=== PATIENT | female | born 1965 | race Caucasian/White ===

== ENCOUNTER 2016-05-04 12:54 | Emergency (ER) | payer MEDICAID ==
--- NOTE | 2016-05-04 14:04 | ER Document Report ---
ED Medical Screen (RME) - General Chief Complaint: Blood in Catheter Stated Complaint: URINARY PROBLEM Mode of Arrival: Wheelchair Information source: Patient Notes: Patient states she is having blood in her urine in indweling marin bag with clots that started today. She denies any pain. She thinks she has had a bladder infection since last week. She states this has never happened before. She has chronic back pain and does not think it is related to this problem. Denies fever , chills, nausea, vomiting, diarrhea, vaginal discharge. She spoke with on-call nurse who instructed her to come to ED. TRAVEL OUTSIDE OF THE [place] IN LAST 30 DAYS: No - Related Data Allergies/Adverse Reactions: ziprasidone HCl [From Geodon] Allergy (Mild, Verified 05/04/16 13:03) itching acetaminophen [Acetaminophen] Adverse Reaction (Unknown, Verified 05/04/16 13:03 ) Past Medical History - Past Medical History Cardiac Medical History: Reports: Hx Atrial Fibrillation, Hx Congestive Heart Failure, Hx Coronary Artery Disease, Hx Hypercholesterolemia, Hx Hypertension, Hx Heart Murmur Pulmonary Medical History: Reports: Hx Asthma, Hx Bronchitis, Hx COPD, Hx Pneumonia, Hx Intubation, Hx Respiratory Failure, Hx Sleep Apnea Endocrine Medical History: Reports: Hx Diabetes Mellitus Type 2 Renal/ Medical History: Reports: Hx Renal Insufficiency GI Medical History: Reports: Hx Gastroesophageal Reflux Disease, Hx Hiatal Hernia Musculoskeltal Medical History: Reports Hx Arthritis, Reports Hx Fibromyalgia Psychiatric Medical History: Reports: Hx Attention Deficit Hyperactivity Disorder, Hx Bipolar Disorder, Hx Depression Traumatic Medical History: Reports: Hx Fractures Infectious Medical History: Reports: Hx C-Diff, Hx MRSA Past Surgical History: Reports: Hx Appendectomy, Hx Tonsillectomy - Immunizations Hx Diphtheria, Pertussis, Tetanus Vaccination: Yes Review of Systems - Review of Systems Constitutional: See HPI Gastrointestinal: See HPI Genitourinary: See HPI Physical Exam - Vital signs Vitals: Temp Pulse Resp BP Pulse Ox 97.5 F 69 20 131/55 H 97 05/04/16 13:00 05/04/16 13:00 05/04/16 13:00 05/04/16 13:00 05/04/16 13:00 - Notes Notes: General: well-appearing, no respiratory distress : dark red urine noted in marin bag and tubing. Course - Re-evaluation Re-evalutation: 05/04/16 14:03 Patient seen and examined. VSS, hematuria noted in marin bag. Ordered urinalysis. - Vital Signs Vital signs: Temp Pulse Resp BP Pulse Ox 97.5 F 69 20 131/55 H 97 05/04/16 13:00 05/04/16 13:00 05/04/16 13:00 05/04/16 13:00 05/04/16 13:00
[2016-05-04 14:46] LABS: APPEARANCE,URINE TURBID; BILIRUBIN,URINE NEGATIVE (NEGATIVE); GLUCOSE, URINE NEGATIVE (NEGATIVE); KETONES,URINE NEGATIVE (NEGATIVE); LEUKOCYTE ESTERASE,URINE MODERATE (NEGATIVE); NITRITE,URINE POSITIVE (NEGATIVE); PROTEIN,URINE 100 mg/dL (NEGATIVE); URINE SPECIFIC GRAVITY 1.013; UROBILINOGEN,URINE NEGATIVE mg/dL (<2.0)
--- NOTE | 2016-05-04 18:09 | ER Document Report ---
ED General - General Chief Complaint: Blood in Catheter Stated Complaint: URINARY PROBLEM Mode of Arrival: Wheelchair Notes: This is a 50-year-old female with a history of COPD hypertension diabetes mellitus type II lymphedema CHF that presents today with a one-day history of hematuria. She states that she noticed blood in her catheter bag at 12 noon today. Denies nausea vomiting fever chills chest pain shortness of breath. Primary care physician is Dr. Danica Jerry. TRAVEL OUTSIDE OF THE [place] IN LAST 30 DAYS: No - Related Data Allergies/Adverse Reactions: ziprasidone HCl [From Geodon] Allergy (Mild, Verified 05/04/16 13:03) itching acetaminophen [Acetaminophen] Adverse Reaction (Unknown, Verified 05/04/16 13:03 ) Past Medical History - General Information source: Patient - Social History Smoking Status: Unknown if Ever Smoked Family History: Reviewed & Not Pertinent, CAD, DM, Hypertension Patient has suicidal ideation: No Patient has homicidal ideation: No - Past Medical History Cardiac Medical History: Reports: Hx Atrial Fibrillation, Hx Congestive Heart Failure, Hx Coronary Artery Disease, Hx Hypercholesterolemia, Hx Hypertension, Hx Heart Murmur Pulmonary Medical History: Reports: Hx Asthma, Hx Bronchitis, Hx COPD, Hx Pneumonia, Hx Intubation, Hx Respiratory Failure, Hx Sleep Apnea Endocrine Medical History: Reports: Hx Diabetes Mellitus Type 2 Renal/ Medical History: Reports: Hx Renal Insufficiency GI Medical History: Reports: Hx Gastroesophageal Reflux Disease, Hx Hiatal Hernia Musculoskeltal Medical History: Reports Hx Arthritis, Reports Hx Fibromyalgia Psychiatric Medical History: Reports: Hx Attention Deficit Hyperactivity Disorder, Hx Bipolar Disorder, Hx Depression Traumatic Medical History: Reports: Hx Fractures Infectious Medical History: Reports: Hx C-Diff, Hx MRSA Past Surgical History: Reports: Hx Appendectomy, Hx Tonsillectomy - Immunizations Hx Diphtheria, Pertussis, Tetanus Vaccination: Yes Hx Pneumococcal Vaccination: 05/06/09 Review of Systems - Review of Systems Constitutional: denies: Chills, Diaphoresis, Fever, Weakness Cardiovascular: denies: Chest pain, Palpitations Respiratory: denies: Cough, Hurts to breathe Genitourinary: See HPI Female Genitourinary: See HPI Musculoskeletal: denies: Muscle pain Physical Exam - Vital signs Vitals: Temp Pulse Resp BP Pulse Ox 97.5 F 69 20 131/55 H 97 05/04/16 13:00 05/04/16 13:00 05/04/16 13:00 05/04/16 13:00 05/04/16 13:00 - General General appearance: Alert In distress: None - HEENT Head: Normocephalic, Atraumatic Eyes: Normal - Respiratory Respiratory status: No respiratory distress Breath sounds: Normal. No: Rales, Rhonchi, Stridor, Wheezing - Cardiovascular Rhythm: Regular Heart sounds: Normal auscultation - Abdominal Inspection: Normal Tenderness: No: Tender - Extremities General upper extremity: Normal inspection General lower extremity: Normal inspection - Psychological Associated symptoms: Normal affect - Skin Skin Temperature: Warm Skin Moisture: Dry Skin Color: Normal Course - Re-evaluation Re-evalutation: 05/04/16 18:12 Catheter was flushed and bladder bag no longer has blood. There are no more clots in in the catheter line nor in the bag. Patient admits to some dysuria. WIll treat mild UTI. She denies flank pain, fever, chills. Vitals are normal. - Vital Signs Vital signs: Temp Pulse Resp BP Pulse Ox 97.6 F 65 20 143/60 H 95 05/04/16 18:11 05/04/16 18:11 05/04/16 18:11 05/04/16 18:11 05/04/16 18:11 - Laboratory Laboratory results interpreted by me: 05/04/16 14:15 Urine Protein 100 H Urine Blood MODERATE H Urine Nitrite POSITIVE H Ur Leukocyte Esterase MODERATE H Discharge - Discharge Clinical Impression: Hematuria Urinary tract infection Qualifiers: Urinary tract infection type: site unspecified Hematuria presence: with hematuria Qualified Code(s): N39.0 - Urinary tract infection, site not specified Condition: Stable Disposition: HOME, SELF-CARE Additional Instructions: Return to the emergency department if symptoms worsen. Follow-up with primary care physician. Prescriptions: Sulfamethoxazole/Trimethoprim [Bactrim Ds Tablet] 1 each PO BID #6 tablet Referrals: PACO NEGRETE MD [Primary Care Provider] - Follow up as needed
[2016-05-04 18:13] VITALS: BP 143/60
== END 2016-05-04 18:16 | disposition home or self-care (01) ==
LOC: ER 12:54
DX: N39.0 Urinary tract infection, site not specified (principal); R31.9 Hematuria, unspecified; T83.9XXA Unspecified complication of genitourinary prosthetic device, implant and graft, initial encounter; J44.9 Chronic obstructive pulmonary disease, unspecified; I10 Essential (primary) hypertension; E11.9 Type 2 diabetes mellitus without complications; I50.9 Heart failure, unspecified
CPT/HCPCS: 81001; 87086; 87088; 87186; 99283

== ENCOUNTER → 2016-05-14 | Outpatient (CLI) | payer MEDICAID ==
--- NOTE | 2016-05-14 17:54 | WOMENS IMAGING REPORT ---
EXAM DESCRIPTION: U/S BREAST UNILAT LIMITED COMPLETED DATE/TIME: 05/14/2016 1:36 pm REASON FOR STUDY: R92.2 INCONCLUSIVE MAMMO N63 UNSPECIFIED LUMP IN BREAST COMPARISON: Mammograms 04/17/2016 TECHNIQUE: Real-time and static grayscale imaging performed of the right and left breast targeted to the area of mammographic concern. Selected color Doppler images recorded. LIMITATIONS: None. FINDINGS: On the right side, a benign intramammary lymph node is present in the foreign matter old r ight 9 o'clock position, measuring about 13 x 8 mm in size. This correlates with the mammographic fi ndings. In the far left upper outer quadrant near the axillary tail, a 6 x 8 mm intramammary lymph node is pr esent, correlating with the mammographic findings. BIRAD: 2 Benign findings. RECOMMENDATION: RECOMMENDED FOLLOW-UP: Please continue yearly screening in April 2017 COMMENT: The [employer] (A[employer]) has developed recommendations for screening MRI of the breasts in certain patient populations, to be used in conjunction with mammography. Breast MRI s urveillance may be appropriate for women with more than 20% lifetime risk of developing breast cancer as determined by genetic testing, significant family history of the disease, or history of mantle r adiation for Hodgkins Disease. ACR Practice Guidelines 2008. TECHNICAL DOCUMENTATION: JOB ID: [id number] [employer]- All Rights Reserved
== END ==
LOC: WI 12:36
PROVIDERS: ATTEND Physician Assistant
DX: R92.2 Inconclusive mammogram (principal)
CPT/HCPCS: 76642

== ENCOUNTER 2016-07-25 11:43 | Emergency (ER) | payer MEDICAID ==
[2016-07-25] MEDS ORDERED: ONDANSETRON HCL INJ/PF 4 MG/2 ML SDV IV ONE (12:22)
[2016-07-25] MEDS ORDERED: IPRATROPIUM/ALBUTEROL 0.5-2.5 MG/3 ML AMPUL NEB ONE (12:22)
[2016-07-25] MEDS ORDERED: PREDNISONE 20 MG TABLET PO ONE (12:22)
[2016-07-25 13:05] LABS: ABSOLUTE EOSINOPHILS # (AUTO) 0.1 10^3/uL (0.0-0.6); ABSOLUTE LYMPHOCYTES (AUTO) 0.8 10^3/uL (0.5-4.7); ABSOLUTE MONOCYTES (AUTO) 0.6 10^3/uL (0.1-1.4); ABSOLUTE NEUT (AUTO) 7.4 10^3/uL (1.7-8.2); BASOPHILS % (AUTO) 0.2 % (0-2); EOSINOPHILS % (AUTO) 0.9 % (0-6); HEMATOCRIT 34.5 % (36.0-47.0); HEMOGLOBIN 11.4 g/dL (12.0-15.5); HGB HCT DIFFERENCE -0.3; LYMPHOCYTES % (AUTO) 9.2 % (13-45); MEAN CORPUSCULAR HEMOGLOBIN 26.4 pg (27.0-33.4); MEAN CORPUSCULAR HGB CONC 33.2 g/dL (32.0-36.0); MEAN CORPUSCULAR VOLUME 80 fl (80-97); MONOCYTES % (AUTO) 6.8 % (3-13); RED BLOOD COUNT 4.34 10^6/uL (3.72-5.28); RED CELL DISTRIBUTION WIDTH 15.8 % (11.5-14.0); SEGMENTED NEUTROPHILS % (AUTO) 82.9 % (42-78)
[2016-07-25 13:20] LABS: ALANINE AMINOTRANSFERASE 27 U/L (9-52); ALBUMIN 3.7 g/dL (3.5-5.0); ALKALINE PHOSPHATASE 84 U/L (38-126); ANION GAP 12 (5-19); ASPARTATE AMINO TRANSFERASE 16 U/L (14-36); BILIRUBIN,DIRECT 0.2 mg/dL (0.0-0.4); BILIRUBIN,TOTAL 0.4 mg/dL (0.2-1.3); BLOOD UREA NITROGEN 13 mg/dL (7-20); CALCIUM 9.2 mg/dL (8.4-10.2); CARBON DIOXIDE 33 mmol/L (22-30); CHLORIDE 90 mmol/L (98-107); CREATINE KINASE 28 U/L (30-135); CREATININE RESULT 0.76 mg/dL (0.52-1.25); GLUCOSE 101 mg/dL (75-110); LIPASE 113.7 U/L (23-300); MAGNESIUM 1.5 mg/dL (1.6-2.3); POTASSIUM 3.8 mmol/L (3.6-5.0); SODIUM 135.3 mmol/L (137-145); TOTAL PROTEIN 6.6 g/dL (6.3-8.2)
[2016-07-25 13:33] LABS: CREATINE KINASE MB 0.24 ng/mL (<4.55)
[2016-07-25 13:36] LABS: TROPONIN I < 0.012 ng/mL
[2016-07-25] MEDS ORDERED: MAGNESIUM OXIDE 400 MG TABLET PO ONE (14:47)
[2016-07-25] MEDS ORDERED: LIDOCAINE 2% VISCOUS SOLN 20 ML UDCUP PO ONE (14:51)
[2016-07-25] MEDS ORDERED: MAG HYDROX/AL HYDROX/SIMETH SUSP 30 ML UDCUP PO ONE (14:51)
--- NOTE | 2016-07-25 15:25 | ER Document Report ---
ED GI/ - General Chief Complaint: Nausea Stated Complaint: NAUSEA,UNABLE TO EAT Mode of Arrival: Wheelchair Information source: Patient Notes: Patient reports nausea for the past week. Patient does complain of some mild epigastric pain. Patient denies any chest pain, cough, or fever. Patient states she has not had any vomiting but does not really she can keep her food down. Patient does have epigastric pain, but states that it feels similar to when she's had problems with reflux in the past. TRAVEL OUTSIDE OF THE [place] IN LAST 30 DAYS: No - HPI Patient complains to provider of: Abdominal pain Onset: Last week Timing/Duration: Persistent Quality of pain: Burning Pain Level: 2 Location: Epigastric Vaginal bleeding (Compared to normal period): None Associated symptoms: Nausea. denies: Dizzy, Dysuria, Fever, Urinary hesitancy, Urinary frequency, Urinary retention, Vaginal discharge, Vomiting Exacerbated by: Denies Relieved by: Denies Similar symptoms previously: Yes - GERD Recently seen / treated by doctor: No - Related Data Allergies/Adverse Reactions: ziprasidone HCl [From Geodon] Allergy (Mild, Verified 05/04/16 13:03) itching acetaminophen [Acetaminophen] Adverse Reaction (Unknown, Verified 05/04/16 13:03 ) Past Medical History - General Information source: Patient - Social History Smoking Status: Current Every Day Smoker - Half pack per day Frequency of alcohol use: None Drug Abuse: None Lives with: Friend Family History: Reviewed & Not Pertinent, CAD, DM, Hypertension - Past Medical History Cardiac Medical History: Reports: Hx Atrial Fibrillation, Hx Congestive Heart Failure, Hx Coronary Artery Disease, Hx Hypercholesterolemia, Hx Hypertension, Hx Heart Murmur Pulmonary Medical History: Reports: Hx Asthma, Hx Bronchitis, Hx COPD, Hx Pneumonia, Hx Intubation, Hx Respiratory Failure, Hx Sleep Apnea Endocrine Medical History: Reports: Hx Diabetes Mellitus Type 2 Renal/ Medical History: Reports: Hx Renal Insufficiency GI Medical History: Reports: Hx Gastroesophageal Reflux Disease, Hx Hiatal Hernia Musculoskeltal Medical History: Reports Hx Arthritis, Reports Hx Fibromyalgia Psychiatric Medical History: Reports: Hx Attention Deficit Hyperactivity Disorder, Hx Bipolar Disorder, Hx Depression Traumatic Medical History: Reports: Hx Fractures Infectious Medical History: Reports: Hx C-Diff, Hx MRSA Past Surgical History: Reports: Hx Appendectomy, Hx Tonsillectomy - Immunizations Hx Diphtheria, Pertussis, Tetanus Vaccination: Yes Hx Pneumococcal Vaccination: 05/06/09 Review of Systems - Review of Systems Constitutional: No symptoms reported. denies: Fever, Recent illness EENT: No symptoms reported Cardiovascular: No symptoms reported. denies: Chest pain, Dizziness Respiratory: No symptoms reported, Cough. denies: Short of breath Gastrointestinal: Abdominal pain, Diarrhea - Chronic, Nausea. denies: Vomiting Genitourinary: Other - Chronic indwelling Ceja Female Genitourinary: No symptoms reported Musculoskeletal: No symptoms reported. denies: Back pain Skin: No symptoms reported Hematologic/Lymphatic: No symptoms reported Neurological/Psychological: No symptoms reported Physical Exam - Vital signs Vitals: Temp Pulse Resp BP Pulse Ox 98.9 F 78 28 H 156/59 H 96 07/25/16 11:48 07/25/16 11:48 07/25/16 11:48 07/25/16 11:48 07/25/16 11:48 - General General appearance: Appears well, Alert In distress: None - HEENT Head: Normocephalic, Atraumatic Eyes: Normal Conjunctiva: Normal Nasal: Normal Mouth/Lips: Normal Mucous membranes: Normal Neck: Normal, Supple. No: Lymphadenopathy - Respiratory Respiratory status: No respiratory distress Chest status: Nontender Breath sounds: Nonproductive cough, Wheezing Chest palpation: Normal - Cardiovascular Rhythm: Regular Heart sounds: S1 appreciated, S2 appreciated Murmur: No - Abdominal Inspection: Morbidly Obese - With very large pannus, ventral hernia nontender to palpation Distension: No distension Bowel sounds: Normal Tenderness: Tender - Mild epigastric tenderness - Back Back: Normal, Nontender. No: CVA tenderness - Extremities General upper extremity: Normal inspection, Normal ROM General lower extremity: Normal inspection, Normal ROM - Neurological Neuro grossly intact: Yes Cognition: Normal Gissel Coma Scale Eye Opening: Spontaneous [place] Coma Scale Verbal: Oriented Gissel Coma Scale Motor: Obeys Commands Gissel Coma Scale Total: 15 - Psychological Associated symptoms: Normal affect, Normal mood - Skin Skin Temperature: Warm Skin Moisture: Dry Skin Color: Erythema - to folds under her pannus and inguinal area Course - Re-evaluation Re-evalutation: 07/25/16 15:19 Abdominal pain resolved. Patient states she feels better after GI cocktail as well as the nausea medication. Patient is requesting to be discharged home. Patient states that she has a home health provider that comes to change her catheter next week and currently denies any change in the look of the urinary drainage to her back. Patient denies any concern about UTI this time. Patient without any lower pelvic pain. Patient's wheezing improved after nebulizer treatment. No concern for cardiac pathology at this time. - Vital Signs Vital signs: Temp Pulse Resp BP Pulse Ox 98.9 F 87 24 H 153/68 H 92 07/25/16 11:48 07/25/16 15:39 07/25/16 15:39 07/25/16 15:39 07/25/16 15:39 - Laboratory Result Diagrams: 07/25/16 12:54 07/25/16 12:54 Laboratory results interpreted by me: 07/25/16 07/25/16 12:54 12:54 Hgb 11.4 L Hct 34.5 L MCH 26.4 L RDW 15.8 H Seg Neutrophils % 82.9 H Lymphocytes % 9.2 L Sodium 135.3 L Chloride 90 L Carbon Dioxide 33 H Magnesium 1.5 L Creatine Kinase 28 L 07/25/16 15:22 Labs- Entire Visit 07/25/16 07/25/16 07/25/16 12:54 12:54 12:54 WBC 9.0 RBC 4.34 Hgb 11.4 L Hct 34.5 L MCV 80 MCH 26.4 L MCHC 33.2 RDW 15.8 H Plt Count 150 Seg Neutrophils % 82.9 H Lymphocytes % 9.2 L Monocytes % 6.8 Eosinophils % 0.9 Basophils % 0.2 Absolute Neutrophils 7.4 Absolute Lymphocytes 0.8 Absolute Monocytes 0.6 Absolute Eosinophils 0.1 Absolute Basophils 0.0 Sodium 135.3 L Potassium 3.8 Chloride 90 L Carbon Dioxide 33 H Anion Gap 12 BUN 13 Creatinine 0.76 Est GFR ( Amer) > 60 Est GFR (Non-Af Amer) > 60 Glucose 101 Calcium 9.2 Magnesium 1.5 L Total Bilirubin 0.4 Direct Bilirubin 0.2 Indirect Bilirubin Not Reportable Neonat Total Bilirubin Not Reportable AST 16 ALT 27 Alkaline Phosphatase 84 Creatine Kinase 28 L CK-MB (CK-2) 0.24 Troponin I < 0.012 Total Protein 6.6 Albumin 3.7 Lipase 113.7 07/25/16 18:23 - Diagnostic Test Radiology reviewed: Reports reviewed Discharge - Discharge Clinical Impression: Nausea, Epigastric pain, Hx of gastroesophageal reflux (GERD), Wheezing, Asthma exacerbation, Hypomagnesemia, Xiao infection of flexural skin Disposition: HOME, SELF-CARE Instructions: Abdominal Pain ([facility]), Antinausea Medication ([facility]), Nausea or Vomiting, Nonspecific ([facility]), Reflux Disease (GERD) ([facility]), Asthma ([facility]), Steroid Medication Additional Instructions: Return immediately for any new or worsening symptoms Followup with your primary care provider, call Wednesday to make a follow-up appointment Continue to take your Prilosec as previously prescribed. You may take over-the- counter Maalox to help with reflux symptoms. Prescriptions: Magnesium Oxide [Magox] 400 mg PO BID #14 tablet Nystatin [Mycostatin Cream 15 gm] 1 applic TP BID #60 gm Ondansetron HCl [Zofran 4 mg Tablet] 1 - 2 tab PO Q6 PRN #15 tablet PRN Reason: Prednisone [Deltasone 20 mg Tablet] 3 tab PO DAILY 4 Days Referrals: MARILYNN BAY PA-C [Primary Care Provider] - 07/27/16
[2016-07-25 15:41] VITALS: BP 153/68
--- NOTE | 2016-07-25 17:13 | EKG REPORT ---
SEVERITY:- BORDERLINE ECG - SINUS RHYTHM BORDERLINE R WAVE PROGRESSION, ANTERIOR LEADS NONSPECIFIC LATERAL ST-T CHANGES : Confirmed by: Juan Avalos MD 25-Jul-2016 17:12:44
== END 2016-07-25 15:41 | disposition home or self-care (01) ==
LOC: ER 11:43
DX: R11.0 Nausea (principal); R10.13 Epigastric pain; K21.9 Gastro-esophageal reflux disease without esophagitis; J45.901 Unspecified asthma with (acute) exacerbation; E83.42 Hypomagnesemia; B37.2 Candidiasis of skin and nail; R19.7 Diarrhea, unspecified; E66.01 Morbid (severe) obesity due to excess calories; F17.210 Nicotine dependence, cigarettes, uncomplicated; I48.91 Unspecified atrial fibrillation; I50.9 Heart failure, unspecified; I25.10 Atherosclerotic heart disease of native coronary artery without angina pectoris; E78.00 Pure hypercholesterolemia, unspecified; I11.0 Hypertensive heart disease with heart failure; E11.9 Type 2 diabetes mellitus without complications; J44.9 Chronic obstructive pulmonary disease, unspecified; Z88.6 Allergy status to analgesic agent; Z86.14 Personal history of Methicillin resistant Staphylococcus aureus infection
CPT/HCPCS: 93005; 94640; 99284; 96374; 36415; 82553; 82550; 83690; 83735; 85025; 80053; 84484; 71010; 93010; J3490 ×3; J7512; J2405; J7620

== ENCOUNTER 2016-07-25 20:47 | Emergency (ER) | payer MEDICAID ==
[2016-07-25] MEDS ORDERED: HYDROCODONE/ACETAMINOPHEN 5-325 MG TABLET PO ONE (21:19)
[2016-07-25] MEDS ORDERED: ONDANSETRON 4 MG TAB.RAPDIS PO ONE (21:20)
[2016-07-25] MEDS ORDERED: FAMOTIDINE 20 MG TABLET PO ONE (21:20)
[2016-07-25] MEDS ORDERED: SUCRALFATE 1 GM TABLET PO ONE (21:20)
--- NOTE | 2016-07-25 21:23 | ER Document Report ---
ED GI/ - General Chief Complaint: Epigastric Pain Stated Complaint: ABDOMINAL PAIN Time seen by provider: 21:15 Notes: Patient is a 50-year-old female that comes emergency department by EMS for chief complaint of upper abdominal pain. She states that when she was seen earlier she was given a "GI cocktail", and after this she felt much improved, she states after she went home seemed to wear off and she began to feel pain and nausea again. She states she has had nausea for about one week and today started feeling discomfort in her mid upper abdomen. 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 She states she thinks she had a hiatal hernia repair in the past but thinks it "slipped out". She has had an appendectomy. Patient states she had a normal bowel movement yesterday. She denies fever. Patient denies any other complaints. TRAVEL OUTSIDE OF THE [place] IN LAST 30 DAYS: No - Related Data Allergies/Adverse Reactions: ziprasidone HCl [From Geodon] Allergy (Mild, Verified 05/04/16 13:03) itching acetaminophen [Acetaminophen] Adverse Reaction (Unknown, Verified 05/04/16 13:03 ) Past Medical History - General Information source: Patient - Social History Smoking Status: Never Smoker Lives with: Family Family History: Reviewed & Not Pertinent, CAD, DM, Hypertension - Past Medical History Cardiac Medical History: Reports: Hx Atrial Fibrillation, Hx Congestive Heart Failure, Hx Coronary Artery Disease, Hx Hypercholesterolemia, Hx Hypertension, Hx Heart Murmur Pulmonary Medical History: Reports: Hx Asthma, Hx Bronchitis, Hx COPD, Hx Pneumonia, Hx Intubation, Hx Respiratory Failure, Hx Sleep Apnea Endocrine Medical History: Reports: Hx Diabetes Mellitus Type 2 Renal/ Medical History: Reports: Hx Renal Insufficiency GI Medical History: Reports: Hx Gastroesophageal Reflux Disease, Hx Hiatal Hernia Musculoskeltal Medical History: Reports Hx Arthritis, Reports Hx Fibromyalgia Psychiatric Medical History: Reports: Hx Attention Deficit Hyperactivity Disorder, Hx Bipolar Disorder, Hx Depression Traumatic Medical History: Reports: Hx Fractures Infectious Medical History: Reports: Hx C-Diff, Hx MRSA Past Surgical History: Reports: Hx Appendectomy, Hx Tonsillectomy - Immunizations Hx Diphtheria, Pertussis, Tetanus Vaccination: Yes Hx Pneumococcal Vaccination: 05/06/09 Review of Systems - Review of Systems Constitutional: No symptoms reported EENT: No symptoms reported Cardiovascular: No symptoms reported Respiratory: No symptoms reported Gastrointestinal: See HPI Genitourinary: No symptoms reported Female Genitourinary: No symptoms reported Musculoskeletal: No symptoms reported Skin: No symptoms reported Hematologic/Lymphatic: No symptoms reported Neurological/Psychological: No symptoms reported Physical Exam - Vital signs Vitals: Resp BP Pulse Ox 25 H 154/102 H 96 07/25/16 20:56 07/25/16 20:56 07/25/16 20:56 Interpretation: Normal - General General appearance: Appears well In distress: None - Patient is extremely obese, lying on her side, however she is alert and well-appearing - HEENT Head: Normocephalic, Atraumatic Eyes: Normal Conjunctiva: Normal Extraocular movements intact: Yes Eyelashes: Normal Pupils: PERRL Nasal: Normal Mouth/Lips: Normal Mucous membranes: Normal Pharynx: Normal Neck: Normal - Respiratory Respiratory status: No respiratory distress Chest status: Nontender Breath sounds: Decreased air movement, Other - A few scattered rhonchi Chest palpation: Normal - Cardiovascular Rhythm: Regular Heart sounds: Normal auscultation Murmur: No - Abdominal Inspection: Normal Distension: No distension Bowel sounds: Normal Tenderness: Nontender - Exam limited by obesity, however I do not appreciate any tenderness. No: Tender, Guarding - Back Back: Normal, Nontender - Extremities General upper extremity: Normal inspection, Nontender, Normal color, Normal ROM , Normal temperature General lower extremity: Normal inspection, Nontender, Normal color, Normal ROM , Normal temperature, Normal weight bearing. No: Greyson's sign - Neurological Neuro grossly intact: Yes Cognition: Normal Orientation: AAOx4 Gissel Coma Scale Eye Opening: Spontaneous [place] Coma Scale Verbal: Oriented [place] Coma Scale Motor: Obeys Commands Gissel Coma Scale Total: 15 Speech: Normal Motor strength normal: LUE, RUE, LLE, RLE Sensory: Normal - Psychological Associated symptoms: Normal affect, Normal mood - Skin Skin Temperature: Warm Skin Moisture: Dry Skin Color: Normal Course - Re-evaluation Re-evalutation: Patient does not have obvious palpable abdominal tenderness, however because patient is extremely morbidly obese this is difficult to evaluate. Patient is resting comfortably, no tachycardia, no hypotension, is very well-appearing. Patient reporting the GI cocktail made her feel significantly better but only for a short time and then this resolved. Patient given Carafate, Zofran, Pepcid , she also asked for Vicodin, given [place], afterwards she complained that the acetaminophen in it gave her restless legs. Laboratory workup with no significant change. Patient is impossible to perform imaging on because of her massive size. Patient still well-appearing and stating she feels much better after medications. I discussed with patient, she states she is supposed to get a colonoscopy coming up, this will happen in the or, recommended she contact the bioprocess engineer Dr. Long for the very soon upcoming colonoscopy and discussed the possibility of doing an EGD at the same time. Patient and relatives state understanding and agreement with this plan, states they will do so, discussed return precautions, they state agreement again. Patient also states she does not want to take prednisone because her breathing is at her normal, I did state that prednisone could potentially worsen her gastrointestinal symptoms and if her breathing is truly at her norm then this is an option for her. - Vital Signs Vital signs: Temp Pulse Resp BP Pulse Ox 78 20 138/69 H 94 07/26/16 00:20 07/26/16 00:20 07/26/16 00:20 07/26/16 00:20 - Laboratory Result Diagrams: 07/25/16 22:00 07/25/16 22:00 Laboratory results interpreted by me: 07/25/16 07/25/16 22:00 22:00 MCV 79 L MCH 26.4 L RDW 15.3 H Plt Count 146 L Seg Neutrophils % 90.7 H Lymphocytes % 6.4 L Monocytes % 2.6 L Sodium 135.5 L Chloride 90 L Carbon Dioxide 32 H Glucose 135 H Discharge - Discharge Clinical Impression: Nausea, Epigastric pain Condition: Stable Disposition: HOME, SELF-CARE Additional Instructions: Symptoms seem to be coming from the upper part of the gastrointestinal system, the end of the esophagus and stomach most likely. Take the prescribed medications today, I recommended her breathing is normal that you avoid the prednisone because this can worsen her symptoms. Please follow-up with your bioprocess engineer, I recommend that you get an endoscopy in addition to a colonoscopy performed. Return to emergency department for any concerning or worsening symptoms including black stools, severe abdominal pain, fever, etc. Prescriptions: Omeprazole 40 mg PO DAILY #60 capsule. Sucralfate [Carafate 1 gm Tablet] 1 gm PO ACHS #20 tablet Referrals: MARILYNN BAY PA-C [Primary Care Provider] - Follow up as needed RUSSELL LONG MD [ACTIVE STAFF] - Follow up in 1 week
[2016-07-25 22:31] LABS: ABSOLUTE LYMPHOCYTES (AUTO) 0.5 10^3/uL (0.5-4.7); ABSOLUTE MONOCYTES (AUTO) 0.2 10^3/uL (0.1-1.4); ABSOLUTE NEUT (AUTO) 6.5 10^3/uL (1.7-8.2); BASOPHILS % (AUTO) 0.2 % (0-2); EOSINOPHILS % (AUTO) 0.1 % (0-6); HEMATOCRIT 36.3 % (36.0-47.0); HEMOGLOBIN 12.1 g/dL (12.0-15.5); LYMPHOCYTES % (AUTO) 6.4 % (13-45); MEAN CORPUSCULAR HEMOGLOBIN 26.4 pg (27.0-33.4); MEAN CORPUSCULAR HGB CONC 33.4 g/dL (32.0-36.0); MEAN CORPUSCULAR VOLUME 79 fl (80-97); MONOCYTES % (AUTO) 2.6 % (3-13); RED BLOOD COUNT 4.59 10^6/uL (3.72-5.28); RED CELL DISTRIBUTION WIDTH 15.3 % (11.5-14.0); SEGMENTED NEUTROPHILS % (AUTO) 90.7 % (42-78); WHITE BLOOD COUNT 7.2 10^3/uL (4.0-10.5)
[2016-07-25 22:43] LABS: ALANINE AMINOTRANSFERASE 31 U/L (9-52); ALKALINE PHOSPHATASE 91 U/L (38-126); ANION GAP 14 (5-19); ASPARTATE AMINO TRANSFERASE 17 U/L (14-36); BILIRUBIN,DIRECT 0.3 mg/dL (0.0-0.4); BILIRUBIN,TOTAL 0.5 mg/dL (0.2-1.3); BLOOD UREA NITROGEN 15 mg/dL (7-20); CALCIUM 9.4 mg/dL (8.4-10.2); CARBON DIOXIDE 32 mmol/L (22-30); CHLORIDE 90 mmol/L (98-107); CREATININE RESULT 0.88 mg/dL (0.52-1.25); GLUCOSE 135 mg/dL (75-110); LIPASE 79.6 U/L (23-300); SODIUM 135.5 mmol/L (137-145); TOTAL PROTEIN 7.3 g/dL (6.3-8.2)
[2016-07-25] MEDS ORDERED: OXYCODONE HCL IR 5 MG TABLET PO ONE (22:55)
[2016-07-26 00:38] VITALS: BP 138/69
== END 2016-07-26 00:20 | disposition home or self-care (01) ==
LOC: ER 20:47
DX: R10.13 Epigastric pain (principal); R11.0 Nausea; E66.01 Morbid (severe) obesity due to excess calories; J96.10 Chronic respiratory failure, unspecified whether with hypoxia or hypercapnia; I48.91 Unspecified atrial fibrillation; I50.9 Heart failure, unspecified; I11.0 Hypertensive heart disease with heart failure; E11.9 Type 2 diabetes mellitus without complications; K21.9 Gastro-esophageal reflux disease without esophagitis; Z88.6 Allergy status to analgesic agent; Z93.0 Tracheostomy status; Z86.14 Personal history of Methicillin resistant Staphylococcus aureus infection
CPT/HCPCS: 99284; 36415; 83690; 85025; 80053; J3490 ×3; S0119

== ENCOUNTER 2016-09-12 16:30 | Emergency (ER) | payer OTHER, MEDICAID ==
[2016-09-12] MEDS ORDERED: LORAZEPAM 0.5 MG TABLET PO ONE (16:43)
[2016-09-12] MEDS ORDERED: IPRATROPIUM/ALBUTEROL 0.5-2.5 MG/3 ML AMPUL NEB ONE (16:43)
[2016-09-12] MEDS ORDERED: ALBUTEROL SULFATE 0.083% NEB 2.5 MG/3 ML AMPUL NEB ONE (16:43)
--- NOTE | 2016-09-12 16:44 | ER Document Report ---
ED Respiratory Problem - General Chief Complaint: Respiratory Distress Stated Complaint: RESPIRATORY DISTRESS Time Seen by Provider: 09/12/16 16:42 Mode of Arrival: Medic Information source: Patient Notes: Pt is a 50 year old pt with a trach who presents to the ER today for anxiety and panic attack. She states that in the ambulance on the way she noticed some wheezing, she does have COPD and chronic respiratory failure, is on 6L at home normally. She denies chest pain, recent cough or other symptoms. TRAVEL OUTSIDE OF THE [place] IN LAST 30 DAYS: No - Related Data Allergies/Adverse Reactions: ziprasidone HCl [From Geodon] Allergy (Mild, Verified 05/04/16 13:03) itching acetaminophen [Acetaminophen] Adverse Reaction (Unknown, Verified 05/04/16 13:03 ) Past Medical History - General Information source: Patient - Social History Smoking Status: Unknown if Ever Smoked Family History: Reviewed & Not Pertinent, CAD, DM, Hypertension - Past Medical History Cardiac Medical History: Reports: Hx Atrial Fibrillation, Hx Congestive Heart Failure, Hx Coronary Artery Disease, Hx Hypercholesterolemia, Hx Hypertension, Hx Heart Murmur Pulmonary Medical History: Reports: Hx Asthma, Hx Bronchitis, Hx COPD, Hx Pneumonia, Hx Intubation, Hx Respiratory Failure, Hx Sleep Apnea Endocrine Medical History: Reports: Hx Diabetes Mellitus Type 2 Renal/ Medical History: Reports: Hx Renal Insufficiency GI Medical History: Reports: Hx Gastroesophageal Reflux Disease, Hx Hiatal Hernia Musculoskeltal Medical History: Reports Hx Arthritis, Reports Hx Fibromyalgia Psychiatric Medical History: Reports: Hx Attention Deficit Hyperactivity Disorder, Hx Bipolar Disorder, Hx Depression Traumatic Medical History: Reports: Hx Fractures Infectious Medical History: Reports: Hx C-Diff, Hx MRSA Past Surgical History: Reports: Hx Appendectomy, Hx Tonsillectomy - Immunizations Hx Diphtheria, Pertussis, Tetanus Vaccination: Yes Hx Pneumococcal Vaccination: 05/06/09 Review of Systems - Review of Systems Constitutional: No symptoms reported EENT: No symptoms reported Cardiovascular: No symptoms reported Respiratory: See HPI Gastrointestinal: No symptoms reported Genitourinary: No symptoms reported Female Genitourinary: No symptoms reported Musculoskeletal: No symptoms reported Skin: No symptoms reported Hematologic/Lymphatic: No symptoms reported Neurological/Psychological: See HPI Physical Exam - Vital signs Vitals: Resp Pulse Ox 41 H 90 L 09/12/16 16:47 09/12/16 16:47 - Notes Notes: PHYSICAL EXAMINATION: GENERAL: Chronically ill-appearing, morbidly obese, but in no acute distress. HEAD: Atraumatic, normocephalic. EYES: Pupils equal round and reactive to light, extraocular movements intact, sclera anicteric, conjunctiva are normal. ENT: ear canals without erythema or foreign body, TMs pearly syed with good bony landmarks, nares patent, oropharynx clear without exudates. Moist mucous membranes. Airway patent NECK: Normal range of motion, supple without lymphadenopathy LUNGS: Mild expiratory wheezes in lower lung gold, no rales or rhonchi. HEART: Regular rate and rhythm without murmurs EXTREMITIES: Normal range of motion, no pitting edema. No cyanosis. NEUROLOGICAL: Cranial nerves grossly intact. Normal sensory/motor exams. PSYCH: Normal mood, normal affect. SKIN: Warm, Dry, normal turgor, no rashes or lesions noted Course - Re-evaluation Re-evalutation: 09/12/16 18:30 Patient was given breathing treatments and 0.5 mg of Ativan and states that she feels better with like to go home. Vitals are all stable. she looks at her baseline. - Vital Signs Vital signs: Temp Pulse Resp BP Pulse Ox 13 153/61 H 99 09/12/16 17:01 09/12/16 17:01 09/12/16 17:01 Discharge - Discharge Clinical Impression: Anxiety, Wheezing Condition: Stable Disposition: HOME, SELF-CARE Instructions: Anxiety ([facility]) Additional Instructions: Return immediately for any new or worsening symptoms. Follow up with primary care provider, call tomorrow to make followup appointment.
[2016-09-12 19:06] VITALS: BP 167/90
== END 2016-09-12 19:26 | disposition home or self-care (01) ==
LOC: ER 16:30
DX: F41.9 Anxiety disorder, unspecified (principal); J44.9 Chronic obstructive pulmonary disease, unspecified; J96.10 Chronic respiratory failure, unspecified whether with hypoxia or hypercapnia; Z99.81 Dependence on supplemental oxygen; E66.01 Morbid (severe) obesity due to excess calories; I25.10 Atherosclerotic heart disease of native coronary artery without angina pectoris; I10 Essential (primary) hypertension; E11.9 Type 2 diabetes mellitus without complications; Z87.01 Personal history of pneumonia (recurrent); Z86.14 Personal history of Methicillin resistant Staphylococcus aureus infection; Z88.8 Allergy status to other drugs, medicaments and biological substances
CPT/HCPCS: 94640 ×2; 99283; 71010; J7620

== ENCOUNTER 2016-09-18 22:06 | Emergency (ER) | payer MEDICAID, OTHER ==
--- NOTE | 2016-09-18 23:20 | ER Document Report ---
ED Respiratory Problem - General Chief Complaint: Other Stated Complaint: TRACH ISSUES Time Seen by Provider: 09/18/16 22:26 Mode of Arrival: Stretcher Information source: Patient TRAVEL OUTSIDE OF THE [place] IN LAST 30 DAYS: No - HPI Patient complains to provider of: Short of breath, Other - Tracheostomy problem Onset: This afternoon Duration: Worse/persistent Quality of pain: No pain Context: Smoker Short of Breath: Mild Chest pain/discomfort: Tightness Cough: Productive Sputum amount: Small Sputum color: White Sputum consistency: Mucoid Associated symptoms: Cough, Short of breath Similar symptoms previously: Yes Recently seen / treated by doctor: Yes Notes: Patient is a 50-year-old female who is well known to this emergency room for respiratory complaints, she presents today requesting that her tracheostomy be replaced because she believes the one is currently clogged from smoking too much , she states it is clogged with nicotine, she also reports that she quit smoking earlier today, she has a cough productive of clear mucus, denies any fever or chest pain - Related Data Allergies/Adverse Reactions: ziprasidone HCl [From Geodon] Allergy (Mild, Verified 05/04/16 13:03) itching acetaminophen [Acetaminophen] Adverse Reaction (Unknown, Verified 05/04/16 13:03 ) Past Medical History - General Information source: Patient - Social History Smoking Status: Former Smoker Chew tobacco use (# tins/day): No Frequency of alcohol use: None Drug Abuse: None Family History: Reviewed & Not Pertinent, CAD, DM, Hypertension - Past Medical History Cardiac Medical History: Reports: Hx Atrial Fibrillation, Hx Congestive Heart Failure, Hx Coronary Artery Disease, Hx Hypercholesterolemia, Hx Hypertension, Hx Heart Murmur Pulmonary Medical History: Reports: Hx Asthma, Hx Bronchitis, Hx COPD, Hx Pneumonia, Hx Intubation, Hx Respiratory Failure, Hx Sleep Apnea Endocrine Medical History: Reports: Hx Diabetes Mellitus Type 2 Renal/ Medical History: Reports: Hx Renal Insufficiency GI Medical History: Reports: Hx Gastroesophageal Reflux Disease, Hx Hiatal Hernia Musculoskeltal Medical History: Reports Hx Arthritis, Reports Hx Fibromyalgia Psychiatric Medical History: Reports: Hx Attention Deficit Hyperactivity Disorder, Hx Bipolar Disorder, Hx Depression Traumatic Medical History: Reports: Hx Fractures Infectious Medical History: Reports: Hx C-Diff, Hx MRSA Past Surgical History: Reports: Hx Appendectomy, Hx Tonsillectomy - Immunizations Hx Diphtheria, Pertussis, Tetanus Vaccination: Yes Hx Pneumococcal Vaccination: 05/06/09 Review of Systems - Review of Systems Constitutional: No symptoms reported EENT: No symptoms reported Cardiovascular: No symptoms reported Respiratory: See HPI Gastrointestinal: No symptoms reported Genitourinary: No symptoms reported Female Genitourinary: No symptoms reported Musculoskeletal: No symptoms reported Skin: No symptoms reported Hematologic/Lymphatic: No symptoms reported Neurological/Psychological: No symptoms reported -: Yes All other systems reviewed and negative Physical Exam - Vital signs Vitals: Temp Pulse Resp BP Pulse Ox 98.5 F 96 32 H 143/61 H 96 09/18/16 22:15 09/18/16 22:15 09/18/16 22:15 09/18/16 22:15 09/18/16 22:15 Interpretation: Hypertensive, Tachypneic - General General appearance: Alert In distress: None - HEENT Head: Normocephalic, Atraumatic Eyes: Normal Conjunctiva: Normal Extraocular movements intact: Yes Eyelashes: Normal Pupils: PERRL Neck: Other - Tracheostomy in place - Respiratory Respiratory status: No respiratory distress Chest status: Nontender Breath sounds: Productive cough, Other - Coarse breath sounds Chest palpation: Normal - Cardiovascular Rhythm: Regular Heart sounds: Normal auscultation - Abdominal Inspection: Morbidly Obese Bowel sounds: Normal Tenderness: Nontender - Back Back: Normal - Extremities General upper extremity: Normal inspection General lower extremity: Normal inspection - Neurological Neuro grossly intact: Yes Cognition: Normal Orientation: AAOx4 [place] Coma Scale Eye Opening: Spontaneous [place] Coma Scale Verbal: Oriented [place] Coma Scale Motor: Obeys Commands [place] Coma Scale Total: 15 - Psychological Associated symptoms: Normal affect, Normal mood - Skin Skin Temperature: Warm Skin Moisture: Dry Skin Color: Normal Course - Re-evaluation Re-evalutation: 09/19/16 00:54 Patient's tracheostomy was replaced without difficulty, she was given a breathing treatment, Vital signs are stable, she reports feeling much better and ready to go home, she was discharged with instructions for follow-up, patient acknowledges understanding and agreement with this plan Tracheostomy tube that was removed was discolored black - Vital Signs Vital signs: Temp Pulse Resp BP Pulse Ox 98.5 F 96 32 H 143/61 H 96 09/18/16 22:15 09/18/16 22:15 09/18/16 22:15 09/18/16 22:15 09/18/16 22:15 Procedures - Additional Procedures Tracheostomy Tube Replacement Time performed: 23:50 Notes: 09/19/16 00:57 Patient supplied her own tracheostomy tube which was replaced without difficulty Discharge - Discharge Clinical Impression: Tracheostomy complication Qualifiers: Tracheostomy complication: unspecified Qualified Code(s): J95.00 - Unspecified tracheostomy complication Condition: Stable Disposition: HOME, SELF-CARE Additional Instructions: Follow up with your primary care provider and regional director in one to 2 days. Return to the emergency room immediately if symptoms worsen or any additional concerns. Forms: Smoking Cessation Education
[2016-09-18] MEDS ORDERED: ALBUTEROL SULFATE 0.083% NEB 2.5 MG/3 ML AMPUL NEB ONE (23:31)
[2016-09-19 03:22] VITALS: BP 155/79
== END 2016-09-19 03:15 | disposition home or self-care (01) ==
LOC: ER 22:06
DX: J95.00 Unspecified tracheostomy complication (principal); R06.02 Shortness of breath; R05 Cough; F17.200 Nicotine dependence, unspecified, uncomplicated
CPT/HCPCS: 94640; 99284

== ENCOUNTER 2016-09-21 13:02 | Emergency (ER) | payer MEDICAID ==
[2016-09-21] MEDS ORDERED: IPRATROPIUM/ALBUTEROL 0.5-2.5 MG/3 ML AMPUL NEB ONE (13:37)
[2016-09-21] MEDS ORDERED: METHYLPREDNISOLONE INJ 125 MG/2 ML SDV IV ONE (13:37)
--- NOTE | 2016-09-21 13:56 | ER Document Report ---
ED Respiratory Problem - General Mode of Arrival: Medic Information source: Patient TRAVEL OUTSIDE OF THE [place] IN LAST 30 DAYS: No - HPI Patient complains to provider of: Short of breath Onset: This morning Duration: Continuous Context: Hx asthma, Hx CHF, Hx COPD, Smoker Associated symptoms: Difficulty breathing, Wheezing <ROSALBA NEGRETE - Last Filed: 09/21/16 13:48> <KEVIN MCNEIL - Last Filed: 09/21/16 17:55> - General Chief Complaint: Shortness Of Breath Stated Complaint: DIFFICULTY BREATHING Time Seen by Provider: 09/21/16 13:25 Notes: Patient is a 50-year-old female with a tracheostomy presenting to the emergency department with concerns of difficulty breathing and talking. Patient states that she thinks something is wrong with her trach. Patient was here recently on 09/12/2016 with an anxiety attack, and then the patient returned 09/19/2016 to have her tracheostomy tube replaced. Patient states that she attempted to suction her tube at home, but she is still having difficulty breathing. (ROSALBA NEGRETE) The patient is complaining that her trach needs to be changed. Was changed 2 days ago. Respiratory therapist came to evaluate the trach and said it was fine. Does have diffuse wheezes and rhonchi that improve with breathing treatments. The normal airflow through the trach. She claims that she cannot hardly talk, but her speech is quite clear when she puts her finger over the trach. Respiratory therapist did state that she needed a new [place] valve. Patient states she is not allowed to get a new valve until the first october. (KEVIN MCNEIL) - Related Data Allergies/Adverse Reactions: ziprasidone HCl [From Geodon] Allergy (Mild, Verified 05/04/16 13:03) itching acetaminophen [Acetaminophen] Adverse Reaction (Unknown, Verified 05/04/16 13:03 ) Past Medical History - General Information source: Patient - Social History Smoking Status: Current Every Day Smoker - states quit 2 days ago Family History: Reviewed & Not Pertinent, CAD, DM, Hypertension - Past Medical History Cardiac Medical History: Reports: Hx Atrial Fibrillation, Hx Congestive Heart Failure, Hx Coronary Artery Disease, Hx Hypercholesterolemia, Hx Hypertension, Hx Heart Murmur Pulmonary Medical History: Reports: Hx Asthma, Hx Bronchitis, Hx COPD, Hx Pneumonia, Hx Intubation, Hx Respiratory Failure, Hx Sleep Apnea, Other - Tracheostomy Endocrine Medical History: Reports: Hx Diabetes Mellitus Type 2 Renal/ Medical History: Reports: Hx Renal Insufficiency GI Medical History: Reports: Hx Gastroesophageal Reflux Disease, Hx Hiatal Hernia Musculoskeltal Medical History: Reports Hx Arthritis, Reports Hx Fibromyalgia Psychiatric Medical History: Reports: Hx Attention Deficit Hyperactivity Disorder, Hx Bipolar Disorder, Hx Depression Traumatic Medical History: Reports: Hx Fractures Infectious Medical History: Reports: Hx C-Diff, Hx MRSA Past Surgical History: Reports: Hx Appendectomy, Hx Tonsillectomy - Immunizations Hx Diphtheria, Pertussis, Tetanus Vaccination: Yes Hx Pneumococcal Vaccination: 05/06/09 <ROSALBA NEGRETE - Last Filed: 09/21/16 13:48> Review of Systems - Review of Systems Constitutional: No symptoms reported EENT: No symptoms reported Cardiovascular: No symptoms reported Respiratory: See HPI, Short of breath, Wheezing Gastrointestinal: No symptoms reported Genitourinary: No symptoms reported Female Genitourinary: No symptoms reported Musculoskeletal: No symptoms reported Skin: No symptoms reported Hematologic/Lymphatic: No symptoms reported Neurological/Psychological: No symptoms reported -: Yes All other systems reviewed and negative <ROSALBA NEGRETE - Last Filed: 09/21/16 13:48> Physical Exam - General General appearance: Alert - HEENT Head: Normocephalic, Atraumatic Eyes: Normal Pupils: PERRL - Respiratory Respiratory status: Tachypnea, Other - Tracheostomy Breath sounds: Wheezing - Diffuse inspiratory and expiratory wheezes - Cardiovascular Rhythm: Regular Heart sounds: Normal auscultation Murmur: No - Abdominal Inspection: Morbidly Obese Tenderness: Nontender - Back Back: Normal, Nontender - Extremities General upper extremity: Normal inspection, Nontender. No: Edema General lower extremity: Normal inspection, Nontender. No: Edema - Neurological Neuro grossly intact: Yes Cognition: Normal Orientation: AAOx4 [place] Coma Scale Eye Opening: Spontaneous [place] Coma Scale Verbal: Oriented [place] Coma Scale Motor: Obeys Commands [place] Coma Scale Total: 15 Speech: Normal - Psychological Associated symptoms: Normal affect, Normal mood - Skin Skin Temperature: Warm Skin Moisture: Dry Skin Color: Normal <ROSALBA NEGRETE - Last Filed: 09/21/16 13:48> Course <ROSALBA NEGRETE - Last Filed: 09/21/16 13:48> - Laboratory Result Diagrams: 09/21/16 14:00 09/21/16 14:00 - Diagnostic Test Radiology reviewed: Image reviewed, Reports reviewed - Chronic interstitial changes, no acute process <KEVIN MCNEIL - Last Filed: 09/21/16 17:55> - Re-evaluation Re-evalutation: 09/21/16 15:41 Patient was found to be sleeping. She states that the breathing is a little bit better after the DuoNeb. She still does have diffuse wheezes and rhonchi perhaps a little bit improved. (KEVIN MCNEIL) - Laboratory Laboratory results interpreted by me: 09/21/16 09/21/16 14:00 14:00 Hgb 11.3 L Hct 35.3 L MCH 26.5 L RDW 15.9 H Sodium 136.5 L Carbon Dioxide 35 H Anion Gap 4 L Albumin 3.4 L Discharge <ROSALBA NEGRETE - Last Filed: 09/21/16 13:48> <KEVIN MCNEIL - Last Filed: 09/21/16 17:55> - Discharge Clinical Impression: COPD with exacerbation, Malfunctioning Passy-[place] valve Condition: Stable Disposition: HOME, SELF-CARE Additional Instructions: Continue your regular medication Keep your tracheostomy suctioned out. Add the prednisone as prescribed, starting tomorrow. Follow-up with your primary care provider or your pulmonary medicine doctor if not improving. RETURN TO THE EMERGENCY ROOM IF ANY NEW OR WORSENING SYMPTOMS. Prescriptions: Prednisone [Deltasone 10 mg Tablet] 10 mg PO ASDIR PRN #21 tablet PRN Reason: Referrals: MARILYNN BAY PA-C [Primary Care Provider] - Follow up as needed Scribe Attestation: 09/21/16 17:55 I personally performed the services described in the documentation, reviewed and edited the documentation which was dictated to the scribe in my presence, and it accurately records my words and actions. (KEVIN MCNEIL) Scribe Documentation - Scribe Written by Vidhya:: Vidhya Chavis, 09/21/2016 1349 acting as scribe for :: Niki <ROSALBA NEGRETE - Last Filed: 09/21/16 13:48>
[2016-09-21 14:17] LABS: ABSOLUTE BASOPHILS # (AUTO) 0.1 10^3/uL (0.0-0.2); ABSOLUTE EOSINOPHILS # (AUTO) 0.1 10^3/uL (0.0-0.6); ABSOLUTE LYMPHOCYTES (AUTO) 1.5 10^3/uL (0.5-4.7); ABSOLUTE MONOCYTES (AUTO) 0.6 10^3/uL (0.1-1.4); ABSOLUTE NEUT (AUTO) 7.2 10^3/uL (1.7-8.2); BASOPHILS % (AUTO) 0.7 % (0-2); EOSINOPHILS % (AUTO) 0.9 % (0-6); HEMATOCRIT 35.3 % (36.0-47.0); HEMOGLOBIN 11.3 g/dL (12.0-15.5); HGB HCT DIFFERENCE -1.4; MEAN CORPUSCULAR HEMOGLOBIN 26.5 pg (27.0-33.4); MEAN CORPUSCULAR VOLUME 83 fl (80-97); MONOCYTES % (AUTO) 6.4 % (3-13); RED BLOOD COUNT 4.27 10^6/uL (3.72-5.28); RED CELL DISTRIBUTION WIDTH 15.9 % (11.5-14.0); WHITE BLOOD COUNT 9.5 10^3/uL (4.0-10.5)
[2016-09-21 14:33] LABS: ALANINE AMINOTRANSFERASE 31 U/L (9-52); ALBUMIN 3.4 g/dL (3.5-5.0); ALKALINE PHOSPHATASE 87 U/L (38-126); ASPARTATE AMINO TRANSFERASE 24 U/L (14-36); BILIRUBIN,DIRECT 0.4 mg/dL (0.0-0.4); BILIRUBIN,TOTAL 0.6 mg/dL (0.2-1.3); BLOOD UREA NITROGEN 13 mg/dL (7-20); CALCIUM 9.2 mg/dL (8.4-10.2); CARBON DIOXIDE 35 mmol/L (22-30); CHLORIDE 98 mmol/L (98-107); CREATININE RESULT 0.66 mg/dL (0.52-1.25); GLUCOSE 97 mg/dL (75-110); POTASSIUM 4.8 mmol/L (3.6-5.0); SODIUM 136.5 mmol/L (137-145); TOTAL PROTEIN 6.8 g/dL (6.3-8.2)
[2016-09-21 14:34] LABS: ANION GAP 4 (5-19)
--- NOTE | 2016-09-21 14:39 | RADIOLOGY REPORT (SQ) ---
EXAM DESCRIPTION: CHEST SINGLE VIEW COMPLETED DATE/TIME: 09/21/2016 2:25 pm REASON FOR STUDY: SOB, wheezing COMPARISON: 09/12/2016. EXAM PARAMETERS: NUMBER OF VIEWS: One view. TECHNIQUE: Single frontal radiographic view of the chest acquired. RADIATION DOSE: NA LIMITATIONS: None. FINDINGS: LUNGS AND PLEURA: Chronic interstitial changes. No no infiltrates, masses or pneumothorax . No pleural effusion. MEDIASTINUM AND HILAR STRUCTURES: No masses. Contour normal. HEART AND VASCULAR STRUCTURES: Heart upper limits of normal in size. Normal vasculature. BONES: No acute findings. HARDWARE: Tracheostomy tube. OTHER: No other significant finding. IMPRESSION: BORDERLINE CARDIOMEGALY. STABLE CHRONIC INTERSTITIAL CHANGES. NO ACUTE RADIOGRAPHIC FI NDING IN THE CHEST. TECHNICAL DOCUMENTATION: JOB ID: [id number]
[2016-09-21] MEDS ORDERED: ALBUTEROL SULFATE 0.083% NEB 2.5 MG/3 ML AMPUL NEB ONE ×2 (15:41)
[2016-09-21] MEDS ORDERED: LORAZEPAM INJ 2 MG/1 ML VIAL IV ONE (16:40)
[2016-09-21] MEDS ORDERED: PREDNISONE 20 MG TABLET PO ONE (17:15)
[2016-09-21 19:44] VITALS: BP 153/68
== END 2016-09-21 20:28 | disposition home or self-care (01) ==
LOC: ER 13:02
DX: J44.1 Chronic obstructive pulmonary disease with (acute) exacerbation (principal); J95.03 Malfunction of tracheostomy stoma; Y83.8 Other surgical procedures as the cause of abnormal reaction of the patient, or of later complication, without mention of misadventure at the time of the procedure; R06.02 Shortness of breath; I25.10 Atherosclerotic heart disease of native coronary artery without angina pectoris; I10 Essential (primary) hypertension; E11.9 Type 2 diabetes mellitus without complications; Z88.8 Allergy status to other drugs, medicaments and biological substances; Z87.891 Personal history of nicotine dependence; Z86.14 Personal history of Methicillin resistant Staphylococcus aureus infection
CPT/HCPCS: 94640 ×2; 99285; 96374; 96375; 36415; 85025; 80053; 71010; J2930; J2060; J7512; J7620

== ENCOUNTER 2016-10-13 14:33 | Emergency (ER) | payer MEDICAID ==
[2016-10-13] MEDS ORDERED: BUMETANIDE INJ/PF 1 MG/4 ML SDV IV ONE (15:03)
[2016-10-13 15:06] LABS: ABSOLUTE BASOPHILS # (AUTO) 0.2 10^3/uL (0.0-0.2); ABSOLUTE EOSINOPHILS # (AUTO) 0.1 10^3/uL (0.0-0.6); ABSOLUTE LYMPHOCYTES (AUTO) 1.8 10^3/uL (0.5-4.7); ABSOLUTE MONOCYTES (AUTO) 0.7 10^3/uL (0.1-1.4); ABSOLUTE NEUT (AUTO) 9.4 10^3/uL (1.7-8.2); BASOPHILS % (AUTO) 1.4 % (0-2); HEMATOCRIT 34.3 % (36.0-47.0); HEMOGLOBIN 10.9 g/dL (12.0-15.5); HGB HCT DIFFERENCE -1.6; LYMPHOCYTES % (AUTO) 14.5 % (13-45); MEAN CORPUSCULAR HEMOGLOBIN 26.6 pg (27.0-33.4); MEAN CORPUSCULAR HGB CONC 31.9 g/dL (32.0-36.0); MEAN CORPUSCULAR VOLUME 83 fl (80-97); MONOCYTES % (AUTO) 5.7 % (3-13); RED BLOOD COUNT 4.11 10^6/uL (3.72-5.28); RED CELL DISTRIBUTION WIDTH 15.7 % (11.5-14.0); SEGMENTED NEUTROPHILS % (AUTO) 77.4 % (42-78); WHITE BLOOD COUNT 12.2 10^3/uL (4.0-10.5)
[2016-10-13] MEDS ORDERED: KETOROLAC TROMETHAMINE INJ/PF 30 MG/1 ML SDV IV ONE (15:11)
[2016-10-13 15:21] LABS: ALANINE AMINOTRANSFERASE 29 U/L (9-52); ALBUMIN 3.2 g/dL (3.5-5.0); ALKALINE PHOSPHATASE 92 U/L (38-126); ANION GAP 6 (5-19); ASPARTATE AMINO TRANSFERASE 15 U/L (14-36); BILIRUBIN,DIRECT 0.4 mg/dL (0.0-0.4); BILIRUBIN,TOTAL 0.4 mg/dL (0.2-1.3); BLOOD UREA NITROGEN 21 mg/dL (7-20); CARBON DIOXIDE 35 mmol/L (22-30); CHLORIDE 96 mmol/L (98-107); CREATININE RESULT 0.73 mg/dL (0.52-1.25); GLUCOSE 103 mg/dL (75-110); LIPASE 136.1 U/L (23-300); POTASSIUM 4.4 mmol/L (3.6-5.0)
[2016-10-13 15:22] LABS: CREATINE KINASE < 20 U/L (30-135)
[2016-10-13 15:33] LABS: TROPONIN I < 0.012 ng/mL
--- NOTE | 2016-10-13 15:33 | RADIOLOGY REPORT (SQ) ---
EXAM DESCRIPTION: CHEST SINGLE VIEW COMPLETED DATE/TIME: 10/13/2016 3:18 pm REASON FOR STUDY: SOB COMPARISON: 09/21/2016. EXAM PARAMETERS: NUMBER OF VIEWS: One view. TECHNIQUE: Single frontal radiographic view of the chest acquired. RADIATION DOSE: NA LIMITATIONS: None. FINDINGS: LUNGS AND PLEURA: Prominent interstitial markings. No lobar infiltrates, masses or pneumo thorax. No pleural effusion. MEDIASTINUM AND HILAR STRUCTURES: No masses. Contour normal. HEART AND VASCULAR STRUCTURES: Mild cardiomegaly. BONES: No acute findings. HARDWARE: Tracheostomy tube. OTHER: No other significant finding. IMPRESSION: MILD CARDIOMEGALY. PROMINENT INTERSTITIAL MARKINGS APPEAR TO BE CHRONIC. CANNOT EXCLUD E MILD INTERSTITIAL EDEMA. TECHNICAL DOCUMENTATION: JOB ID: [id number]
--- NOTE | 2016-10-13 15:50 | ER Document Report ---
ED General - General Chief Complaint: Leg Swelling Stated Complaint: ABDOMINAL PAIN Time Seen by Provider: 10/13/16 14:39 Notes: The patient is a 50-year-old female, past medical history chronic respiratory failure trach, chronic lymphedema, chronic indwelling Ceja, presents with worsening swelling of her left leg over the past few days. She is taking 1 mg Bumex twice a day. She is also having a mild dry cough. Denies headache, numbness, tingling, nausea, vomiting, diarrhea, constipation, fevers, chest pain or rash. TRAVEL OUTSIDE OF THE [place] IN LAST 30 DAYS: No - Related Data Allergies/Adverse Reactions: ziprasidone HCl [From Geodon] Allergy (Mild, Verified 05/04/16 13:03) itching acetaminophen [Acetaminophen] Adverse Reaction (Unknown, Verified 05/04/16 13:03 ) Past Medical History - General Information source: Patient - Social History Smoking Status: Current Every Day Smoker Chew tobacco use (# tins/day): No Frequency of alcohol use: None Drug Abuse: None Family History: Reviewed & Not Pertinent, CAD, DM, Hypertension - Past Medical History Cardiac Medical History: Reports: Hx Atrial Fibrillation, Hx Congestive Heart Failure, Hx Coronary Artery Disease, Hx Hypercholesterolemia, Hx Hypertension, Hx Heart Murmur Pulmonary Medical History: Reports: Hx Asthma, Hx Bronchitis, Hx COPD, Hx Pneumonia, Hx Intubation, Hx Respiratory Failure, Hx Sleep Apnea Endocrine Medical History: Reports: Hx Diabetes Mellitus Type 2 Renal/ Medical History: Reports: Hx Renal Insufficiency GI Medical History: Reports: Hx Gastroesophageal Reflux Disease, Hx Hiatal Hernia Musculoskeltal Medical History: Reports Hx Arthritis, Reports Hx Fibromyalgia Psychiatric Medical History: Reports: Hx Attention Deficit Hyperactivity Disorder, Hx Bipolar Disorder, Hx Depression Traumatic Medical History: Reports: Hx Fractures Infectious Medical History: Reports: Hx C-Diff, Hx MRSA Past Surgical History: Reports: Hx Appendectomy, Hx Tonsillectomy - Immunizations Hx Diphtheria, Pertussis, Tetanus Vaccination: Yes Hx Pneumococcal Vaccination: 05/06/09 Review of Systems - Review of Systems Notes: REVIEW OF SYSTEMS: CONSTITUTIONAL: -fevers, -chills EENT: -eye pain, -difficulty swallowing, -nasal congestion CARDIOVASCULAR:-chest pain, -syncope. RESPIRATORY: +cough, -SOB GASTROINTESTINAL: -abdominal pain, - nausea, -vomiting, -diarrhea GENITOURINARY: -dysuria, -hematuria MUSCULOSKELETAL: -back pain, -neck pain, +LLE pain and swelling SKIN: -rash or skin lesions. HEMATOLOGIC: -easy bruising or bleeding. LYMPHATIC: -swollen, enlarged glands. NEUROLOGICAL: -altered mental status or loss of consciousness, -headache, - neurologic symptoms PSYCHIATRIC: -anxiety, -depression. ALL OTHER SYSTEMS REVIEWED AND NEGATIVE. Physical Exam - Vital signs Vitals: Resp 35 H 10/13/16 14:40 - Notes Notes: PHYSICAL EXAMINATION: GENERAL: Chronically ill-appearing HEAD: Atraumatic, normocephalic. EYES: Pupils equal round and reactive to light, extraocular movements intact, sclera anicteric, conjunctiva are normal. ENT: nares patent, oropharynx clear without exudates. Moist mucous membranes. NECK: Trach in place. Normal range of motion, supple without lymphadenopathy LUNGS: Mild bibasilar rhonchi, trach in place HEART: Regular rate and rhythm without murmurs ABDOMEN: Soft, nontender, normoactive bowel sounds. No guarding, no rebound. No masses appreciated. EXTREMITIES: Swelling and tenderness of left calf, 1+ pitting edema, normal range of motion. No cyanosis. NEUROLOGICAL: Cranial nerves grossly intact. Normal speech. Normal sensory and motor exams. PSYCH: Normal mood, normal affect. SKIN: Warm, Dry, normal turgor, no rashes or lesions noted. Course - Re-evaluation Re-evalutation: Patient appears well compared to her prior visit. Her chest x-ray shows mild pulmonary edema, but no infiltrate. She does not have a DVT on ultrasound. Her labs are unremarkable, other than a slight leukocytosis. No fever. She feels much better after IV Bumax and oxycodone. She is requesting a few oxycodone for her leg pain. Instructed her to continue her Bumex at home and follow-up with her primary care physician. Given strict return precautions and she understands. - Vital Signs Vital signs: Temp Pulse Resp BP Pulse Ox 20 96 10/13/16 16:00 10/13/16 16:00 - Laboratory Result Diagrams: 10/13/16 15:00 10/13/16 15:00 Laboratory results interpreted by me: 10/13/16 10/13/16 10/13/16 15:00 15:00 15:00 WBC 12.2 H Hgb 10.9 L Hct 34.3 L MCH 26.6 L MCHC 31.9 L RDW 15.7 H Absolute Neutrophils 9.4 H Chloride 96 L Carbon Dioxide 35 H BUN 21 H Creatine Kinase < 20 L NT-Pro-B Natriuret Pep 307 H Total Protein 6.0 L Albumin 3.2 L - Diagnostic Test Radiology reviewed: Image reviewed, Reports reviewed Radiology results interpreted by me: CXR: Cardiomegaly. Cannot rule-out superimprosed mild pulmonary edema. Discharge - Discharge Clinical Impression: Leg edema, left Condition: Stable Disposition: HOME, SELF-CARE Additional Instructions: Continue your Bumex. Follow-up with your care physician. Return to the ER if you have any worsening pain or symptoms. Edema, Peripheral You have swelling in your legs. This is called peripheral edema. It can be caused by "leaky capillaries," inflammation, disease of the leg veins, or excess salt and water in your body. Edema may be a sign of heart, kidney, or liver disease. A medical evaluation can determine if there is a serious underlying cause for your edema. Avoid prolonged standing. If you must sit for a long time, occasionally get up and walk around or elevate your legs. Support stockings can be helpful in limiting swelling. Often diuretic or water pills are used to remove excess salt and water from your body. Call the doctor or return if you develop increased swelling, pain, or redness, shortness of breath, chest pain, or any other significant change. Prescriptions: Oxycodone HCl [Oxycodone HCl 10 MG Tablet] 5 - 10 mg PO Q6H PRN #10 tablet PRN Reason: PAIN Referrals: MARILYNN BAY PA-C [Primary Care Provider] - Follow up as needed
[2016-10-13] MEDS ORDERED: OXYCODONE HCL IR 5 MG TABLET PO ONE (15:52)
[2016-10-13] MEDS ORDERED: OXYCODONE HCL SR 10 MG TABLET PO ONE (15:52)
[2016-10-13 17:55] VITALS: BP 150/67
--- NOTE | 2016-10-13 19:45 | XCELERA REPORT ---
[address] [address] Lower Extremity Venous Evaluation Name: NEENA ISLAS Age: 50 yrs Gender: Female : 1965 Patient Status: Emergency Patient Location: ER Study Date: 10/13/2016 04:19 PM Procedure: Color flow and duplex imaging of the veins of the left lower extremity as well as the right Common Femoral vein. Reason For Study: LLE swelling Ordering Physician: SUHAS DUMONT Performed By: Akosua Clemens Right Sided Venous Evaluation The right common femoral vein is fully compressible. Spontaneous and phasic flow is present in the right common femoral vein. Left Sided Venous Evaluation Normal vessel filling wall to wall, compression and augmentation as well as Colour flow down to the infrageniculate veins. Critical Findings Called in to the ER at about 1700. Interpretation Summary No duplex evidence of DVT or obstruction in the left lower extremity nor in the right Common Femoral vein. : SUHAS DUMONT > Parmjit Munson
== END 2016-10-13 20:10 | disposition home or self-care (01) ==
LOC: ER 14:33
DX: R60.9 Edema, unspecified (principal); I89.0 Lymphedema, not elsewhere classified; J96.10 Chronic respiratory failure, unspecified whether with hypoxia or hypercapnia; F17.200 Nicotine dependence, unspecified, uncomplicated; I48.91 Unspecified atrial fibrillation; I50.9 Heart failure, unspecified; I25.10 Atherosclerotic heart disease of native coronary artery without angina pectoris; I11.0 Hypertensive heart disease with heart failure; E78.00 Pure hypercholesterolemia, unspecified; J44.9 Chronic obstructive pulmonary disease, unspecified; E11.9 Type 2 diabetes mellitus without complications; K21.9 Gastro-esophageal reflux disease without esophagitis; Z93.0 Tracheostomy status; Z88.6 Allergy status to analgesic agent; Z86.14 Personal history of Methicillin resistant Staphylococcus aureus infection
CPT/HCPCS: 99284; 96374; 96375; 36415; 82550; 83690; 85025; 80053; 84484; 83605; 83880; 93971 ×2; 71010; J3490 ×3; J1885

== ENCOUNTER 2016-10-15 18:31 | Emergency (ER) | payer MEDICAID ==
[2016-10-15] MEDS ORDERED: ASPIRIN 81 MG TABLET, CHEWABLE PO ONE (19:00)
--- NOTE | 2016-10-15 19:00 | ER Document Report ---
ED General - General Chief Complaint: Abdominal Swelling Stated Complaint: ABDOMINAL PAIN/SWELLING Time Seen by Provider: 10/15/16 18:54 Mode of Arrival: Medic Information source: Patient, Emergency Med Personnel Notes: This is a 50-year-old woman with a history of COPD, morbid obesity, obesity hypoventilation syndrome status post tracheostomy, chronic lymphedema, CHF and tobacco abuse. The patient presents to the emergency room with shortness of breath, increased swelling of the abdomen and lower extremities. TRAVEL OUTSIDE OF THE [place] IN LAST 30 DAYS: No - HPI Onset: Last week Onset/Duration: Gradual Quality of pain: Dull Severity: Moderate Pain Level: 2 Associated symptoms: Shortness of breath. denies: Chills, Fever Exacerbated by: Denies Relieved by: Denies Similar symptoms previously: Yes Recently seen / treated by doctor: Yes - Related Data Allergies/Adverse Reactions: ziprasidone HCl [From Geodon] Allergy (Mild, Verified 05/04/16 13:03) itching acetaminophen [Acetaminophen] Adverse Reaction (Unknown, Verified 05/04/16 13:03 ) Past Medical History - General Information source: Patient - Social History Smoking Status: Current Every Day Smoker Cigarette use (# per day): Yes - 1 pack per day Chew tobacco use (# tins/day): No Frequency of alcohol use: None Drug Abuse: None Lives with: Friend Family History: Reviewed & Not Pertinent, CAD, DM, Hypertension - Past Medical History Cardiac Medical History: Reports: Hx Atrial Fibrillation, Hx Congestive Heart Failure, Hx Coronary Artery Disease, Hx Hypercholesterolemia, Hx Hypertension, Hx Heart Murmur Pulmonary Medical History: Reports: Hx Asthma, Hx Bronchitis, Hx COPD, Hx Pneumonia, Hx Intubation, Hx Respiratory Failure, Hx Sleep Apnea Endocrine Medical History: Reports: Hx Diabetes Mellitus Type 2 Renal/ Medical History: Reports: Hx Renal Insufficiency GI Medical History: Reports: Hx Gastroesophageal Reflux Disease, Hx Hiatal Hernia Musculoskeltal Medical History: Reports Hx Arthritis, Reports Hx Fibromyalgia Psychiatric Medical History: Reports: Hx Attention Deficit Hyperactivity Disorder, Hx Bipolar Disorder, Hx Depression Traumatic Medical History: Reports: Hx Fractures Infectious Medical History: Reports: Hx C-Diff, Hx MRSA Past Surgical History: Reports: Hx Appendectomy, Hx Tonsillectomy - Immunizations Hx Diphtheria, Pertussis, Tetanus Vaccination: Yes Hx Pneumococcal Vaccination: 05/06/09 Review of Systems - Review of Systems Constitutional: denies: Chills, Fever EENT: No symptoms reported Cardiovascular: No symptoms reported Respiratory: See HPI Gastrointestinal: No symptoms reported Genitourinary: No symptoms reported Female Genitourinary: No symptoms reported Musculoskeletal: See HPI Skin: No symptoms reported Hematologic/Lymphatic: No symptoms reported Neurological/Psychological: No symptoms reported Physical Exam - Vital signs Vitals: Temp Pulse Resp BP Pulse Ox 98.2 F 94 16 168/53 H 97 10/15/16 18:55 10/15/16 18:55 10/15/16 18:55 10/15/16 18:55 10/15/16 18:55 Notes: Physical exam: GENERAL: 50-year-old female, alert and oriented 3, HEAD: Atraumatic, normocephalic. EYES: Pupils equal round and reactive to light, extraocular movements intact, sclera anicteric, conjunctiva are normal. ENT: TMs normal, nares patent, oropharynx clear without exudates. Moist mucous membranes. NECK: Normal range of motion, supple with tracheostomy in place LUNGS: Wheezes bilaterally HEART: Regular rate and rhythm without murmurs, rubs or gallops. ABDOMEN: Soft, obese, normoactive bowel sounds. No tenderness to palpation. No guarding, no rebound. No masses appreciated. EXTREMITIES: Back lower extremity edema NEUROLOGICAL: Cranial nerves II through XII grossly intact. Normal speech, normal gait. PSYCH: Normal mood, normal affect. SKIN: Warm, Dry, normal turgor, no rashes or lesions noted. Course - Re-evaluation Re-evalutation: 10/15/16 22:28 Is comfortable at this time. And IV Lasix while here. I have encouraged her to continue current medicines and follow-up with her doctor. She does have a certain amount of neuropathy from the chronic lower extremity edema and I will give her some short-term pain medicines - Vital Signs Vital signs: Temp Pulse Resp BP Pulse Ox 98.2 F 94 33 H 128/64 H 96 10/15/16 18:55 10/15/16 18:55 10/15/16 21:31 10/15/16 21:31 10/15/16 21:31 - Laboratory Result Diagrams: 10/15/16 19:12 10/15/16 19:12 Laboratory results interpreted by me: 10/15/16 10/15/16 10/15/16 19:12 19:12 19:12 Hgb 10.9 L Hct 34.8 L MCH 26.5 L MCHC 31.2 L RDW 16.2 H Carbon Dioxide 36 H Anion Gap 4 L Creatine Kinase < 20 L NT-Pro-B Natriuret Pep 466 H Total Protein 5.6 L Albumin 3.0 L Urine Protein Urine Blood Urine Nitrite Ur Leukocyte Esterase 10/15/16 19:40 Hgb Hct MCH MCHC RDW Carbon Dioxide Anion Gap Creatine Kinase NT-Pro-B Natriuret Pep Total Protein Albumin Urine Protein 30 H Urine Blood MODERATE H Urine Nitrite POSITIVE H Ur Leukocyte Esterase LARGE H - Diagnostic Test Radiology reviewed: Image reviewed, Reports reviewed - Patient is no infiltrates - EKG Interpretation by Me Rate: Normal Rhythm: NSR - She has normal sinus rhythm with a ventricular rate of 94, no acute ST-T wave change Discharge - Discharge Clinical Impression: Chronic Lymphedema, Neuropathy Condition: Stable Disposition: HOME, SELF-CARE Instructions: Lymphedema ([facility]), Neuropathy ([facility]) Additional Instructions: Recommendations: Continue current medicines. Follow-up with your primary care doctor: Call the office tomorrow. Return to the emergency room for worsening shortness of breath, worsening swelling or any concerns or getting worse Prescriptions: Oxycodone HCl 5 mg PO Q6HP PRN #25 tablet PRN Reason: Referrals: KIM LATHAM MD [Primary Care Provider] - Follow up in 3-5 days
[2016-10-15] MEDS ORDERED: FUROSEMIDE INJ/PF 40 MG/4 ML SDV IV ONE (19:01)
[2016-10-15] MEDS ORDERED: IPRATROPIUM/ALBUTEROL 0.5-2.5 MG/3 ML AMPUL NEB ONE (19:02)
[2016-10-15 19:29] LABS: ABSOLUTE EOSINOPHILS # (AUTO) 0.1 10^3/uL (0.0-0.6); ABSOLUTE LYMPHOCYTES (AUTO) 1.6 10^3/uL (0.5-4.7); ABSOLUTE MONOCYTES (AUTO) 0.7 10^3/uL (0.1-1.4); ABSOLUTE NEUT (AUTO) 6.5 10^3/uL (1.7-8.2); BASOPHILS % (AUTO) 0.4 % (0-2); EOSINOPHILS % (AUTO) 1.1 % (0-6); HEMATOCRIT 34.8 % (36.0-47.0); HEMOGLOBIN 10.9 g/dL (12.0-15.5); HGB HCT DIFFERENCE -2.1; LYMPHOCYTES % (AUTO) 17.5 % (13-45); MEAN CORPUSCULAR HEMOGLOBIN 26.5 pg (27.0-33.4); MEAN CORPUSCULAR HGB CONC 31.2 g/dL (32.0-36.0); MEAN CORPUSCULAR VOLUME 85 fl (80-97); MONOCYTES % (AUTO) 7.7 % (3-13); RED CELL DISTRIBUTION WIDTH 16.2 % (11.5-14.0); SEGMENTED NEUTROPHILS % (AUTO) 73.3 % (42-78); WHITE BLOOD COUNT 8.9 10^3/uL (4.0-10.5)
--- NOTE | 2016-10-15 19:36 | RADIOLOGY REPORT (SQ) ---
EXAM DESCRIPTION: CHEST SINGLE VIEW COMPLETED DATE/TIME: 10/15/2016 7:27 pm REASON FOR STUDY: sob COMPARISON: 10/13/2016 EXAM PARAMETERS: NUMBER OF VIEWS: One view. TECHNIQUE: Single frontal radiographic view of the chest acquired. RADIATION DOSE: NA LIMITATIONS: None. FINDINGS: LUNGS AND PLEURA: No acute opacities, masses or pneumothorax. Similar interstitial markin gs. No pleural effusion. MEDIASTINUM AND HILAR STRUCTURES: Stable. HEART AND VASCULAR STRUCTURES: Stable. BONES: No acute findings. HARDWARE: Tracheostomy tube, stable. OTHER: No other significant finding. IMPRESSION: NO ACUTE RADIOGRAPHIC FINDING IN THE CHEST. TECHNICAL DOCUMENTATION: JOB ID: [id number]
[2016-10-15 19:45] LABS: ALANINE AMINOTRANSFERASE 26 U/L (9-52); ALKALINE PHOSPHATASE 102 U/L (38-126); ASPARTATE AMINO TRANSFERASE 15 U/L (14-36); BILIRUBIN,DIRECT 0.3 mg/dL (0.0-0.4); BILIRUBIN,TOTAL 0.3 mg/dL (0.2-1.3); BLOOD UREA NITROGEN 16 mg/dL (7-20); CALCIUM 8.7 mg/dL (8.4-10.2); CARBON DIOXIDE 36 mmol/L (22-30); CREATININE RESULT 0.67 mg/dL (0.52-1.25); GLUCOSE 101 mg/dL (75-110); POTASSIUM 4.3 mmol/L (3.6-5.0); TOTAL PROTEIN 5.6 g/dL (6.3-8.2)
[2016-10-15 19:47] LABS: CREATINE KINASE < 20 U/L (30-135)
[2016-10-15 19:54] LABS: CREATINE KINASE MB 0.35 ng/mL (<4.55)
[2016-10-15 19:58] LABS: CHLORIDE 98 mmol/L (98-107); SODIUM 138.1 mmol/L (137-145)
[2016-10-15 20:01] LABS: ANION GAP 4 (5-19)
[2016-10-15 20:08] LABS: APPEARANCE,URINE CLOUDY; BILIRUBIN,URINE NEGATIVE (NEGATIVE); GLUCOSE, URINE NEGATIVE (NEGATIVE); KETONES,URINE NEGATIVE (NEGATIVE); LEUKOCYTE ESTERASE,URINE LARGE (NEGATIVE); NITRITE,URINE POSITIVE (NEGATIVE); PROTEIN,URINE 30 mg/dL (NEGATIVE); URINE SPECIFIC GRAVITY 1.015; UROBILINOGEN,URINE NEGATIVE mg/dL (<2.0)
[2016-10-15] MEDS ORDERED: LORAZEPAM 1 MG TABLET PO ONE (22:03)
--- NOTE | 2016-10-15 22:15 | EKG REPORT ---
SEVERITY:- BORDERLINE ECG - SINUS RHYTHM BORDERLINE R WAVE PROGRESSION, ANTERIOR LEADS : Confirmed by: Christine Brown 15-Oct-2016 22:15:16
[2016-10-15] MEDS ORDERED: OXYCODONE HCL IR 5 MG TABLET PO ONE (22:25)
[2016-10-15 23:00] VITALS: BP 127/70
== END 2016-10-15 23:25 | disposition home or self-care (01) ==
LOC: ER 18:31
DX: I89.0 Lymphedema, not elsewhere classified (principal); E11.40 Type 2 diabetes mellitus with diabetic neuropathy, unspecified; J44.9 Chronic obstructive pulmonary disease, unspecified; E66.2 Morbid (severe) obesity with alveolar hypoventilation; Z93.0 Tracheostomy status; R06.02 Shortness of breath; F17.210 Nicotine dependence, cigarettes, uncomplicated; I25.10 Atherosclerotic heart disease of native coronary artery without angina pectoris; I10 Essential (primary) hypertension; Z86.14 Personal history of Methicillin resistant Staphylococcus aureus infection; Z88.8 Allergy status to other drugs, medicaments and biological substances
CPT/HCPCS: 93005; 94640; 99285; 96374; 36415; 82553; 82550; 85025; 80053; 81001; 83880; 71010; 93010; J1940; J3490; J7620

== ENCOUNTER 2016-10-18 21:12 | Inpatient (IN) | payer MEDICAID ==
[2016-10-18] MEDS ORDERED: IPRATROPIUM/ALBUTEROL 0.5-2.5 MG/3 ML AMPUL NEB ONE ×2 (21:33)
--- NOTE | 2016-10-18 21:37 | ER Document Report ---
ED General - General Stated Complaint: SHORTNESS OF BREATH Time Seen by Provider: 10/18/16 21:27 Notes: Patient is a 50-year-old female with a past medical history of morbid obesity, tracheostomy, and chronic lymphedema that comes emergency department for chief complaint of both shortness of breath and also increased abdominal swelling with redness to the lower abdominal wall and increased pain. She has a history of cellulitis of the abdominal wall. She states that she has been evaluated for this twice over the past week, states it continues to worsen. Patient also continues to smoke. Difficulty breathing with wheezing started today. Patient' s tracheostomy is not due to be changed for 6 months. Patient denies fever, vomiting, chest pain. TRAVEL OUTSIDE OF THE [place] IN LAST 30 DAYS: No - Related Data Allergies/Adverse Reactions: ziprasidone HCl [From Geodon] Allergy (Mild, Verified 05/04/16 13:03) itching acetaminophen [Acetaminophen] Adverse Reaction (Unknown, Verified 05/04/16 13:03 ) Past Medical History - General Information source: Patient - Social History Smoking Status: Current Every Day Smoker Smoking Education Provided: Yes - <3 min Frequency of alcohol use: None Drug Abuse: None Lives with: Family Family History: Reviewed & Not Pertinent, CAD, DM, Hypertension - Past Medical History Cardiac Medical History: Reports: Hx Atrial Fibrillation, Hx Congestive Heart Failure, Hx Coronary Artery Disease, Hx Hypercholesterolemia, Hx Hypertension, Hx Heart Murmur Pulmonary Medical History: Reports: Hx Asthma, Hx Bronchitis, Hx COPD, Hx Pneumonia, Hx Intubation, Hx Respiratory Failure, Hx Sleep Apnea Endocrine Medical History: Reports: Hx Diabetes Mellitus Type 2 Renal/ Medical History: Reports: Hx Renal Insufficiency GI Medical History: Reports: Hx Gastroesophageal Reflux Disease, Hx Hiatal Hernia Musculoskeltal Medical History: Reports Hx Arthritis, Reports Hx Fibromyalgia Psychiatric Medical History: Reports: Hx Attention Deficit Hyperactivity Disorder, Hx Bipolar Disorder, Hx Depression Traumatic Medical History: Reports: Hx Fractures Infectious Medical History: Reports: Hx C-Diff, Hx MRSA Past Surgical History: Reports: Hx Appendectomy, Hx Tonsillectomy - Immunizations Hx Diphtheria, Pertussis, Tetanus Vaccination: Yes Hx Pneumococcal Vaccination: 05/06/09 Review of Systems - Review of Systems Constitutional: No symptoms reported EENT: No symptoms reported Cardiovascular: See HPI Respiratory: See HPI Gastrointestinal: See HPI Genitourinary: No symptoms reported Female Genitourinary: No symptoms reported Musculoskeletal: No symptoms reported Skin: See HPI Hematologic/Lymphatic: No symptoms reported Neurological/Psychological: No symptoms reported Physical Exam - Vital signs Vitals: Pulse Ox 100 10/18/16 21:23 Interpretation: Normal - General General appearance: Alert, Anxious In distress: None - HEENT Head: Normocephalic, Atraumatic Eyes: Normal Conjunctiva: Normal Extraocular movements intact: Yes Eyelashes: Normal Pupils: PERRL Mucous membranes: Normal - Respiratory Respiratory status: No respiratory distress Breath sounds: Decreased air movement, Wheezing Chest palpation: Normal - Cardiovascular Rhythm: Regular, Tachycardia Heart sounds: Normal auscultation, S1 appreciated, S2 appreciated - Abdominal Inspection: Other - Lower abdomen with inflamed appearing tissue, erythema, a couple of areas of skin breakdown, no drainage, no induration or fluctuance noted Tenderness: Tender - generalized mild mid to lower abdominal tenderness; non- specific due to patient size - Back Back: Normal, Nontender - Extremities General upper extremity: Normal inspection, Nontender, Normal color, Normal ROM , Normal temperature General lower extremity: Normal inspection, Nontender, Normal color, Normal ROM , Normal temperature, Normal weight bearing. No: Greyson's sign - Neurological Neuro grossly intact: Yes Cognition: Normal Orientation: AAOx4 [place] Coma Scale Eye Opening: Spontaneous [place] Coma Scale Verbal: Oriented [place] Coma Scale Motor: Obeys Commands [place] Coma Scale Total: 15 Speech: Normal Motor strength normal: LUE, RUE, LLE, RLE Sensory: Normal - Psychological Associated symptoms: Normal affect, Normal mood - Skin Skin Temperature: Warm Skin Moisture: Dry Skin Color: Normal Course - Re-evaluation Re-evalutation: Patient given Solu-Medrol, duo nebs, initial wheezing and a mild tachypnea on examination resolved. Patient now complaining of no shortness of breath. She is improved in appearance. Patient does have what appears to be abdominal wall cellulitis of the lower abdomen in addition to chronic lymphedema which apparently is continuously worsening. Patient has had this problem before. Patient does have some leukocytosis, no fever. No bandemia. Chemistry generally unremarkable. Chest x-ray nonspecific, says pulmonary vascular congestion although patient now has no shortness of breath, difficult to appreciate any rales on examination. Concerned because of chronically worsening lymphedema with secondary cellulitis. Discussed with Dr. Brown. Discussed with Dr. Frances, patient will be admitted to the hospital. - Vital Signs Vital signs: Temp Pulse Resp BP Pulse Ox 97.4 F 110 H 32 H 158/71 H 93 10/19/16 03:50 10/19/16 03:53 10/19/16 03:50 10/19/16 03:50 10/19/16 03:50 - Laboratory Result Diagrams: 10/18/16 22:06 10/18/16 22:06 Laboratory results interpreted by me: 10/18/16 10/18/16 10/18/16 22:06 22:06 22:06 WBC 10.9 H Hgb 11.2 L Hct 35.7 L MCH 26.6 L MCHC 31.4 L RDW 15.8 H Seg Neutrophils % 78.8 H Absolute Neutrophils 8.6 H Chloride 97 L Carbon Dioxide 36 H Anion Gap 4 L BUN 22 H Glucose 119 H Albumin 3.4 L Urine Protein 100 H Urine Blood MODERATE H Urine Nitrite POSITIVE H Ur Leukocyte Esterase LARGE H Discharge - Discharge Clinical Impression: Abdominal wall cellulitis, Lymphedema, COPD exacerbation, Wheezing, Tobacco abuse Urinary tract infection Qualifiers: Urinary tract infection type: acute cystitis Hematuria presence: without hematuria Qualified Code(s): N30.00 - Acute cystitis without hematuria Morbid obesity Qualifiers: Obesity type: unspecified obesity type Qualified Code(s): E66.01 - Morbid ( severe) obesity due to excess calories Condition: Stable Disposition: ADMITTED INPATIENT Admitting Provider: Hospitalist Unit Admitted: [facility]
[2016-10-18] MEDS ORDERED: LORAZEPAM 0.5 MG TABLET PO ONE (22:29)
[2016-10-18 22:31] LABS: ABSOLUTE BASOPHILS # (AUTO) 0.1 10^3/uL (0.0-0.2); ABSOLUTE EOSINOPHILS # (AUTO) 0.1 10^3/uL (0.0-0.6); ABSOLUTE LYMPHOCYTES (AUTO) 1.5 10^3/uL (0.5-4.7); ABSOLUTE MONOCYTES (AUTO) 0.6 10^3/uL (0.1-1.4); ABSOLUTE NEUT (AUTO) 8.6 10^3/uL (1.7-8.2); BASOPHILS % (AUTO) 0.9 % (0-2); EOSINOPHILS % (AUTO) 1.3 % (0-6); HEMATOCRIT 35.7 % (36.0-47.0); HEMOGLOBIN 11.2 g/dL (12.0-15.5); HGB HCT DIFFERENCE -2.1; LYMPHOCYTES % (AUTO) 13.9 % (13-45); MEAN CORPUSCULAR HEMOGLOBIN 26.6 pg (27.0-33.4); MEAN CORPUSCULAR HGB CONC 31.4 g/dL (32.0-36.0); MEAN CORPUSCULAR VOLUME 85 fl (80-97); MONOCYTES % (AUTO) 5.1 % (3-13); RED BLOOD COUNT 4.22 10^6/uL (3.72-5.28); RED CELL DISTRIBUTION WIDTH 15.8 % (11.5-14.0); SEGMENTED NEUTROPHILS % (AUTO) 78.8 % (42-78); WHITE BLOOD COUNT 10.9 10^3/uL (4.0-10.5)
--- NOTE | 2016-10-18 22:45 | RADIOLOGY REPORT (SQ) ---
EXAM DESCRIPTION: CHEST SINGLE VIEW COMPLETED DATE/TIME: 10/18/2016 10:05 pm REASON FOR STUDY: shortness of breath COMPARISON: Chest films 02/16/2016, 09/12/2016, 10/13/2016, 10/15/2016 EXAM PARAMETERS: NUMBER OF VIEWS: One view. TECHNIQUE: Single frontal radiographic view of the chest acquired. RADIATION DOSE: NA LIMITATIONS: None. FINDINGS: LUNGS AND PLEURA: Pulmonary vascular prominence is present with mild alveolar and intersti tial edema. No gross pleural effusions or pneumothorax. MEDIASTINUM AND HILAR STRUCTURES: No masses. Contour normal. HEART AND VASCULAR STRUCTURES: Moderate to marked cardiomegaly. BONES: No acute findings. HARDWARE: Tracheostomy tube tip midtrachea OTHER: No other significant finding. IMPRESSION: Pulmonary vascular congestion with mild alveolar and interstitial edema. Cardiomegaly. Tracheostomy tube in good positioning. TECHNICAL DOCUMENTATION: JOB ID: [id number]
[2016-10-18 22:48] LABS: ALANINE AMINOTRANSFERASE 22 U/L (9-52); ALBUMIN 3.4 g/dL (3.5-5.0); ALKALINE PHOSPHATASE 104 U/L (38-126); ASPARTATE AMINO TRANSFERASE 36 U/L (14-36); BILIRUBIN,DIRECT 0.3 mg/dL (0.0-0.4); BILIRUBIN,TOTAL 0.5 mg/dL (0.2-1.3); BLOOD UREA NITROGEN 22 mg/dL (7-20); CARBON DIOXIDE 36 mmol/L (22-30); CHLORIDE 97 mmol/L (98-107); CREATININE RESULT 0.74 mg/dL (0.52-1.25); GLUCOSE 119 mg/dL (75-110); POTASSIUM 4.4 mmol/L (3.6-5.0); TOTAL PROTEIN 6.7 g/dL (6.3-8.2)
[2016-10-18 22:55] LABS: SODIUM 137.1 mmol/L (137-145)
[2016-10-18 22:57] LABS: ANION GAP 4 (5-19)
[2016-10-18] MEDS ORDERED: FUROSEMIDE INJ/PF 40 MG/4 ML SDV IV ONE (22:57)
[2016-10-18 23:50] LABS: APPEARANCE,URINE TURBID; BILIRUBIN,URINE NEGATIVE (NEGATIVE); GLUCOSE, URINE NEGATIVE (NEGATIVE); KETONES,URINE NEGATIVE (NEGATIVE); LEUKOCYTE ESTERASE,URINE LARGE (NEGATIVE); NITRITE,URINE POSITIVE (NEGATIVE); PROTEIN,URINE 100 mg/dL (NEGATIVE); URINE SPECIFIC GRAVITY 1.019; UROBILINOGEN,URINE NEGATIVE mg/dL (<2.0)
[2016-10-19] MEDS ORDERED: CEFTRIAXONE 1 GM/D5W RTU 50 ML IV ONE (00:22)
[2016-10-19] MEDS ORDERED: VANCOMYCIN HCL INJ 1000 MG VIAL IV ONE (00:23)
[2016-10-19] MEDS ORDERED: MAGNESIUM HYDROXIDE SUSP 30 ML UDCUP PO PRN (08:14)
[2016-10-19] MEDS ORDERED: DEXTROSE 50%-WATER 25 GM/50 ML DISP.SYRIN IV PRN ×2 (08:18)
[2016-10-19] MEDS ORDERED: INSULIN LISPRO 100 UNIT/ML 3 ML VIAL SUBCUT PRN (08:18)
[2016-10-19] MEDS ORDERED: GLUCAGON,HUMAN RECOMB 1 MG INJ IM PRN (08:18)
[2016-10-19] MEDS ORDERED: DEXTROSE 40% GEL 15 GM TUBE PO PRN ×2 (08:18)
[2016-10-19] MEDS ORDERED: PROMETHAZINE HCL 25 MG TABLET PO PRN (08:25)
[2016-10-19] MEDS ORDERED: VANCOMYCIN HCL 0 MG in DEXTROSE 5%-WATER 250 ML IV NR (08:30)
[2016-10-19] MEDS: ALBUTEROL SULFATE 0.083% NEB 2.5 MG/3 ML AMPUL NEB PRN ×2 (09:10→16:03)
[2016-10-19] MEDS ORDERED: NICOTINE 7 MG/24 HR PATCH.TD24 TD PRN (09:42)
[2016-10-19 09:43] LABS: HEMATOCRIT 38.4 % (36.0-47.0); HEMOGLOBIN 12.3 g/dL (12.0-15.5); HGB HCT DIFFERENCE -1.5; MEAN CORPUSCULAR HEMOGLOBIN 26.3 pg (27.0-33.4); MEAN CORPUSCULAR VOLUME 82 fl (80-97); RED BLOOD COUNT 4.68 10^6/uL (3.72-5.28); RED CELL DISTRIBUTION WIDTH 15.8 % (11.5-14.0); WHITE BLOOD COUNT 10.6 10^3/uL (4.0-10.5)
[2016-10-19] MEDS: DOCUSATE SODIUM 100 MG CAPSULE PO SCH ×2 (09:45→19:56)
--- NOTE | 2016-10-19 09:46 | PDOC H&P ---
History of Present Illness Admission Date/PCP: 10/19/16 01:16 MARILYNN BAY PA-C Patient complains of: pain, redness abd wall History of Present Illness: NEENA ISLAS is a 50 year old morbidly obese female, well-known to the hospitalist service for multiple admissions due to combination of issues, including panniculitis, chronic urinary tract infection due to chronic indwelling Ceja catheter, along with COPD exacerbation. She presents to the emergency room for shortness of breath but primarily increased redness to the lower aspect of her abdominal wall panniculus, with associated increased pain. This reportedly is her third ER visit over the past week for same. Despite treatment, pain and redness continue to worsen. Slight increase in her chronic shortness of breath with wheezing over the last 24 hours. Has a chronic indwelling tracheostomy, which is changed every 6 months. 6 L oxygen per nasal cannula 23/11. Chronic indwelling Ceja is changed on a monthly basis. Denies fever or chills, vomiting or chest pain. Also complains of intermittent panic attacks. Patient has been discussed with emergency room nurse practitioner who evaluated the patient, and who also stated that patient was having some mild to moderate wheezing and shortness of breath upon arrival, but the wheezing basically resolved with a single DuoNeb treatment. Hospitalized on our service December 15- of last year with discharge diagnoses including acute on chronic diastolic congestive heart failure, abdominal wall cellulitis/panniculitis, and complicated urinary tract infection, with ESBL E. coli and Proteus mirabilis. History and physical and discharge summary have been reviewed. Laboratory results are listed in [facility] and are reviewed. X-ray summary results are listed below, with full report(s) reviewed. . EKG reviewed. Social history/personal habits: . Lives with family. Quarter pack of cigarettes per day. No alcohol or illicit drug use. Allergies/adverse reactions are listed in [facility] and are reviewed. Home medications initially autopopulated into [facility] may not accurately reflect patient's true medications, dosages, and/or frequencies. senior mechanical technician to reconcile medications. Unfortunately, patient not certain of all medications/dosages/frequencies. REVIEW OF SYSTEMS: Constitutional: No fever or chills. Eyes: Wears glasses. ENT: No swallowing problems or complaints. Denies hearing loss. Pulmonary: See history and present illness. Cardiovascular: No current complaints, including chest pain. Gastrointestinal: No current complaints, including nausea or vomiting. Skin: See history and present illness. Hematologic: Easy bruising. Neurologic: Slight numbness and tingling of feet.. Musculoskeletal: Joint pain from arthritis, along with fibromyalgia. Psychiatric: Anxiety and depression. Denies suicidal or homicidal ideation. Occasional panic attacks. Endocrine: No current complaints, including polyuria. Genitourinary: No current complaints, including dysuria. PHYSICAL EXAMINATION: 5 feet 7 inches tall. 156.4 kg. BMI of 54 kg/m.Temperature 97.4. Pulse 108 and regular. Blood pressure 147/66. Respirations are 28 and unlabored. 93% saturation with trach collar at 7 L/min. Morbidly obese chronically ill-appearing female who appears a number of years older than her stated age. Pleasant awake alert and cooperative. Rather anxious at times, although no malorie agitation. Female floor nurse Alana is present. Skin is warm and dry. No grossly obvious evidence of rash in areas of skin examined. No subcutaneous nodules palpated. ENT: Hearing grossly normal to normal conversation. Tongue midline on protrusion pink and slightly tacky. Eyes: No scleral icterus. Pupils equal and reactive to light at 4 mm. [place] conjunctivae. Neck is supple and nontender to gentle active range of motion and palpation. Midline trachea. No palpable thyroid nodule mass enlargement or tenderness. Lymphatic: No palpable cervical or clavicular nodes. Neck and lymphatic exams limited by patient body habitus. Exam also limited by trach collar with attaching straps. Able to talk with trach. Psychiatric: Reasonable insight into acute and chronic medical issues. Oriented to time location and why here. Lungs: Auscultation reveals equal breath sounds bilaterally. No use of accessory respiratory muscles. Occasional very brief faint expiratory wheezing bilaterally. Cardiovascular: Heart regular rate and rhythm, without gallop murmur or rub. No carotid or abdominal aortic bruits. No ankle or pedal edema. Palpable dorsalis pedis pulses. Abdomen:soft quite obese with positive bowel sounds. Unable to adequately evaluate abdomen for masses or organomegaly due to body habitus. What is immediately apparent upon examining the patient is her quite prominent panniculus, which hangs well below her waist. The lower third of this panniculus exhibits skin with mild inflammation warmth and tenderness, without crepitus or expressible discharge. Extremities: Feet are warm and dry. No calf tenderness to compression. No grossly obvious visual evidence of calf swelling. Gentle manipulation of lower extremities fails to reveal any obvious evidence of injury or instability to knees hips or ankles. Neurologic: Moves all 4 extremities grossly normally. Moves from seated to standing to supine positions without undue difficulty. Patellar reflexes absent. Absent Babinski. Light touch slightly decreased at feet. Dorsiflexion and plantarflexion of feet 5 / 5 and symmetric. Past Medical History Cardiac Medical History: Reports: Atrial Fibrillation, Congestive Heart Failure , Coronary Artery Disease, Hyperlipidema, Hypertension, Heart Murmur Denies: DVT, Pulmonary Embolism Pulmonary Medical History: Reports: Asthma, Bronchitis, Chronic Obstructive Pulmonary Disease (COPD), Intubation, Pneumonia, Respiratory Failure, Sleep Apnea EENT Medical History: Reports: Eyes - Glasses Denies: Ears, Throat Neurological Medical History: Denies: Hemorrhagic CVA, Ischemic CVA, Seizures Endocrine Medical History: Reports: Diabetes Mellitus Type 2 Denies: Diabetes Mellitus Type 1, Hyperthyroidism, Hypothyroidism Renal/ Medical History: Reports: Other - Recurrent urinary tract infection. GI Medical History: Reports: Gastroesophageal Reflux Disease, Hiatal Hernia Denies: Cirrhosis, Hepatitis, Peptic Ulcer Disease Musculoskeltal Medical History: Reports: Arthritis, Fibromyalgia Skin Medical History: Reports: Other - Recurrent abdominal wall panniculitis. Psychiatric Medical History: Reports: Attention Deficit Hyperactivity Disorder, Bipolar Disorder, Depression, General Anxiety Disorder - Occasional panic attacks., Tobacco Dependency Denies: Alcohol Dependency, Substance Abuse Hematology: Reports: Other - Easy bruising Infectious Medical History: Reports: Clostridium Difficile, Methicillin- Resistant Staph Aureus Denies: Hepatitis B, Hepatitis C Past Surgical History Past Surgical History: Reports: Appendectomy, Tonsillectomy, Other - Permanent tracheostomy Social History Information Source: Patient, Emergency Med Personnel, [facility] Records Lives with: Family Smoking Status: Current Every Day Smoker Number of Years Smokin Last Time Smoked: yesterday Frequency of Alcohol Use: None Hx Recreational Drug Use: No Drugs: None Hx Prescription Drug Abuse: No - Advance Directive Resuscitation Status: Full Code Surrogate healthcare decision maker:: Her brother Zoran Albert Family History Family History: Reviewed & Not Pertinent, CAD, DM, Hypertension Parental Family History Reviewed: Yes Children Family History Reviewed: Yes Sibling(s) Family History Reviewed.: Yes Medication/Allergy Home Medications: RX: Albuterol Sulfate [Proair HFA] 2 puff IH Q6HP PRN 10/19/16 RX: Albuterol Sulfate [Ventolin 0.083% Neb 2.5 mg/3 mL Ampul] 2.5 mg NEB RTQ4HP PRN 10/19/16 RX: Amlodipine Besylate [Norvasc 5 mg Tablet] 5 mg PO Q12 10/19/16 RX: Bumetanide [Bumex 1 mg Tablet] 1 mg PO Q12 10/19/16 RX: Gabapentin [Neurontin 300 mg Capsule] 300 mg PO Q12 10/19/16 RX: Lorazepam [Ativan 0.5 mg Tablet] 0.5 mg PO Q12HP PRN 10/19/16 RX: Lurasidone HCl [Latuda] 60 mg PO Q12 10/19/16 RX: Metformin HCl [Glucophage] 1,000 mg PO BIDBS 10/19/16 RX: Metoprolol Succinate [Toprol Xl 50 mg Tab.sr] 50 mg PO DAILY 10/19/16 RX: Nystatin [Mycostatin Cream 15 gm] 1 applic TOP Q12 10/19/16 RX: Nystatin [Mycostatin Topical Powder 15 gm] 1 applic TOP Q12 10/19/16 RX: Omeprazole 40 mg PO DAILY 10/19/16 RX: Sucralfate [Carafate 1 gm Tablet] 1 gm PO ACHS 10/19/16 RX: Trazodone HCl [Desyrel] 100 mg PO HSP PRN 10/19/16 RX: Docusate Sodium [Colace 100 mg Capsule] 100 mg PO BID #60 capsule 10/22/16 RX: Levofloxacin [Levaquin 750 mg Tablet] 750 mg PO DAILY #10 tablet 10/22/16 RX: Prednisone [Deltasone 20 mg Tablet] 40 mg PO DAILY #20 tablet 10/22/16 Allergies/Adverse Reactions: ziprasidone HCl [From Geodon] Allergy (Mild, Verified 05/04/16 13:03) itching acetaminophen [Acetaminophen] Adverse Reaction (Unknown, Verified 05/04/16 13:03 ) Physical Exam Vital Signs: Temp Pulse Resp BP Pulse Ox 97.9 F 106 H 20 148/70 H 97 10/19/16 07:35 10/19/16 07:35 10/19/16 07:35 10/19/16 07:35 10/19/16 07:35 Intake & Output 10/18/16 10/19/16 10/20/16 00:59 00:59 00:59 Intake Total 400 Output Total 3600 Balance -3200 Weight 156.4 kg Results Impressions: Chest X-Ray 10/18/16 21:34 IMPRESSION: Pulmonary vascular congestion with mild alveolar and interstitial edema. Cardiomegaly. Tracheostomy tube in good positioning. Assessment & Plan - Diagnosis (1) Panniculitis Is this a current diagnosis for this admission?: YesPlan: Rocephin and intravenous vancomycin. Pharmacy to assist with dosing. I have strongly encouraged patient to be careful getting out of bed without notifying staff, to avoid a fall with injury. Knee high SCDs for DVT prophylaxis, along with subcutaneous heparin. Impression and plans were discussed with patient who concurs. Time spent in evaluation and management of patient: 65 minutes. (2) Urinary tract infection Qualifiers: Urinary tract infection type: catheter-associated UTI Indwelling urinary catheter type: indwelling urethral catheter Encounter type: initial encounter Qualified Code(s): T83.511A - Infection and inflammatory reaction due to indwelling urethral catheter, initial encounter; N39.0 - Urinary tract infection, site not specified Is this a current diagnosis for this admission?: YesPlan: Prior culture results noted. (3) COPD (chronic obstructive pulmonary disease) Qualifiers: COPD type: unspecified COPD Qualified Code(s): J44.9 - Chronic obstructive pulmonary disease, unspecified Is this a current diagnosis for this admission?: YesPlan: Resume home medications as appropriate once these have been determined and reviewed. (4) Tobacco abuse Is this a current diagnosis for this admission?: YesPlan: As needed nicotine patch. (5) Tracheostomy dependence Is this a current diagnosis for this admission?: Yes - Inpatient Certification Based on my medical assessment, after consideration of the patient's comorbidities, presenting symptoms, or acuity I expect that the services needed warrant INPATIENT care.: Yes I certify that my determination is in accordance with my understanding of Medicare's requirements for reasonable and necessary INPATIENT services [42 CFR 412.3e].: Yes Medical Necessity: Significant Comorbidiites Make Outpatient Treatment Too Risky , Need for Nebulizer Therapy and Monitoring of Response, Need for IV Antibiotics , Risk of Complication if Not Cared For in Hospital Post Hospital Care: D/C or Transfer Summary
[2016-10-19 09:53] LABS: ANION GAP 7 (5-19); BLOOD UREA NITROGEN 22 mg/dL (7-20); CALCIUM 9.6 mg/dL (8.4-10.2); CARBON DIOXIDE 35 mmol/L (22-30); CHLORIDE 94 mmol/L (98-107); CREATININE RESULT 0.74 mg/dL (0.52-1.25); GLUCOSE 149 mg/dL (75-110); MAGNESIUM 2.1 mg/dL (1.6-2.3); POTASSIUM 4.4 mmol/L (3.6-5.0); SODIUM 136.2 mmol/L (137-145)
[2016-10-19 10:02] LABS: BASOPHILS % (MANUAL) 0 % (0-2); EOSINOPHILS % (MANUAL) 0 % (0-6); LYMPHOCYTES % (MANUAL) 10 % (13-45); TOTAL CELLS COUNTED 100
[2016-10-19 10:03] LABS: ANISOCYTOSIS SLIGHT; TOXIC GRANULATION 1+
--- NOTE | 2016-10-19 10:19 | EKG REPORT ---
SEVERITY:- OTHERWISE NORMAL ECG - SINUS TACHYCARDIA : Confirmed by: Elenita Ramos MD 19-Oct-2016 10:18:49
[2016-10-19] MEDS: LORAZEPAM INJ 2 MG/1 ML VIAL IV PRN ×2 (11:12→20:26)
[2016-10-19] MEDS ORDERED: BUMETANIDE INJ/PF 1 MG/4 ML SDV IV ONE (11:30)
[2016-10-19] MEDS: OXYCODONE HCL IR 5 MG TABLET PO PRN ×2 (12:30→20:12)
[2016-10-19] MEDS: IPRATROPIUM/ALBUTEROL 0.5-2.5 MG/3 ML AMPUL NEB SCH ×2 (13:13→20:25)
[2016-10-19] MEDS: HEPARIN SOD (PORCINE) 5,000 UNIT/ML 1 ML SYRINGE SUBCUT SCH ×2 (13:22→22:39)
[2016-10-19] MEDS: VANCOMYCIN HCL 1,000 MG in DEXTROSE 5%-WATER 250 ML IV SCH (13:22)
--- NOTE | 2016-10-19 14:02 | PDOC PROGRESS REPORT ---
Subjective Progress Note for:: 10/19/16 Subjective:: Patient has been noting mild cough and some shortness of breath. She complains of anxiety and somatic pain and would like her regular medicines resumed. She denies fever, chills, chest pain. Physical Exam Vital Signs: Temp Pulse Resp BP Pulse Ox 98.3 F 112 H 23 H 155/77 H 93 10/19/16 11:19 10/19/16 11:19 10/19/16 11:19 10/19/16 11:10/19/16 11:42 Intake & Output 10/18/16 10/19/16 10/20/16 06:59 06:59 06:59 Weight 156.4 kg GENERAL: No acute distress, morbidly obese HEENT: Conjunctiva clear, nonicteric, moist mucous membranes, no JVD, tracheostomy noted RESPIRATORY: Clear to auscultation bilaterally, no wheezes, no rhonchi CARDIAC: Regular rate and rhythm, no murmurs/gallops/rubs ABDOMEN: Soft, nondistended, nontender, positive bowel sounds, no rebound, no guarding EXTREMETIES: 1+ bilateral lower extremity edema NEUROLOGIC: Alert, oriented to person/place/time, CN's grossly intact, no focal deficits SKIN: Large abdominal pannus with erythema PSYCH: Normal mood, normal affect Results Laboratory Results: 10/19/16 09:22 10/19/16 09:22 10/19/16 10/19/16 09:22 09:22 WBC 10.6 H RBC 4.68 Hgb 12.3 Hct 38.4 MCV 82 MCH 26.3 L MCHC 32.0 RDW 15.8 H Plt Count 229 Seg Neutrophils % Not Reportable Lymphocytes % Not Reportable Monocytes % Not Reportable Eosinophils % Not Reportable Basophils % Not Reportable Absolute Neutrophils Not Reportable Absolute Lymphocytes Not Reportable Absolute Monocytes Not Reportable Absolute Eosinophils Not Reportable Absolute Basophils Not Reportable Sodium 136.2 L Potassium 4.4 Chloride 94 L Carbon Dioxide 35 H Anion Gap 7 BUN 22 H Creatinine 0.74 Est GFR ( Amer) > 60 Est GFR (Non-Af Amer) > 60 Glucose 149 H Calcium 9.6 Magnesium 2.1 Impressions: Chest X-Ray 10/18/16 21:34 IMPRESSION: Pulmonary vascular congestion with mild alveolar and interstitial edema. Cardiomegaly. Tracheostomy tube in good positioning. Assessment & Plan - Diagnosis (1) Acute and chronic respiratory failure ([id number]) Qualifiers: Respiratory failure complication: hypoxia and hypercapnia Qualified Code(s): J96.21 - Acute and chronic respiratory failure with hypoxia Is this a current diagnosis for this admission?: YesPlan: Continue oxygen supplementation via aerosol trach collar. (2) Acute CHF (congestive heart failure) Qualifiers: Congestive heart failure type: unspecified congestive heart failure type Qualified Code(s): I50.9 - Heart failure, unspecified Is this a current diagnosis for this admission?: YesPlan: Patient has acutely decompensated CHF secondary to diastolic dysfunction. Start IV Bumex. Toprol-XL 50 mg daily. Monitor intake and output. (3) Lymphedema Is this a current diagnosis for this admission?: Yes (4) Panniculitis Is this a current diagnosis for this admission?: YesPlan: Continue IV ceftriaxone and IV vancomycin. (5) Anxiety Is this a current diagnosis for this admission?: Yes (6) Morbid obesity with body mass index of 50.0-59.9 in adult Is this a current diagnosis for this admission?: Yes - Time Time Spent with patient: 35 or more minutes
[2016-10-19] MEDS ORDERED: METOPROLOL SUCCINATE 50 MG TAB.SR.24H PO ONE (15:00)
[2016-10-19] MEDS ORDERED: BUMETANIDE INJ/PF 1 MG/4 ML SDV IV SCH (22:00)
[2016-10-19] MEDS: CEFTRIAXONE 1 GM/D5W RTU 1 GM/50 ML RTUPB IV SCH (22:35)
[2016-10-20] MEDS: OXYCODONE HCL IR 5 MG TABLET PO PRN (02:17)
[2016-10-20] MEDS: LORAZEPAM INJ 2 MG/1 ML VIAL IV PRN (04:26)
[2016-10-20] MEDS: VANCOMYCIN HCL 1,000 MG in DEXTROSE 5%-WATER 250 ML IV SCH ×4 (05:22→18:16)
[2016-10-20] MEDS: HEPARIN SOD (PORCINE) 5,000 UNIT/ML 1 ML SYRINGE SUBCUT SCH ×3 (05:23→21:31)
[2016-10-20 07:12] LABS: ABSOLUTE BASOPHILS # (AUTO) 0.1 10^3/uL (0.0-0.2); ABSOLUTE EOSINOPHILS # (AUTO) 0.1 10^3/uL (0.0-0.6); ABSOLUTE LYMPHOCYTES (AUTO) 1.5 10^3/uL (0.5-4.7); ABSOLUTE MONOCYTES (AUTO) 0.7 10^3/uL (0.1-1.4); ABSOLUTE NEUT (AUTO) 10.4 10^3/uL (1.7-8.2); BASOPHILS % (AUTO) 0.8 % (0-2); EOSINOPHILS % (AUTO) 0.4 % (0-6); HEMATOCRIT 37.4 % (36.0-47.0); HEMOGLOBIN 11.5 g/dL (12.0-15.5); HGB HCT DIFFERENCE -2.9; LYMPHOCYTES % (AUTO) 11.9 % (13-45); MEAN CORPUSCULAR HGB CONC 30.9 g/dL (32.0-36.0); MEAN CORPUSCULAR VOLUME 84 fl (80-97); MONOCYTES % (AUTO) 5.6 % (3-13); RED BLOOD COUNT 4.43 10^6/uL (3.72-5.28); SEGMENTED NEUTROPHILS % (AUTO) 81.3 % (42-78); WHITE BLOOD COUNT 12.8 10^3/uL (4.0-10.5)
[2016-10-20 07:31] LABS: ANION GAP 7 (5-19); BLOOD UREA NITROGEN 32 mg/dL (7-20); CALCIUM 9.5 mg/dL (8.4-10.2); CARBON DIOXIDE 35 mmol/L (22-30); CHLORIDE 94 mmol/L (98-107); GLUCOSE 109 mg/dL (75-110); POTASSIUM 4.5 mmol/L (3.6-5.0); SODIUM 136.1 mmol/L (137-145)
[2016-10-20] MEDS ORDERED: MAGNESIUM HYDROXIDE SUSP 30 ML UDCUP PO PRN (07:31)
[2016-10-20] MEDS ORDERED: (PENDING PHARMACY ID) (Trazodone Hcl [Desyrel] 100 MG) PO PRN (07:31)
[2016-10-20] MEDS ORDERED: ALBUTEROL SULFATE HFA (90 MCG/PUFF) 8 GM MDI (1 MDI/ER DISP) IH PRN (07:31)
[2016-10-20] MEDS ORDERED: ALBUTEROL SULFATE HFA (90 MCG/PUFF) 200 PUFF/8.5 GM MDI IH PRN (07:54)
[2016-10-20] MEDS: IPRATROPIUM/ALBUTEROL 0.5-2.5 MG/3 ML AMPUL NEB SCH ×3 (08:30→20:03)
[2016-10-20] MEDS ORDERED: LANSOPRAZOLE 30 MG TAB.RAP.DR PO ONE (08:30)
[2016-10-20] MEDS: SUCRALFATE 1 GM TABLET PO SCH ×4 (09:06→21:31)
[2016-10-20] MEDS: METOPROLOL SUCCINATE 50 MG TAB.SR.24H PO SCH (09:07)
[2016-10-20] MEDS: AMLODIPINE BESYLATE 5 MG TABLET PO SCH ×2 (09:08→21:31)
[2016-10-20] MEDS: METFORMIN HCL 500 MG TABLET PO SCH ×2 (09:08→16:32)
[2016-10-20] MEDS: GABAPENTIN 300 MG CAPSULE PO SCH ×2 (09:09→21:30)
[2016-10-20] MEDS: BUMETANIDE INJ/PF 1 MG/4 ML SDV IV SCH ×2 (09:10→18:16)
[2016-10-20] MEDS: NYSTATIN CREAM 15 GM TOP SCH (09:10)
[2016-10-20] MEDS: NYSTATIN TOPICAL POWDER 15 GM TOP SCH (09:11)
[2016-10-20] MEDS ORDERED: (PENDING PHARMACY ID) (Lurasidone Hcl [Latuda] 60 MG) PO SCH (10:00)
[2016-10-20] MEDS: DOCUSATE SODIUM 100 MG CAPSULE PO SCH ×2 (10:39→18:43)
[2016-10-20] MEDS ORDERED: PREDNISONE 20 MG TABLET PO SCH (13:45)
--- NOTE | 2016-10-20 16:20 | PDOC PROGRESS REPORT ---
Subjective Progress Note for:: 10/20/16 Subjective:: Patient has no new complaints today. She reports her pannus is improving. Patient does report yellow phlegm per trach. Denies fever, chills, chest pain, nausea, vomiting, diarrhea, constipation, new onset weakness. Physical Exam Vital Signs: Temp Pulse Resp BP Pulse Ox 97.4 F 70 20 122/43 L 98 10/20/16 04:57 10/20/16 04:57 10/20/16 04:57 10/20/16 03:26 10/20/16 04:57 Intake & Output 10/19/16 10/20/16 10/21/16 06:59 06:59 06:59 Intake Total 495 Output Total 1300 Balance -805 Weight 156.4 kg Exam: GENERAL: No acute distress, morbidly obese HEENT: Conjunctiva clear, nonicteric, moist mucous membranes, no JVD, tracheostomy noted RESPIRATORY: Expiratory phase, prolonged; scattered rhonchi CARDIAC: Regular rate and rhythm, no murmurs/gallops/rubs--limited by body habitus ABDOMEN: Soft, nondistended, nontender, positive bowel sounds, no rebound, no guarding EXTREMETIES: 1+ bilateral lower extremity edema NEUROLOGIC: Alert, oriented to person/place/time, CN's grossly intact, no focal deficits SKIN: Large abdominal pannus without erythema PSYCH: Normal mood, normal affect Results Laboratory Results: 10/20/16 07:00 10/19/16 10/19/16 10/20/16 09:22 09:22 07:00 WBC 10.6 H 12.8 H RBC 4.68 4.43 Hgb 12.3 11.5 L Hct 38.4 37.4 MCV 82 84 MCH 26.3 L 26.0 L MCHC 32.0 30.9 L RDW 15.8 H 16.0 H Plt Count 229 224 Seg Neutrophils % Not Reportable 81.3 H Lymphocytes % Not Reportable 11.9 L Monocytes % Not Reportable 5.6 Eosinophils % Not Reportable 0.4 Basophils % Not Reportable 0.8 Absolute Neutrophils Not Reportable 10.4 H Absolute Lymphocytes Not Reportable 1.5 Absolute Monocytes Not Reportable 0.7 Absolute Eosinophils Not Reportable 0.1 Absolute Basophils Not Reportable 0.1 Sodium 136.2 L Potassium 4.4 Chloride 94 L Carbon Dioxide 35 H Anion Gap 7 BUN 22 H Creatinine 0.74 Est GFR ( Amer) > 60 Est GFR (Non-Af Amer) > 60 Glucose 149 H Calcium 9.6 Magnesium 2.1 Impressions: Chest X-Ray 10/18/16 21:34 IMPRESSION: Pulmonary vascular congestion with mild alveolar and interstitial edema. Cardiomegaly. Tracheostomy tube in good positioning. Assessment & Plan - Diagnosis (1) Acute CHF (congestive heart failure) Qualifiers: Congestive heart failure type: diastolic Qualified Code(s): I50.31 - Acute diastolic (congestive) heart failure Is this a current diagnosis for this admission?: YesPlan: Volume overloaded. Has a previous history of diastolic heart failure. I do not see an echo for more than 3 years. I will repeat her echo at this time. Patient is currently on Bumex, metoprolol. No CLAUDIA/ARB as last known EF>40%. (2) Abdominal wall cellulitis Is this a current diagnosis for this admission?: YesPlan: Is currently on Rocephin and vancomycin. She is improving on this clinically. Patient does have 1 set of blood cultures that are growing out gram-positive cocci, but do not discount that this could be a contaminant. (3) COPD exacerbation Is this a current diagnosis for this admission?: YesPlan: Continue scheduled nebulized treatments and place patient on prednisone 30 mg p.o. twice daily. (4) Lymphedema Is this a current diagnosis for this admission?: Yes (5) Panniculitis Is this a current diagnosis for this admission?: YesPlan: Continue patient with IV antibiotics. Have also placed nystatin powder and cream as needed. (6) Urinary tract infection Qualifiers: Urinary tract infection type: catheter-associated UTI Indwelling urinary catheter type: indwelling urethral catheter Encounter type: initial encounter Qualified Code(s): T83.511A - Infection and inflammatory reaction due to indwelling urethral catheter, initial encounter; N39.0 - Urinary tract infection, site not specified Is this a current diagnosis for this admission?: YesPlan: Chronic indwelling Ceja catheter. Currently growing gram-negative rods on Rocephin. Monitor for culture. (7) Acute and chronic respiratory failure ([id number]) Qualifiers: Respiratory failure complication: hypoxia and hypercapnia Qualified Code(s): J96.21 - Acute and chronic respiratory failure with hypoxia Is this a current diagnosis for this admission?: YesPlan: Patient has not had her home ventilator here. She has been asked to the providers from home. (8) Anemia Qualifiers: Anemia type: unspecified type Qualified Code(s): D64.9 - Anemia, unspecified (11) Anxiety Is this a current diagnosis for this admission?: YesPlan: Ativan oral as needed (12) Morbid obesity with body mass index of 50.0-59.9 in adult Is this a current diagnosis for this admission?: Yes (13) Tracheostomy dependence Is this a current diagnosis for this admission?: Yes - Time Time Spent with patient: 25-34 minutes Medications reviewed and adjusted accordingly: Yes Anticipated discharge: Home with Homehealth
[2016-10-20] MEDS ORDERED: IBUPROFEN 600 MG TABLET PO PRN (16:42)
[2016-10-20] MEDS: LORAZEPAM 0.5 MG TABLET PO PRN (16:51)
[2016-10-20] MEDS: PREDNISONE 20 MG TABLET PO SCH (18:00)
[2016-10-20] MEDS: LACTOBACILLUS ACIDOPHILUS 250 MG TAB PO SCH (18:00)
[2016-10-20] MEDS: GUAIFENESIN 600 MG TABLET.SA PO SCH (21:30)
[2016-10-20] MEDS: CEFTRIAXONE 1 GM/D5W RTU 1 GM/50 ML RTUPB IV SCH (21:34)
[2016-10-20] MEDS ORDERED: TRAZODONE HCL 50 MG TABLET PO PRN (22:00)
[2016-10-21] MEDS: NYSTATIN CREAM 15 GM TOP SCH ×3 (04:46→22:17)
[2016-10-21] MEDS: NYSTATIN TOPICAL POWDER 15 GM TOP SCH ×3 (04:46→22:17)
[2016-10-21] MEDS: VANCOMYCIN HCL 1,000 MG in DEXTROSE 5%-WATER 250 ML IV SCH ×2 (05:32→17:50)
[2016-10-21] MEDS ORDERED: LANSOPRAZOLE 30 MG TAB.RAP.DR PO SCH (06:00)
[2016-10-21 06:45] LABS: ABSOLUTE BASOPHILS # (AUTO) 0.1 10^3/uL (0.0-0.2); ABSOLUTE MONOCYTES (AUTO) 0.4 10^3/uL (0.1-1.4); ABSOLUTE NEUT (AUTO) 9.4 10^3/uL (1.7-8.2); BASOPHILS % (AUTO) 0.5 % (0-2); EOSINOPHILS % (AUTO) 0.1 % (0-6); HEMATOCRIT 35.1 % (36.0-47.0); HEMOGLOBIN 11.3 g/dL (12.0-15.5); HGB HCT DIFFERENCE -1.2; LYMPHOCYTES % (AUTO) 9.2 % (13-45); MEAN CORPUSCULAR HEMOGLOBIN 26.5 pg (27.0-33.4); MEAN CORPUSCULAR HGB CONC 32.2 g/dL (32.0-36.0); MEAN CORPUSCULAR VOLUME 82 fl (80-97); MONOCYTES % (AUTO) 3.3 % (3-13); RED BLOOD COUNT 4.27 10^6/uL (3.72-5.28); RED CELL DISTRIBUTION WIDTH 15.8 % (11.5-14.0); SEGMENTED NEUTROPHILS % (AUTO) 86.9 % (42-78); WHITE BLOOD COUNT 10.9 10^3/uL (4.0-10.5)
[2016-10-21] MEDS: HEPARIN SOD (PORCINE) 5,000 UNIT/ML 1 ML SYRINGE SUBCUT SCH ×3 (06:45→22:11)
[2016-10-21] MEDS: LANSOPRAZOLE 30 MG TAB.RAP.DR PO SCH (06:45)
[2016-10-21] MEDS: LORAZEPAM 0.5 MG TABLET PO PRN ×2 (06:50→17:46)
[2016-10-21 07:08] LABS: ANION GAP 7 (5-19); BLOOD UREA NITROGEN 37 mg/dL (7-20); CALCIUM 9.4 mg/dL (8.4-10.2); CARBON DIOXIDE 37 mmol/L (22-30); CHLORIDE 93 mmol/L (98-107); CREATININE RESULT 0.92 mg/dL (0.52-1.25); GLUCOSE 117 mg/dL (75-110); MAGNESIUM 2.2 mg/dL (1.6-2.3); POTASSIUM 4.8 mmol/L (3.6-5.0); SODIUM 136.7 mmol/L (137-145)
[2016-10-21] MEDS: IPRATROPIUM/ALBUTEROL 0.5-2.5 MG/3 ML AMPUL NEB SCH ×3 (09:03→20:35)
[2016-10-21] MEDS: SUCRALFATE 1 GM TABLET PO SCH ×4 (09:31→22:11)
[2016-10-21] MEDS: PREDNISONE 20 MG TABLET PO SCH (09:31)
[2016-10-21] MEDS: METFORMIN HCL 500 MG TABLET PO SCH ×2 (09:31→17:47)
[2016-10-21] MEDS: AMLODIPINE BESYLATE 5 MG TABLET PO SCH ×2 (09:32→22:11)
[2016-10-21] MEDS: GABAPENTIN 300 MG CAPSULE PO SCH ×2 (09:32→22:11)
[2016-10-21] MEDS: LACTOBACILLUS ACIDOPHILUS 250 MG TAB PO SCH ×2 (09:32→17:48)
[2016-10-21] MEDS: METOPROLOL SUCCINATE 50 MG TAB.SR.24H PO SCH (09:33)
[2016-10-21] MEDS: GUAIFENESIN 600 MG TABLET.SA PO SCH ×2 (09:33→22:11)
[2016-10-21] MEDS: BUMETANIDE INJ/PF 1 MG/4 ML SDV IV SCH ×2 (09:34→17:50)
[2016-10-21] MEDS: DOCUSATE SODIUM 100 MG CAPSULE PO SCH ×2 (09:39→17:47)
[2016-10-21] MEDS: TRAMADOL HCL 50 MG TABLET PO PRN ×2 (14:11→20:23)
[2016-10-21] MEDS ORDERED: PREDNISONE 20 MG TABLET PO SCH (18:00)
[2016-10-21 18:18] LABS: CREATININE RESULT 0.95 mg/dL (0.52-1.25)
--- NOTE | 2016-10-21 19:23 | PDOC PROGRESS REPORT ---
Subjective Progress Note for:: 10/21/16 Subjective:: Patient has no new complaints today. She reports her pannus is improving. Denies fever, chills, chest pain, nausea, vomiting, diarrhea, constipation, new onset weakness. Physical Exam Vital Signs: Temp Pulse Resp BP Pulse Ox 98.0 F 71 18 114/51 L 96 10/21/16 04:24 10/21/16 04:24 10/21/16 04:24 10/21/16 04:24 10/21/16 04:24 Intake & Output 10/20/16 10/21/16 10/22/16 06:59 06:59 06:59 Intake Total 1870 2042 Output Total 1949 5400 Balance -80 -3357 Weight 156.4 kg Exam: GENERAL: No acute distress, morbidly obese HEENT: Conjunctiva clear, nonicteric, moist mucous membranes, no JVD, tracheostomy noted RESPIRATORY: Expiratory phase, prolonged; otherwise clear CARDIAC: Regular rate and rhythm, no murmurs/gallops/rubs--limited by body habitus ABDOMEN: Soft, nondistended, nontender, positive bowel sounds, no rebound, no guarding EXTREMETIES: 1+ bilateral lower extremity edema NEUROLOGIC: Alert, oriented to person/place/time, CN's grossly intact, no focal deficits SKIN: Large abdominal pannus without erythema PSYCH: Normal mood, normal affect Results Laboratory Results: 10/21/16 05:48 10/21/16 05:48 10/20/16 10/21/16 10/21/16 07:00 05:48 05:48 WBC 10.9 H RBC 4.27 Hgb 11.3 L Hct 35.1 L MCV 82 MCH 26.5 L MCHC 32.2 RDW 15.8 H Plt Count 212 Seg Neutrophils % 86.9 H Lymphocytes % 9.2 L Monocytes % 3.3 Eosinophils % 0.1 Basophils % 0.5 Absolute Neutrophils 9.4 H Absolute Lymphocytes 1.0 Absolute Monocytes 0.4 Absolute Eosinophils 0.0 Absolute Basophils 0.1 Sodium 136.1 L 136.7 L Potassium 4.5 4.8 Chloride 94 L 93 L Carbon Dioxide 35 H 37 H Anion Gap 7 7 BUN 32 H 37 H Creatinine 0.80 0.92 Est GFR ( Amer) > 60 > 60 Est GFR (Non-Af Amer) > 60 > 60 Glucose 109 117 H Calcium 9.5 9.4 Magnesium 2.2 Impressions: Chest X-Ray 10/18/16 21:34 IMPRESSION: Pulmonary vascular congestion with mild alveolar and interstitial edema. Cardiomegaly. Tracheostomy tube in good positioning. Assessment & Plan - Diagnosis (1) Acute CHF (congestive heart failure) Qualifiers: Congestive heart failure type: diastolic Qualified Code(s): I50.31 - Acute diastolic (congestive) heart failure Is this a current diagnosis for this admission?: YesPlan: Volume overloaded. Has a previous history of diastolic heart failure. Pending repeat echo. Patient is currently on Bumex, metoprolol. No CLAUDIA/ARB as last known EF>40%. (2) Abdominal wall cellulitis Is this a current diagnosis for this admission?: YesPlan: Is currently on Rocephin and vancomycin. She is improving on this clinically. Patient does have 1 set of blood cultures that are growing out gram-positive cocci, but do not discount that this could be a contaminant. (3) COPD exacerbation Is this a current diagnosis for this admission?: YesPlan: Continue scheduled nebulized treatments and place patient on prednisone 20 mg p.o. twice daily. (4) Lymphedema Is this a current diagnosis for this admission?: Yes (5) Panniculitis Is this a current diagnosis for this admission?: Yes (6) Urinary tract infection Qualifiers: Urinary tract infection type: catheter-associated UTI Indwelling urinary catheter type: indwelling urethral catheter Encounter type: initial encounter Qualified Code(s): T83.511A - Infection and inflammatory reaction due to indwelling urethral catheter, initial encounter; N39.0 - Urinary tract infection, site not specified Is this a current diagnosis for this admission?: YesPlan: Pansensitive E.Coli (7) Acute and chronic respiratory failure ([id number]) Qualifiers: Respiratory failure complication: hypoxia and hypercapnia Qualified Code(s): J96.21 - Acute and chronic respiratory failure with hypoxia Is this a current diagnosis for this admission?: YesPlan: Ventilator settings for tonight. (8) Anemia Qualifiers: Anemia type: unspecified type Qualified Code(s): D64.9 - Anemia, unspecified (11) Anxiety Is this a current diagnosis for this admission?: Yes (12) Morbid obesity with body mass index of 50.0-59.9 in adult Is this a current diagnosis for this admission?: Yes (13) Tracheostomy dependence Is this a current diagnosis for this admission?: Yes - Time Time Spent with patient: 25-34 minutes Medications reviewed and adjusted accordingly: Yes Anticipated discharge: Home with Homehealth Within: within 48 hours
[2016-10-21] MEDS: CEFTRIAXONE 1 GM/D5W RTU 1 GM/50 ML RTUPB IV SCH (22:11)
[2016-10-22] MEDS: TRAMADOL HCL 50 MG TABLET PO PRN (02:31)
[2016-10-22] MEDS: LORAZEPAM 0.5 MG TABLET PO PRN (05:12)
[2016-10-22] MEDS: LANSOPRAZOLE 30 MG TAB.RAP.DR PO SCH (05:12)
[2016-10-22] MEDS: HEPARIN SOD (PORCINE) 5,000 UNIT/ML 1 ML SYRINGE SUBCUT SCH ×2 (05:13→15:07)
[2016-10-22 06:16] LABS: ABSOLUTE BASOPHILS # (AUTO) 0.1 10^3/uL (0.0-0.2); ABSOLUTE LYMPHOCYTES (AUTO) 0.6 10^3/uL (0.5-4.7); ABSOLUTE MONOCYTES (AUTO) 0.2 10^3/uL (0.1-1.4); ABSOLUTE NEUT (AUTO) 10.1 10^3/uL (1.7-8.2); BASOPHILS % (AUTO) 0.7 % (0-2); HEMATOCRIT 36.4 % (36.0-47.0); HEMOGLOBIN 11.7 g/dL (12.0-15.5); HGB HCT DIFFERENCE -1.3; LYMPHOCYTES % (AUTO) 5.3 % (13-45); MEAN CORPUSCULAR HEMOGLOBIN 26.7 pg (27.0-33.4); MEAN CORPUSCULAR HGB CONC 32.1 g/dL (32.0-36.0); MEAN CORPUSCULAR VOLUME 83 fl (80-97); MONOCYTES % (AUTO) 1.9 % (3-13); RED BLOOD COUNT 4.37 10^6/uL (3.72-5.28); RED CELL DISTRIBUTION WIDTH 15.6 % (11.5-14.0); SEGMENTED NEUTROPHILS % (AUTO) 92.1 % (42-78)
[2016-10-22 06:31] LABS: ANION GAP 11 (5-19); BLOOD UREA NITROGEN 35 mg/dL (7-20); CALCIUM 9.4 mg/dL (8.4-10.2); CARBON DIOXIDE 33 mmol/L (22-30); CHLORIDE 92 mmol/L (98-107); CREATININE RESULT 0.92 mg/dL (0.52-1.25); GLUCOSE 171 mg/dL (75-110); POTASSIUM 4.3 mmol/L (3.6-5.0); SODIUM 135.9 mmol/L (137-145)
[2016-10-22] MEDS ORDERED: MAGNESIUM HYDROXIDE SUSP 30 ML UDCUP PO PRN (07:09)
[2016-10-22] MEDS: IPRATROPIUM/ALBUTEROL 0.5-2.5 MG/3 ML AMPUL NEB SCH ×2 (08:40→14:09)
[2016-10-22] MEDS: METFORMIN HCL 500 MG TABLET PO SCH ×2 (08:42→18:25)
[2016-10-22] MEDS: SUCRALFATE 1 GM TABLET PO SCH ×3 (08:42→15:07)
--- NOTE | 2016-10-22 09:01 | XCELERA REPORT ---
[address] [address] Transthoracic Echocardiogram Report Name: NEENA ISLAS Age: 50 yrs Gender: Female : 1965 Patient Status: Inpatient Patient Location: [id number]\S\335\S\A Study Date: 10/21/2016 02:13 PM Height: 67 in Weight: 344 lb BSA: 2.5 m2 Procedure: A complete two-dimensional transthoracic echocardiogram was performed (2D, M-mode, spectral and color flow Doppler). The study was technically difficult with many images being suboptimal in quality. Reason For Study: chf Ordering Physician: FLORINDA GRIDER Performed By: Yemi Munroe Interpretation Summary The left ventricular ejection fraction is normal. There is mild concentric left ventricular hypertrophy. The left ventricle is grossly normal size. Wall motion cannot be accurately commented on, but no definite regional wall motion abnormalities noted. The right ventricle is mildly dilated. The right ventricular systolic function is normal. The right atrium is borderline dilated. The left atrium is moderately dilated. A patent foramen ovale is suspected. There is a mild amount of mitral regurgitation There is no mitral valve stenosis. There is no aortic valve stenosis No aortic regurgitation is present. There is a mild amount of tricuspid regurgitation There is mild to moderate pulmonary hypertension by echo Right ventricular systolic pressure is estimated to be elevated at 40- 50mmHg. The aortic root is not well visualized but is probably normal size. The inferior vena cava was not visualized Minimal pericardial effusion. MMode/2D Measurements \T\ Calculations RVDd: 3.8 cm LVIDd: 5.4 cm FS: 36.3 % Ao root diam: 2.7 cm IVSd: 1.3 cm LVIDs: 3.4 cm EDV(Teich): 139.4 ml LVPWd: 1.2 cm ESV(Teich): 48.1 ml Ao root area: 5.6 cm2 EF(Teich): 65.5 % LA dimension: 4.6 cm Doppler Measurements \T\ Calculations MV E max leeann: MV P1/2t max leeann: Ao V2 max: LV V1 max P.4 cm/sec 80.1 cm/sec 172.7 cm/sec 2.7 mmHg MV A max leeann: MV P1/2t: 50.1 msec Ao max PG: LV V1 max: 63.7 cm/sec 11.9 mmHg 82.4 cm/sec MV E/A: 1.2 MVA(P1/2t): 4.4 cm2 MV dec slope: 468.4 cm/sec2 PA V2 max: TR max leeann: RAP systole: 105.6 cm/sec 282.7 cm/sec 10.0 mmHg PA max PG: TR max P.0 mmHg 4.5 mmHg RVSP(TR): 42.0 mmHg Left Ventricle The left ventricle is grossly normal size. There is mild concentric left ventricular hypertrophy. The left ventricular ejection fraction is normal. Doppler measurements suggest pseudonormalized left ventricular relaxation, which is associated with grade II/IV or mild to moderate diastolic dysfunction. Wall motion cannot be accurately commented on, but no definite regional wall motion abnormalities noted. Right Ventricle The right ventricle is mildly dilated. There is normal right ventricular wall thickness. The right ventricular systolic function is normal. Atria The right atrium is borderline dilated. The left atrium is moderately dilated. A patent foramen ovale is suspected. Mitral Valve There is mild mitral annular calcification. There is no mitral valve stenosis. There is a mild amount of mitral regurgitation. Aortic Valve The aortic valve is grossly normal. There is no aortic valve stenosis. No aortic regurgitation is present. Tricuspid Valve The tricuspid valve is not well visualized, but is grossly normal. There is no tricuspid stenosis. There is a mild amount of tricuspid regurgitation. There is mild to moderate pulmonary hypertension by echo. Right ventricular systolic pressure is estimated to be elevated at 40-50mmHg. Pulmonic Valve The pulmonic valve is not well visualized. Great Vessels The aortic root is not well visualized but is probably normal size. The inferior vena cava was not visualized. Effusions Minimal pericardial effusion. : FLORINDA GRIDER > Christine Brown
[2016-10-22 12:31] VITALS: BP 137/56
[2016-10-22] MEDS: LACTOBACILLUS ACIDOPHILUS 250 MG TAB PO SCH ×2 (12:44→18:25)
[2016-10-22] MEDS: GABAPENTIN 300 MG CAPSULE PO SCH (12:44)
[2016-10-22] MEDS: METOPROLOL SUCCINATE 50 MG TAB.SR.24H PO SCH (12:45)
[2016-10-22] MEDS: AMLODIPINE BESYLATE 5 MG TABLET PO SCH (12:45)
[2016-10-22] MEDS: GUAIFENESIN 600 MG TABLET.SA PO SCH (12:46)
[2016-10-22] MEDS: NYSTATIN TOPICAL POWDER 15 GM TOP SCH (12:48)
[2016-10-22] MEDS: NYSTATIN CREAM 15 GM TOP SCH (12:49)
[2016-10-22] MEDS: DOCUSATE SODIUM 100 MG CAPSULE PO SCH ×2 (12:49→18:27)
[2016-10-22] MEDS ORDERED: LEVOFLOXACIN 750 MG TABLET PO ONE (13:00)
[2016-10-22] MEDS ORDERED: PREDNISONE 20 MG TABLET PO SCH (18:00)
[2016-10-22] MEDS ORDERED: BUMETANIDE 1 MG TABLET PO SCH (18:00)
--- NOTE | 2016-10-22 18:44 | PDOC DISCHARGE SUMMARY ---
General - Admit/Disc Date/PCP Admission Date/Primary Care Provider: 10/19/16 08:16 MARILYNN BAY PA-C Discharge Date: 10/22/16 - Discharge Diagnosis (1) Acute CHF (congestive heart failure) Is this a current diagnosis for this admission?: Yes (2) Abdominal wall cellulitis Is this a current diagnosis for this admission?: Yes (3) COPD exacerbation Is this a current diagnosis for this admission?: Yes (4) Lymphedema Is this a current diagnosis for this admission?: Yes (5) Panniculitis Is this a current diagnosis for this admission?: Yes (6) Urinary tract infection Is this a current diagnosis for this admission?: Yes (7) Acute and chronic respiratory failure ([id number]) Is this a current diagnosis for this admission?: Yes (10) Anxiety Is this a current diagnosis for this admission?: Yes (11) Morbid obesity with body mass index of 50.0-59.9 in adult Is this a current diagnosis for this admission?: Yes (12) Tracheostomy dependence Is this a current diagnosis for this admission?: Yes - Additional Information Resuscitation Status: Full Code Discharge Diet: Cardiac, Diabetic Discharge Activity: Activity As Tolerated, Balance Activity w/Rest, Slowly Increase Activity, Weigh Daily Home Medications: Albuterol Sulfate [Proair HFA] 2 puff IH Q6HP PRN 10/19/16 Albuterol Sulfate [Ventolin 0.083% Neb 2.5 mg/3 mL Ampul] 2.5 mg NEB RTQ4HP PRN 10/19/16 Amlodipine Besylate [Norvasc 5 mg Tablet] 5 mg PO Q12 10/19/16 Bumetanide [Bumex 1 mg Tablet] 1 mg PO Q12 10/19/16 Gabapentin [Neurontin 300 mg Capsule] 300 mg PO Q12 10/19/16 Lorazepam [Ativan 0.5 mg Tablet] 0.5 mg PO Q12HP PRN 10/19/16 Lurasidone HCl [Latuda] 60 mg PO Q12 10/19/16 Metformin HCl [Glucophage] 1,000 mg PO BIDBS 10/19/16 Metoprolol Succinate [Toprol Xl 50 mg Tab.sr] 50 mg PO DAILY 10/19/16 Nystatin [Mycostatin Cream 15 gm] 1 applic TOP Q12 10/19/16 Nystatin [Mycostatin Topical Powder 15 gm] 1 applic TOP Q12 10/19/16 Omeprazole 40 mg PO DAILY 10/19/16 Sucralfate [Carafate 1 gm Tablet] 1 gm PO ACHS 10/19/16 Trazodone HCl [Desyrel] 100 mg PO HSP PRN 10/19/16 Docusate Sodium [Colace 100 mg Capsule] 100 mg PO BID #60 capsule 10/22/16 Levofloxacin [Levaquin 750 mg Tablet] 750 mg PO DAILY #10 tablet 10/22/16 Prednisone [Deltasone 20 mg Tablet] 40 mg PO DAILY #20 tablet 10/22/16 History of Present Illness History of Present Illness: NEENA ISLAS is a 50 year old female morbidly obese female, well-known to the hospitalist service for multiple admissions due to combination of issues , including panniculitis, chronic urinary tract infection due to chronic indwelling Ceja catheter, along with COPD exacerbation. She presents to the emergency room for shortness of breath but primarily increased redness to the lower aspect of her abdominal wall panniculus, with associated increased pain. This reportedly is her third ER visit over the past week for same. Despite treatment, pain and redness continues to worsen. Slight increase in her chronic shortness of breath with wheezing over the last 24 hours. Has a chronic indwelling tracheostomy, which is changed every 6 months. 6 L oxygen per nasal cannula 23/11. Chronic indwelling Ceja is changed on a monthly basis. Denies fever or chills, vomiting or chest pain. Also complains of intermittent panic attacks. Patient has been discussed with emergency room nurse practitioner who evaluated the patient, and who also stated that patient was having some mild to moderate wheezing and shortness of breath upon arrival, but the wheezing basically resolved with a single DuoNeb treatment. Hospitalized on our service December 15- of last year with discharge diagnoses including acute on chronic diastolic congestive heart failure, abdominal wall cellulitis/panniculitis, and complicated urinary tract infection, with ESBL E. coli and Proteus mirabilis. History and physical and discharge summary have been reviewed. Hospital Course Hospital Course: Admitted and started on vancomycin and Rocephin for apparent UTI and skin infection of her pannus. Patient pannus infection quickly resolved. Patient was found to have E. coli UTI which was pansensitive. Patient additionally had some evidence of COPD exacerbation as she does continue to smoke despite having a tracheostomy at home. Patient was placed on prednisone and antibiotics were continued. Sputum culture was obtained which revealed Pseudomonas, Corynebacterium, and Proteus mirabilis. Patient does often engage in placing unsterile equipment in her tracheostomy. Patient is advised to follow appropriate trach care as has been provided for her. These were all sensitive to Levaquin and patient was placed on Levaquin for her UTI as well as for her sputum. Also was found to have acute on chronic diastolic heart failure. Diuresed back to baseline. Repeat echocardiogram was performed today which revealed a low normal ejection fraction, diastolic dysfunction, and moderate pulmonary hypertension. Patient also refused to use ventilator while in hospital. Patient was feeling much improved and discharged home in stable condition. Physical Exam Vital Signs: Temp Pulse Resp BP Pulse Ox 98.6 F 74 20 137/56 H 95 10/22/16 18:08 10/22/16 18:08 10/22/16 18:08 10/22/16 11:52 10/22/16 18:08 Intake & Output 10/21/16 10/22/16 10/23/16 06:59 06:59 06:59 Intake Total 2043 1238 473 Output Total 5400 3040 1200 Balance -6687 -8739 -865 Exam: GENERAL: No acute distress, morbidly obese HEENT: Conjunctiva clear, nonicteric, moist mucous membranes, no JVD, tracheostomy noted RESPIRATORY: Expiratory phase, prolonged; otherwise clear CARDIAC: Regular rate and rhythm, no murmurs/gallops/rubs--limited by body habitus ABDOMEN: Soft, nondistended, nontender, positive bowel sounds, no rebound, no guarding EXTREMETIES: trace bilateral lower extremity edema NEUROLOGIC: Alert, oriented to person/place/time, CN's grossly intact, no focal deficits SKIN: Large abdominal pannus without erythema PSYCH: Normal mood, normal affect Results Laboratory Results: 10/22/16 05:47 10/22/16 05:47 10/22/16 10/22/16 05:47 05:47 WBC 11.0 H RBC 4.37 Hgb 11.7 L Hct 36.4 MCV 83 MCH 26.7 L MCHC 32.1 RDW 15.6 H Plt Count 216 Seg Neutrophils % 92.1 H Lymphocytes % 5.3 L Monocytes % 1.9 L Eosinophils % 0.0 Basophils % 0.7 Absolute Neutrophils 10.1 H Absolute Lymphocytes 0.6 Absolute Monocytes 0.2 Absolute Eosinophils 0.0 Absolute Basophils 0.1 Sodium 135.9 L Potassium 4.3 Chloride 92 L Carbon Dioxide 33 H Anion Gap 11 BUN 35 H Creatinine 0.92 Est GFR ( Amer) > 60 Est GFR (Non-Af Amer) > 60 Glucose 171 H Calcium 9.4 Magnesium 2.0 10/20/16 14:30 Tracheal Aspirate Gram Stain - Final 10/20/16 14:30 Tracheal Aspirate Sputum Culture - Final Pseudomonas Aeruginosa Proteus Mirabilis Corynebacterium Striatum Normal Janette Absent Impressions: Chest X-Ray 10/18/16 21:34 IMPRESSION: Pulmonary vascular congestion with mild alveolar and interstitial edema. Cardiomegaly. Tracheostomy tube in good positioning. Qualifiers PATEINT BEING DISCHARGED WITH ANY OF THE FOLLOWING DIAGNOSIS?: Heart Failure HF Pt being discharged on ACEI for LVEF less than 40%?: No Reason(s) for not prescribing ACEI:: Not indicated - Give him 40 HF Pt being discharged on ARBS for LVEF less than 40%?: No Reason(s) for not prescribing ARBS:: Not indicated - EF >40 HF Pt with Afib discharged with Warfarin?: No Reason(s) for not prescribing Warfarin:: Not indicated - no fib HF Pt discharged on evidence-based Beta Lluvia:: Yes Plan Time Spent: Less than 30 Minutes
[2016-10-23] MEDS ORDERED: LEVOFLOXACIN 750 MG TABLET PO SCH (10:00)
== END 2016-10-22 19:42 | disposition home or self-care (01) | DRG 602 ==
LOC: ER 21:12 → EH 10-19 01:16 → UNDOADMIN 10-19 01:16 → EH 10-19 03:45 → 3S 10-19 03:45
PROVIDERS: ADMIT Family Medicine; ATTEND Family Medicine
DX: L03.311 Cellulitis of abdominal wall (principal); I50.33 Acute on chronic diastolic (congestive) heart failure; J96.22 Acute and chronic respiratory failure with hypercapnia; J96.21 Acute and chronic respiratory failure with hypoxia; T83.511A Infection and inflammatory reaction due to indwelling urethral catheter, initial encounter; J44.1 Chronic obstructive pulmonary disease with (acute) exacerbation; Z68.43 Body mass index [BMI] 50.0-59.9, adult; N39.0 Urinary tract infection, site not specified; I11.0 Hypertensive heart disease with heart failure; E66.01 Morbid (severe) obesity due to excess calories; I48.91 Unspecified atrial fibrillation; I25.10 Atherosclerotic heart disease of native coronary artery without angina pectoris; E78.2 Mixed hyperlipidemia; F90.9 Attention-deficit hyperactivity disorder, unspecified type; F31.9 Bipolar disorder, unspecified; F41.1 Generalized anxiety disorder; F17.200 Nicotine dependence, unspecified, uncomplicated; B96.20 Unspecified Escherichia coli [E. coli] as the cause of diseases classified elsewhere; E65 Localized adiposity; E11.9 Type 2 diabetes mellitus without complications; M79.7 Fibromyalgia; M19.90 Unspecified osteoarthritis, unspecified site; I27.2 Other secondary pulmonary hypertension; B96.5 Pseudomonas (aeruginosa) (mallei) (pseudomallei) as the cause of diseases classified elsewhere; B96.4 Proteus (mirabilis) (morganii) as the cause of diseases classified elsewhere; I89.0 Lymphedema, not elsewhere classified; B96.89 Other specified bacterial agents as the cause of diseases classified elsewhere; Z79.899 Other long term (current) drug therapy; Z79.84 Long term (current) use of oral hypoglycemic drugs; Z79.52 Long term (current) use of systemic steroids; Z90.49 Acquired absence of other specified parts of digestive tract; Z93.0 Tracheostomy status; Z83.3 Family history of diabetes mellitus; Z82.49 Family history of ischemic heart disease and other diseases of the circulatory system; Z88.6 Allergy status to analgesic agent; Z99.81 Dependence on supplemental oxygen; Z87.440 Personal history of urinary (tract) infections; D64.9 Anemia, unspecified; Y84.6 Urinary catheterization as the cause of abnormal reaction of the patient, or of later complication, without mention of misadventure at the time of the procedure
CPT/HCPCS: 36415; 71010; 80048; 80053; 80202; 81001; 82565; 82962; 83735; 84703; 85025; 87040; 87070; 87077; 87086; 87088; 87186; 87205; 93005; 93010; 93306; 94640; 96365; 96375; 99285; J0696; J1644; J1815; J1940; J2060; J3370; J3490; J7060; J7512; J7620

== ENCOUNTER 2016-10-27 14:42 | Emergency (ER) | payer MEDICAID ==
[2016-10-27] MEDS ORDERED: IPRATROPIUM/ALBUTEROL 0.5-2.5 MG/3 ML AMPUL NEB ONE (14:59)
[2016-10-27] MEDS ORDERED: ALBUTEROL SULFATE 0.083% NEB 2.5 MG/3 ML AMPUL NEB ONE (14:59)
--- NOTE | 2016-10-27 15:03 | ER Document Report ---
ED Respiratory Problem - General Chief Complaint: Breathing Difficulty Stated Complaint: DIFFICUTY BREATHING Time Seen by Provider: 10/27/16 14:52 Mode of Arrival: Stretcher Information source: Patient TRAVEL OUTSIDE OF THE [place] IN LAST 30 DAYS: No - HPI Patient complains to provider of: CHF, COPD, Cough, Short of breath Onset: This morning Duration: Worse/persistent Context: Hx CHF, Hx COPD, Smoker Short of Breath: Mild Chest pain/discomfort: Tightness Cough: Nonproductive At home treatment: Bronchodilators, Oxygen Associated symptoms: Chest pain/discomfort, Congestion, Cough, Short of breath, Wheezing Similar symptoms previously: Yes Recently seen / treated by doctor: Yes Notes: Patient is a 50-year-old female with a history of congestive heart failure and COPD who continues to smoke, she is oxygen dependent with a trach, she is well known to this emergency room for similar complaints and presents today for chest pain/tightness with shortness of breath and wheezing, nonproductive cough , and lymphedema, she was recently discharged from the facility last week and had a follow-up appointment with her primary care provider this morning which she was unable to make due to transportation issues - Related Data Allergies/Adverse Reactions: ziprasidone HCl [From Geodon] Allergy (Mild, Verified 10/27/16 15:00) itching acetaminophen [Acetaminophen] Adverse Reaction (Unknown, Verified 10/27/16 15:00 ) Past Medical History - General Information source: Patient - Social History Smoking Status: Current Every Day Smoker Family History: Reviewed & Not Pertinent, CAD, DM, Hypertension - Past Medical History Cardiac Medical History: Reports: Hx Atrial Fibrillation, Hx Congestive Heart Failure, Hx Coronary Artery Disease, Hx Hypercholesterolemia, Hx Hypertension, Hx Heart Murmur Denies: Hx DVT, Hx Pulmonary Embolism Pulmonary Medical History: Reports: Hx Asthma, Hx Bronchitis, Hx COPD, Hx Pneumonia, Hx Intubation, Hx Respiratory Failure, Hx Sleep Apnea Neurological Medical History: Denies: Hx Seizures Endocrine Medical History: Reports: Hx Diabetes Mellitus Type 2. Denies: Hx Diabetes Mellitus Type 1, Hx Hyperthyroidism, Hx Hypothyroidism Renal/ Medical History: Reports: Hx Renal Insufficiency GI Medical History: Reports: Hx Gastroesophageal Reflux Disease, Hx Hiatal Hernia. Denies: Hx Cirrhosis, Hx Hepatitis Musculoskeltal Medical History: Reports Hx Arthritis, Reports Hx Fibromyalgia Psychiatric Medical History: Reports: Hx Attention Deficit Hyperactivity Disorder, Hx Bipolar Disorder, Hx Depression Traumatic Medical History: Reports: Hx Fractures Infectious Medical History: Reports: Hx C-Diff, Hx MRSA. Denies: Hx Hepatitis Past Surgical History: Reports: Hx Appendectomy, Hx Tonsillectomy, Other - Permanent tracheostomy - Immunizations Hx Diphtheria, Pertussis, Tetanus Vaccination: Yes Hx Pneumococcal Vaccination: 05/06/09 Review of Systems - Review of Systems Constitutional: No symptoms reported. denies: Fever EENT: No symptoms reported Cardiovascular: Chest pain, Edema Respiratory: See HPI Gastrointestinal: No symptoms reported Genitourinary: No symptoms reported Female Genitourinary: No symptoms reported Musculoskeletal: No symptoms reported Skin: No symptoms reported Hematologic/Lymphatic: No symptoms reported Neurological/Psychological: No symptoms reported -: Yes All other systems reviewed and negative Physical Exam - Vital signs Vitals: Temp Pulse Resp BP Pulse Ox 98.1 F 100 26 H 140/52 H 96 10/27/16 14:45 10/27/16 14:45 10/27/16 14:45 10/27/16 14:45 10/27/16 14:45 Interpretation: Normal - General General appearance: Appears well, Alert In distress: None - HEENT Head: Normocephalic, Atraumatic Eyes: Normal Conjunctiva: Normal Extraocular movements intact: Yes Eyelashes: Normal Pupils: PERRL Neck: Other - Tracheostomy - Respiratory Respiratory status: No respiratory distress Chest status: Nontender Breath sounds: Wheezing Chest palpation: Normal - Cardiovascular Rhythm: Regular Heart sounds: Normal auscultation Murmur: No - Abdominal Inspection: Morbidly Obese, Other - Mild edema with mild erythema and pannus crease Distension: No distension Bowel sounds: Normal Tenderness: Nontender Organomegaly: No organomegaly - Back Back: Normal - Extremities General upper extremity: Normal inspection, Nontender, Normal color, Normal ROM , Normal temperature General lower extremity: Normal inspection, Nontender, Normal color, Normal ROM , Normal temperature, Normal weight bearing. No: Edema, Greyson's sign - Neurological Neuro grossly intact: Yes Cognition: Normal Orientation: AAOx4 Pillager Coma Scale Eye Opening: Spontaneous Pillager Coma Scale Verbal: Oriented Gissel Coma Scale Motor: Obeys Commands Gissel Coma Scale Total: 15 Speech: Normal Motor strength normal: LUE, RUE, LLE, RLE Sensory: Normal - Psychological Associated symptoms: Normal affect, Normal mood - Skin Skin Temperature: Warm Skin Moisture: Dry Skin Color: Normal Course - Re-evaluation Re-evalutation: 10/27/16 17:40 Reports feeling much better on reevaluation after having breathing treatment, her lung sounds are significantly improved as well signs have been stable, lab and imaging findings were discussed with her at bedside, she is noted to have mild leukocytosis, which she is currently on antibiotics for urinary tract infection which seems improved from previous samples, chest x-ray shows chronic changes consistent with mild pulmonary vascular congestion, patient will be discharged with instructions to cease smoking, follow-up with her primary care provider or return if symptoms worsen, patient acknowledges understanding and agreement with this plan - Vital Signs Vital signs: Temp Pulse Resp BP Pulse Ox 98.5 F 88 34 H 152/64 H 96 10/27/16 15:21 10/27/16 15:21 10/27/16 17:01 10/27/16 17:01 10/27/16 17:01 - Laboratory Result Diagrams: 10/27/16 15:12 10/27/16 15:12 Laboratory results interpreted by me: 10/27/16 10/27/16 10/27/16 15:12 15:12 15:12 WBC 15.4 H Hgb 11.8 L MCH 26.5 L MCHC 31.9 L RDW 15.9 H Absolute Neutrophils 11.7 H Chloride 94 L Carbon Dioxide 38 H BUN 25 H AST 10 L Creatine Kinase < 20 L NT-Pro-B Natriuret Pep 409 H Total Protein 5.6 L Albumin 3.2 L Urine Protein Urine Blood Ur Leukocyte Esterase 10/27/16 15:38 WBC Hgb MCH MCHC RDW Absolute Neutrophils Chloride Carbon Dioxide BUN AST Creatine Kinase NT-Pro-B Natriuret Pep Total Protein Albumin Urine Protein 100 H Urine Blood MODERATE H Ur Leukocyte Esterase SMALL H - Diagnostic Test Radiology reviewed: Image reviewed, Reports reviewed - EKG Interpretation by Me Rate: Normal Rhythm: NSR When compared to previous EKG there are: No significant change Discharge - Discharge Clinical Impression: COPD exacerbation, Panniculitis Condition: Stable Disposition: HOME, SELF-CARE Instructions: Chronic Obstructive Lung Disease ([facility]) Forms: Smoking Cessation Education
[2016-10-27 15:25] LABS: ABSOLUTE BASOPHILS # (AUTO) 0.1 10^3/uL (0.0-0.2); ABSOLUTE EOSINOPHILS # (AUTO) 0.1 10^3/uL (0.0-0.6); ABSOLUTE LYMPHOCYTES (AUTO) 2.7 10^3/uL (0.5-4.7); ABSOLUTE NEUT (AUTO) 11.7 10^3/uL (1.7-8.2); BASOPHILS % (AUTO) 0.3 % (0-2); EOSINOPHILS % (AUTO) 0.7 % (0-6); HEMOGLOBIN 11.8 g/dL (12.0-15.5); HGB HCT DIFFERENCE -1.6; LYMPHOCYTES % (AUTO) 17.2 % (13-45); MEAN CORPUSCULAR HEMOGLOBIN 26.5 pg (27.0-33.4); MEAN CORPUSCULAR HGB CONC 31.9 g/dL (32.0-36.0); MEAN CORPUSCULAR VOLUME 83 fl (80-97); MONOCYTES % (AUTO) 6.2 % (3-13); RED BLOOD COUNT 4.45 10^6/uL (3.72-5.28); RED CELL DISTRIBUTION WIDTH 15.9 % (11.5-14.0); SEGMENTED NEUTROPHILS % (AUTO) 75.6 % (42-78); WHITE BLOOD COUNT 15.4 10^3/uL (4.0-10.5)
[2016-10-27 15:41] LABS: ALANINE AMINOTRANSFERASE 25 U/L (9-52); ALBUMIN 3.2 g/dL (3.5-5.0); ALKALINE PHOSPHATASE 92 U/L (38-126); ANION GAP 7 (5-19); ASPARTATE AMINO TRANSFERASE 10 U/L (14-36); BILIRUBIN,DIRECT 0.3 mg/dL (0.0-0.4); BILIRUBIN,TOTAL 0.3 mg/dL (0.2-1.3); BLOOD UREA NITROGEN 25 mg/dL (7-20); CARBON DIOXIDE 38 mmol/L (22-30); CHLORIDE 94 mmol/L (98-107); CREATININE RESULT 0.93 mg/dL (0.52-1.25); GLUCOSE 83 mg/dL (75-110); SODIUM 138.7 mmol/L (137-145); TOTAL PROTEIN 5.6 g/dL (6.3-8.2)
[2016-10-27 15:42] LABS: CREATINE KINASE < 20 U/L (30-135)
--- NOTE | 2016-10-27 15:47 | RADIOLOGY REPORT (SQ) ---
EXAM DESCRIPTION: CHEST SINGLE VIEW COMPLETED DATE/TIME: 10/27/2016 3:39 pm REASON FOR STUDY: bed 18 db COMPARISON: 10/18/2016 EXAM PARAMETERS: NUMBER OF VIEWS: One view. TECHNIQUE: Single frontal radiographic view of the chest acquired. RADIATION DOSE: NA LIMITATIONS: None. FINDINGS: LUNGS AND PLEURA: There is slight haziness in both lung bases, possibly secondary to overl emma soft tissues. MEDIASTINUM AND HILAR STRUCTURES: No masses. Contour normal. HEART AND VASCULAR STRUCTURES: Cardiomegaly with pulmonary vascular congestion. BONES: No acute findings. HARDWARE: Tracheostomy tube. OTHER: No other significant finding. IMPRESSION: Cardiomegaly with pulmonary vascular congestion. Mild pulmonary edema is suggested. TECHNICAL DOCUMENTATION: JOB ID: [id number]
[2016-10-27 15:53] LABS: CREATINE KINASE MB 0.51 ng/mL (<4.55); TROPONIN I 0.017 ng/mL
[2016-10-27 16:07] LABS: AMORPHOUS SEDIMENT,URINE TRACE /HPF; APPEARANCE,URINE SLIGHTLY-CLOUDY; BILIRUBIN,URINE NEGATIVE (NEGATIVE); GLUCOSE, URINE NEGATIVE (NEGATIVE); KETONES,URINE NEGATIVE (NEGATIVE); LEUKOCYTE ESTERASE,URINE SMALL (NEGATIVE); NITRITE,URINE NEGATIVE (NEGATIVE); PROTEIN,URINE 100 mg/dL (NEGATIVE); URINE SPECIFIC GRAVITY 1.021; UROBILINOGEN,URINE NEGATIVE mg/dL (<2.0)
[2016-10-27 17:05] VITALS: BP 152/64
== END 2016-10-27 18:51 | disposition home or self-care (01) ==
LOC: ER 14:42
DX: J44.1 Chronic obstructive pulmonary disease with (acute) exacerbation (principal); M79.3 Panniculitis, unspecified; I50.9 Heart failure, unspecified; F17.200 Nicotine dependence, unspecified, uncomplicated; E66.01 Morbid (severe) obesity due to excess calories; I11.0 Hypertensive heart disease with heart failure; I48.91 Unspecified atrial fibrillation; E78.00 Pure hypercholesterolemia, unspecified; E11.9 Type 2 diabetes mellitus without complications; K21.9 Gastro-esophageal reflux disease without esophagitis; Z99.81 Dependence on supplemental oxygen; Z86.14 Personal history of Methicillin resistant Staphylococcus aureus infection; Z93.0 Tracheostomy status; Z88.6 Allergy status to analgesic agent
CPT/HCPCS: 94640 ×2; 99285; 36415; 82553; 82550; 85025; 80053; 81001; 84484; 83880; 71010; J7620

== ENCOUNTER 2016-10-31 19:32 | Emergency (ER) | payer MEDICAID ==
[2016-10-31] MEDS ORDERED: LORAZEPAM 0.5 MG TABLET PO ONE (20:37)
--- NOTE | 2016-10-31 20:39 | ER Document Report ---
ED General - General Mode of Arrival: Medic Information source: Patient TRAVEL OUTSIDE OF THE [place] IN LAST 30 DAYS: No - HPI Patient complains to provider of: Abdominal Swelling and Shortness of Breath Onset: Other - see notes above Associated symptoms: Other - see notes above <HAILEY LATHAM - Last Filed: 10/31/16 23:18> <RA MART - Last Filed: 10/31/16 23:55> - General Chief Complaint: Abdominal Swelling Stated Complaint: FOOT AND ABDOMINAL PAIN Time Seen by Provider: 10/31/16 20:23 Notes: 50 year old female with history of CHF, oxygen dependent COPD, and abdominal panniculitis presents to the ED via EMS complaining of increasing right sided abdominal swelling and pain that started last night. Patient has not been able to see the underside of her pannus, so is unsure if this swelling and pain is similar to previous episodes that she has. Patient denies fever. Patient has historically been on antibiotics for panniculitis and reports that it has helped in the past. In addition to the abdominal swelling, the patient is complaining of left lower extremity swelling that started 'a while ago' ( negative for DVT 2 weeks ago) and shortness of breath that started while in the ED. Patient is concerned that her fluid retention is causing her shortness of breath and appears to be highly anxious and shaking. Patient is also on Bumex and has tried increasing her dose to help with the fluid retention. Patient denies chest pain, nausea, vomiting, and diarrhea. Patient was here on 10/27/2016 for COPD exacerbation. (HAILEY LATHAM) - Related Data Allergies/Adverse Reactions: ziprasidone HCl [From Geodon] Allergy (Mild, Verified 10/27/16 15:00) itching acetaminophen [Acetaminophen] Adverse Reaction (Unknown, Verified 10/27/16 15:00 ) Past Medical History - General Information source: Patient - Social History Smoking Status: Current Every Day Smoker Chew tobacco use (# tins/day): No Frequency of alcohol use: None Drug Abuse: None Family History: Reviewed & Not Pertinent, CAD, DM, Hypertension - Past Medical History Cardiac Medical History: Reports: Hx Atrial Fibrillation, Hx Congestive Heart Failure, Hx Coronary Artery Disease, Hx Hypercholesterolemia, Hx Hypertension, Hx Heart Murmur Pulmonary Medical History: Reports: Hx Asthma, Hx Bronchitis, Hx COPD, Hx Pneumonia, Hx Intubation, Hx Respiratory Failure, Hx Sleep Apnea Endocrine Medical History: Reports: Hx Diabetes Mellitus Type 2 Renal/ Medical History: Reports: Hx Renal Insufficiency GI Medical History: Reports: Hx Gastroesophageal Reflux Disease, Hx Hiatal Hernia Musculoskeltal Medical History: Reports Hx Arthritis, Reports Hx Fibromyalgia Psychiatric Medical History: Reports: Hx Attention Deficit Hyperactivity Disorder, Hx Bipolar Disorder, Hx Depression Traumatic Medical History: Reports: Hx Fractures Infectious Medical History: Reports: Hx C-Diff, Hx MRSA Past Surgical History: Reports: Hx Appendectomy, Hx Tonsillectomy, Other - Permanent tracheostomy - Immunizations Hx Diphtheria, Pertussis, Tetanus Vaccination: Yes Hx Pneumococcal Vaccination: 05/06/09 <HAILEY LATHAM - Last Filed: 10/31/16 23:18> Review of Systems - Review of Systems Constitutional: No symptoms reported. denies: Fever EENT: No symptoms reported Cardiovascular: No symptoms reported. denies: Chest pain Respiratory: See HPI, Short of breath Gastrointestinal: See HPI, Abdomen distended - swelling. denies: Diarrhea, Nausea, Vomiting Genitourinary: No symptoms reported Female Genitourinary: No symptoms reported Musculoskeletal: See HPI, Leg swelling - left Skin: No symptoms reported Hematologic/Lymphatic: No symptoms reported Neurological/Psychological: No symptoms reported -: Yes All other systems reviewed and negative <HAILEY LATHAM - Last Filed: 10/31/16 23:18> Physical Exam <HAILEY LATHAM - Last Filed: 10/31/16 23:18> <RA MART - Last Filed: 10/31/16 23:55> - Vital signs Vitals: Pulse Ox 92 10/31/16 19:55 - Notes Notes: GENERAL: Alert, interacts well. Appears anxious and is shaking. Morbid obesity. HEAD: Normocephalic, atraumatic. EYES: Pupils equal, round, and reactive to light. Extraocular movements intact. ENT: Oral mucosa moist, tongue midline. NECK: Full range of motion. Supple. Trachea midline. Trach in place. LUNGS: Diffuse mild expiratory wheezing that does not clear with cough. No rales or rhonchi. No respiratory distress. HEART: Regular rhythm, but tachycardic. No murmurs, gallops, or rubs. ABDOMEN: Enormous pannus. Mild erythema under right side, none on the left side. Some swelling noted bilaterally, right greater than left. No exudate or abscess. Soft, non-tender. EXTREMITIES: Moves all 4 extremities spontaneously. Radial and dorsalis pedis pulses 2/4 bilaterally. No cyanosis. 2+ pitting edema of the left lower extremity that is worse at the left foot but goes to the level of the left knee. NEUROLOGICAL: Alert and oriented x3. Normal speech. PSYCH: Normal affect, but appears anxious and is shaking. SKIN: Warm and dry. Superficial abrasion to the right pannus with increased warmth. (HAILEY LATHAM) Course - Laboratory Result Diagrams: 10/31/16 21:30 10/31/16 21:30 <HAILEY LATHAM - Last Filed: 10/31/16 23:18> - Laboratory Result Diagrams: 10/31/16 21:30 10/31/16 21:30 <RA MART - Last Filed: 10/31/16 23:55> - Re-evaluation Re-evalutation: 10/31/16 23:31 CBC Shows leukocytosis of 18.5 possibly from her worsening panniculitis but also more likely from the prednisone that she has been started on recently, hemoglobin stable at 11.8, coags normal, venous blood gas mildly acidotic at 7.33, CMP shows elevated BUN otherwise unremarkable. Chest x-ray shows no acute process only the chronic changes in trach sheath in good position. Patient panniculitis is quite mild at this point, does not appear as severe as it has been in the past, patient is quite anxious, after being given a single dose of Ativan all of her difficulty breathing resolved. She does not appear to have any respiratory distress that is unrelated to anxiety. Discussed with patient the need to try outpatient antibiotics first, initial dose of vancomycin Rocephin will be given here and then discharged on Keflex and Bactrim. Patient is to return for fever, increasing swelling or redness of the pannus or any new or concerning symptoms. (RA MART) - Vital Signs Vital signs: Temp Pulse Resp BP Pulse Ox 92 10/31/16 19:55 - Laboratory Laboratory results interpreted by me: 10/31/16 10/31/16 10/31/16 21:30 21:30 21:30 WBC 18.5 H Hgb 11.8 L MCH 26.0 L MCHC 30.8 L RDW 16.0 H Seg Neutrophils % 78.2 H Absolute Neutrophils 14.5 H VBG HCO3 32.5 H Carbon Dioxide 33 H BUN 29 H Glucose 114 H POC Glucose AST 12 L 10/31/16 21:35 WBC Hgb MCH MCHC RDW Seg Neutrophils % Absolute Neutrophils VBG HCO3 Carbon Dioxide BUN Glucose POC Glucose 128 H AST - EKG Interpretation by Me Additional EKG results interpreted by me: 10/31/16 23:32 EKG shows sinus tachycardia rate of 114, normal axis, normal intervals, no ST segment elevations or depression, no T-wave inversions per my interpretation. ( RA MART) Discharge <HAILEY LATHAM - Last Filed: 10/31/16 23:18> <RA MART - Last Filed: 10/31/16 23:55> - Discharge Clinical Impression: Panniculitis, Morbid obesity with body mass index of 50.0-59.9 in adult, Tracheostomy dependence Condition: Stable Disposition: HOME, SELF-CARE Additional Instructions: Please take the Bactrim and Keflex as directed until they are gone. Do not stop taking the prednisone or the Levaquin that you were previously prescribed. Please return should your swelling worsen, should you develop fevers or should you have increased pain in your pannus. Prescriptions: Cephalexin Monohydrate [Keflex 500 mg Capsule] 1,000 mg PO BID #28 capsule Sulfamethoxazole/Trimethoprim [Bactrim Ds Tablet] 1 each PO BID #14 tablet Referrals: MARILYNN BAY PA-C [Primary Care Provider] - Follow up in 3-5 days Scribe Attestation: 10/31/16 23:55 I personally performed the services described in the documentation, reviewed and edited the documentation which was dictated to the scribe in my presence, and it accurately records my words and actions. (RA MART) Scribe Documentation - Scribe Written by Vidhya:: Vidhya Shepherd, [id number] acting as scribe for :: Hussein <HAILEY LATHAM - Last Filed: 10/31/16 23:18>
--- NOTE | 2016-10-31 21:00 | RADIOLOGY REPORT (SQ) ---
EXAM DESCRIPTION: CHEST SINGLE VIEW COMPLETED DATE/TIME: 10/31/2016 8:48 pm REASON FOR STUDY: SOB COMPARISON: 10/27/2016 NUMBER OF VIEWS: One view. TECHNIQUE: Single frontal radiographic view of the chest acquired. LIMITATIONS: None. FINDINGS: LUNGS AND PLEURA: No opacities, masses or pneumothorax. No pleural effusion. MEDIASTINUM AND HILAR STRUCTURES: No masses or contour abnormality. HEART AND VASCULATURE: Cardiac enlargement. Vascular congestion. BONES: No acute findings. HARDWARE: A tracheostomy sheath projects in the midline over the tracheal air shadow. OTHER: No other significant finding. IMPRESSION: Stable radiographic appearance of the chest, again demonstrating cardiac enlargement and vascular congestion. Tracheostomy sheath without evidence of complication. TECHNICAL DOCUMENTATION: JOB ID: [id number] [employer]- All Rights Reserved
[2016-10-31 22:07] LABS: ABSOLUTE BASOPHILS # (AUTO) 0.1 10^3/uL (0.0-0.2); ABSOLUTE EOSINOPHILS # (AUTO) 0.1 10^3/uL (0.0-0.6); ABSOLUTE LYMPHOCYTES (AUTO) 2.8 10^3/uL (0.5-4.7); ABSOLUTE MONOCYTES (AUTO) 1.1 10^3/uL (0.1-1.4); ABSOLUTE NEUT (AUTO) 14.5 10^3/uL (1.7-8.2); BASOPHILS % (AUTO) 0.3 % (0-2); EOSINOPHILS % (AUTO) 0.7 % (0-6); HEMATOCRIT 38.3 % (36.0-47.0); HEMOGLOBIN 11.8 g/dL (12.0-15.5); HGB HCT DIFFERENCE -2.9; LYMPHOCYTES % (AUTO) 14.9 % (13-45); MEAN CORPUSCULAR HGB CONC 30.8 g/dL (32.0-36.0); MEAN CORPUSCULAR VOLUME 84 fl (80-97); MONOCYTES % (AUTO) 5.9 % (3-13); RED BLOOD COUNT 4.54 10^6/uL (3.72-5.28); SEGMENTED NEUTROPHILS % (AUTO) 78.2 % (42-78); VENOUS BLOOD BASE EXCESS 4.9 mmol/L; VENOUS BLOOD HCO3 32.5 mmol/L (20-32); VENOUS BLOOD PH 7.33 (7.30-7.42); WHITE BLOOD COUNT 18.5 10^3/uL (4.0-10.5)
[2016-10-31 22:14] LABS: ALANINE AMINOTRANSFERASE 33 U/L (9-52); ALBUMIN 3.5 g/dL (3.5-5.0); ALKALINE PHOSPHATASE 103 U/L (38-126); ANION GAP 8 (5-19); ASPARTATE AMINO TRANSFERASE 12 U/L (14-36); BILIRUBIN,DIRECT 0.3 mg/dL (0.0-0.4); BILIRUBIN,TOTAL 0.4 mg/dL (0.2-1.3); BLOOD UREA NITROGEN 29 mg/dL (7-20); CALCIUM 9.1 mg/dL (8.4-10.2); CARBON DIOXIDE 33 mmol/L (22-30); CHLORIDE 99 mmol/L (98-107); CREATININE RESULT 0.79 mg/dL (0.52-1.25); GLUCOSE 114 mg/dL (75-110); SODIUM 140.4 mmol/L (137-145); TOTAL PROTEIN 6.4 g/dL (6.3-8.2)
[2016-10-31 22:16] LABS: PROTHROMBIN TIME 12.5 SEC (11.4-15.4)
--- NOTE | 2016-10-31 22:17 | EKG REPORT ---
SEVERITY:- OTHERWISE NORMAL ECG - SINUS TACHYCARDIA : Confirmed by: Christine Brown 31-Oct-2016 22:16:51
[2016-10-31] MEDS ORDERED: CEFTRIAXONE 1 GM/D5W RTU 50 ML IV ONE (22:43)
[2016-10-31] MEDS ORDERED: VANCOMYCIN HCL INJ 1000 MG VIAL IV ONE (22:43)
[2016-11-01 04:07] VITALS: BP 114/39
== END 2016-11-01 03:00 | disposition home or self-care (01) ==
LOC: ER 19:32
DX: M79.3 Panniculitis, unspecified (principal); E66.01 Morbid (severe) obesity due to excess calories; Z68.43 Body mass index [BMI] 50.0-59.9, adult; R10.9 Unspecified abdominal pain; Z93.0 Tracheostomy status; F17.200 Nicotine dependence, unspecified, uncomplicated; J44.9 Chronic obstructive pulmonary disease, unspecified; Z99.81 Dependence on supplemental oxygen; I48.91 Unspecified atrial fibrillation; I11.0 Hypertensive heart disease with heart failure; I50.9 Heart failure, unspecified; I25.10 Atherosclerotic heart disease of native coronary artery without angina pectoris; E11.9 Type 2 diabetes mellitus without complications; Z88.6 Allergy status to analgesic agent; Z86.14 Personal history of Methicillin resistant Staphylococcus aureus infection
CPT/HCPCS: 93005; 99284; 96365; 96367; 36415; 87040; 82962; 85025; 85610; 80053; 82803; 83605; 71010; 93010; J3370; J0696

== ENCOUNTER 2016-11-02 02:44 | Emergency (ER) | payer OTHER, MEDICAID ==
[2016-11-02] MEDS ORDERED: IPRATROPIUM/ALBUTEROL 0.5-2.5 MG/3 ML AMPUL NEB ONE (04:51)
--- NOTE | 2016-11-02 05:39 | ER Document Report ---
ED Medical Screen (RME) - General Chief Complaint: Leg Pain Stated Complaint: FOOT PAIN TRAVEL OUTSIDE OF THE [place] IN LAST 30 DAYS: No - HPI Notes: 11/02/16 05:37 Patient is returning tonight for abdominal wall pain with chronic abdominal wall cellulitis or infection patient was seen 2 days ago with your antibiotics patient with prescribed Bactrim and Keflex however patient denies receiving these prescriptions. States that the pain has increased. So complains of left leg pain has been evaluated multiple times in the past for DVT that has been negative - Related Data Allergies/Adverse Reactions: ziprasidone HCl [From Geodon] Allergy (Mild, Verified 10/27/16 15:00) itching acetaminophen [Acetaminophen] Adverse Reaction (Unknown, Verified 10/27/16 15:00 ) Past Medical History - Social History Frequency of alcohol use: None Drug Abuse: None - Past Medical History Cardiac Medical History: Reports: Hx Atrial Fibrillation, Hx Congestive Heart Failure, Hx Coronary Artery Disease, Hx Hypercholesterolemia, Hx Hypertension, Hx Heart Murmur Denies: Hx DVT, Hx Pulmonary Embolism Pulmonary Medical History: Reports: Hx Asthma, Hx Bronchitis, Hx COPD, Hx Pneumonia, Hx Intubation, Hx Respiratory Failure, Hx Sleep Apnea Neurological Medical History: Denies: Hx Seizures Endocrine Medical History: Reports: Hx Diabetes Mellitus Type 2. Denies: Hx Diabetes Mellitus Type 1, Hx Hyperthyroidism, Hx Hypothyroidism Renal/ Medical History: Reports: Hx Renal Insufficiency GI Medical History: Reports: Hx Gastroesophageal Reflux Disease, Hx Hiatal Hernia. Denies: Hx Cirrhosis, Hx Hepatitis Musculoskeltal Medical History: Reports Hx Arthritis, Reports Hx Fibromyalgia Psychiatric Medical History: Reports: Hx Attention Deficit Hyperactivity Disorder, Hx Bipolar Disorder, Hx Depression Traumatic Medical History: Reports: Hx Fractures Infectious Medical History: Reports: Hx C-Diff, Hx MRSA. Denies: Hx Hepatitis Past Surgical History: Reports: Hx Appendectomy, Hx Tonsillectomy, Other - Permanent tracheostomy - Immunizations Hx Diphtheria, Pertussis, Tetanus Vaccination: Yes Review of Systems - Review of Systems Constitutional: Other - Pain left leg pain Physical Exam - Vital signs Vitals: Temp Pulse Resp BP Pulse Ox 98.6 F 101 H 28 H 126/55 H 98 11/02/16 03:12 11/02/16 03:12 11/02/16 03:12 11/02/16 03:12 11/02/16 03:12 - General Notes: Morbidly obese with abdominal erythema Course - Vital Signs Vital signs: Temp Pulse Resp BP Pulse Ox 98.6 F 101 H 28 H 126/55 H 98 11/02/16 03:12 11/02/16 03:12 11/02/16 03:12 11/02/16 03:12 11/02/16 03:12
[2016-11-02 05:50] LABS: ABSOLUTE BASOPHILS # (AUTO) 0.1 10^3/uL (0.0-0.2); ABSOLUTE EOSINOPHILS # (AUTO) 0.1 10^3/uL (0.0-0.6); ABSOLUTE LYMPHOCYTES (AUTO) 1.8 10^3/uL (0.5-4.7); ABSOLUTE MONOCYTES (AUTO) 0.7 10^3/uL (0.1-1.4); ABSOLUTE NEUT (AUTO) 11.1 10^3/uL (1.7-8.2); BASOPHILS % (AUTO) 0.5 % (0-2); HEMATOCRIT 33.1 % (36.0-47.0); HEMOGLOBIN 10.4 g/dL (12.0-15.5); HGB HCT DIFFERENCE -1.9; LYMPHOCYTES % (AUTO) 13.4 % (13-45); MEAN CORPUSCULAR HEMOGLOBIN 26.4 pg (27.0-33.4); MEAN CORPUSCULAR HGB CONC 31.4 g/dL (32.0-36.0); MEAN CORPUSCULAR VOLUME 84 fl (80-97); MONOCYTES % (AUTO) 5.1 % (3-13); RED BLOOD COUNT 3.95 10^6/uL (3.72-5.28); RED CELL DISTRIBUTION WIDTH 16.3 % (11.5-14.0); WHITE BLOOD COUNT 13.8 10^3/uL (4.0-10.5)
[2016-11-02] MEDS ORDERED: ALBUTEROL SULFATE 0.083% NEB 2.5 MG/3 ML AMPUL NEB SCH (06:00)
[2016-11-02 06:03] LABS: BLOOD UREA NITROGEN 22 mg/dL (7-20); CALCIUM 8.4 mg/dL (8.4-10.2); CHLORIDE 99 mmol/L (98-107); CREATININE RESULT 0.62 mg/dL (0.52-1.25); GLUCOSE 106 mg/dL (75-110)
[2016-11-02 06:11] LABS: CARBON DIOXIDE 36 mmol/L (22-30); POTASSIUM 4.5 mmol/L (3.6-5.0); SODIUM 138.8 mmol/L (137-145)
[2016-11-02 06:14] LABS: ANION GAP 4 (5-19)
--- NOTE | 2016-11-02 07:45 | ER Document Report ---
ED General - General Chief Complaint: Leg Pain Stated Complaint: FOOT PAIN Time Seen by Provider: 11/02/16 06:03 Mode of Arrival: Medic Information source: Patient, [facility] Records Notes: 40-year-old female history of panniculitis, and heart failure trach morbid obesity presents with similar complaints as her previous visits. Patient notes her legs has been edematous, she notes the erythema is still around her panniculi TRAVEL OUTSIDE OF THE [place] IN LAST 30 DAYS: No - HPI Onset: Other Onset/Duration: Persistent Quality of pain: Achy Severity: Mild Pain Level: 1 Associated symptoms: Shortness of breath Exacerbated by: Denies Relieved by: Denies Similar symptoms previously: Yes Recently seen / treated by doctor: Yes - Related Data Allergies/Adverse Reactions: ziprasidone HCl [From Geodon] Allergy (Mild, Verified 10/27/16 15:00) itching acetaminophen [Acetaminophen] Adverse Reaction (Unknown, Verified 10/27/16 15:00 ) Past Medical History - Social History Smoking Status: Current Some Day Smoker Cigarette use (# per day): Yes Chew tobacco use (# tins/day): No Smoking Education Provided: Yes - Patient counselled regarding cessation for 4 minutes Frequency of alcohol use: None Drug Abuse: None Family History: Reviewed & Not Pertinent, CAD, DM, Hypertension - Past Medical History Cardiac Medical History: Reports: Hx Atrial Fibrillation, Hx Congestive Heart Failure, Hx Coronary Artery Disease, Hx Hypercholesterolemia, Hx Hypertension, Hx Heart Murmur Denies: Hx DVT, Hx Pulmonary Embolism Pulmonary Medical History: Reports: Hx Asthma, Hx Bronchitis, Hx COPD, Hx Pneumonia, Hx Intubation, Hx Respiratory Failure, Hx Sleep Apnea Neurological Medical History: Denies: Hx Seizures Endocrine Medical History: Reports: Hx Diabetes Mellitus Type 2. Denies: Hx Diabetes Mellitus Type 1, Hx Hyperthyroidism, Hx Hypothyroidism Renal/ Medical History: Reports: Hx Renal Insufficiency GI Medical History: Reports: Hx Gastroesophageal Reflux Disease, Hx Hiatal Hernia. Denies: Hx Cirrhosis, Hx Hepatitis Musculoskeltal Medical History: Reports Hx Arthritis, Reports Hx Fibromyalgia Psychiatric Medical History: Reports: Hx Attention Deficit Hyperactivity Disorder, Hx Bipolar Disorder, Hx Depression Traumatic Medical History: Reports: Hx Fractures Infectious Medical History: Reports: Hx C-Diff, Hx MRSA. Denies: Hx Hepatitis Past Surgical History: Reports: Hx Appendectomy, Hx Tonsillectomy, Other - Permanent tracheostomy - Immunizations Hx Diphtheria, Pertussis, Tetanus Vaccination: Yes Hx Pneumococcal Vaccination: 05/06/09 Review of Systems - Review of Systems Notes: REVIEW OF SYSTEMS: CONSTITUTIONAL : Denies fever, chills, or sweats. Denies recent illness. EENT: Denies eye, ear, throat, or mouth pain or symptoms. Denies nasal or sinus congestion or discharge. Denies throat, tongue, or mouth swelling or difficulty swallowing. CARDIOVASCULAR: Denies chest pain. Denies palpitations or racing or irregular heart beat. Denies ankle edema. RESPIRATORY: Admits to shortness of breath GASTROINTESTINAL: Denies abdominal pain or distention. Denies nausea, vomiting , or diarrhea. Denies blood in vomitus, stools, or per rectum. Denies black, tarry stools. Denies constipation. GENITOURINARY: Denies difficulty urinating, painful urination, burning, frequency, blood in urine, or discharge. FEMALE GENITOURINARY: Denies vaginal bleeding, heavy or abnormal periods, irregular periods. Denies vaginal discharge or odor. MUSCULOSKELETAL: Lower extremity edema SKIN: Admits to continued rash of abdomen HEMATOLOGIC : Denies easy bruising or bleeding. LYMPHATIC: Denies swollen, enlarged glands. NEUROLOGICAL: Denies confusion or altered mental status. Denies passing out or loss of consciousness. Denies dizziness or lightheadedness. Denies headache. Denies weakness or paralysis or loss of use of either side. Denies problems with gait or speech. Denies sensory loss, numbness, or tingling. Denies seizures. PSYCHIATRIC: Denies anxiety or stress. Denies depression, suicidal ideation, or homicidal ideation. ALL OTHER SYSTEMS REVIEWED AND NEGATIVE. PHYSICAL EXAMINATION: GENERAL: Morbidly obese female no acute distress HEAD: Atraumatic, normocephalic. EYES: Pupils equal round and reactive to light, extraocular movements intact, conjunctiva are normal. ENT: Nares patent, oropharynx clear without exudates. Moist mucous membranes. NECK: Normal range of motion, supple without lymphadenopathy LUNGS: Breath sounds clear to auscultation bilaterally and equal. No wheezes rales or rhonchi. HEART: Regular rate and rhythm without murmurs ABDOMEN: Soft, large panniculus, mild erythema noted Female : deferred Musculoskeletal: Lower extremity edema 2+ right lower extremity 1+ NEUROLOGICAL: Cranial nerves grossly intact. Normal speech, normal gait. Normal sensory, motor exams PSYCH: Normal mood, normal affect. SKIN: Erythema of the panniculi Dictation was performed using [employer] voice recognition software Physical Exam - Vital signs Vitals: Pulse BP Pulse Ox 101 H 126/55 H 97 11/02/16 03:05 11/02/16 03:05 11/02/16 03:05 Course - Re-evaluation Re-evalutation: 11/02/16 07:48 Patient's white count has improved, she looks better than her previous presentations or I have seen her myself, I did consult Dr. Germain since he admits this patient knows her better than I do, he spoke with patient in length , he believes that the patient should be admitted for placement as well but the patient herself defers at this time. He requests Bumex be increased, the patient be started on Bactrim which Dr. matos had already started 2 days prior but the patient has not taken, and request pain control Been made aware of her refusal for admission risks and benefits as well After performing a Medical Screening Examination, I spoke with the patient at length in regards to leaving the hospital against medical advice. I do not believe the patient should leave but the patient is alert oriented x4, understands the risks and benefits of staying and leaving including disability and . Pt understands that he can return at any time for further care and is more than welcome to do so. Pt verbalizes this understanding. 11/02/16 07:53 - Vital Signs Vital signs: Temp Pulse Resp BP Pulse Ox 98.6 F 101 H 28 H 126/55 H 95 11/02/16 03:12 11/02/16 03:12 11/02/16 03:12 11/02/16 03:12 11/02/16 05:38 - Laboratory Result Diagrams: 11/02/16 05:25 11/02/16 05:25 Laboratory results interpreted by me: 11/02/16 11/02/16 05:25 05:25 WBC 13.8 H Hgb 10.4 L Hct 33.1 L MCH 26.4 L MCHC 31.4 L RDW 16.3 H Seg Neutrophils % 80.0 H Absolute Neutrophils 11.1 H Carbon Dioxide 36 H Anion Gap 4 L BUN 22 H Discharge - Discharge Clinical Impression: Anxiety, COPD exacerbation, Abdominal wall cellulitis Acute CHF (congestive heart failure) Qualifiers: Congestive heart failure type: diastolic Qualified Code(s): I50.31 - Acute diastolic (congestive) heart failure Condition: Stable Disposition: HOME, SELF-CARE Instructions: Congestive Heart Failure ([facility]) Additional Instructions: Follow up with your physician tomorrow for further care or return to the ED IMMEDIATELY if symptoms worsen or new concerns occur. If you cannot afford to follow up with your primary care physician a list of low cost clinics have been provided at the end of your discharge papers as well. Prescriptions: Bumetanide [Bumex 2 mg Tablet] 1 tab PO BID #60 tab Oxycodone HCl/Acetaminophen [Percocet 5-325 mg Tablet] 1 - 2 tab PO Q4H PRN #15 tablet PRN Reason:
[2016-11-02 09:54] VITALS: BP 138/51
== END 2016-11-02 09:58 | disposition home or self-care (01) ==
LOC: ER 02:44
DX: F41.9 Anxiety disorder, unspecified (principal); J44.1 Chronic obstructive pulmonary disease with (acute) exacerbation; L03.311 Cellulitis of abdominal wall; I50.31 Acute diastolic (congestive) heart failure; F17.210 Nicotine dependence, cigarettes, uncomplicated; E78.00 Pure hypercholesterolemia, unspecified; I11.0 Hypertensive heart disease with heart failure; E66.01 Morbid (severe) obesity due to excess calories; E11.9 Type 2 diabetes mellitus without complications; K21.9 Gastro-esophageal reflux disease without esophagitis; Z86.14 Personal history of Methicillin resistant Staphylococcus aureus infection; Z93.0 Tracheostomy status; Z88.6 Allergy status to analgesic agent; Z68.43 Body mass index [BMI] 50.0-59.9, adult
CPT/HCPCS: 99406; 94640 ×2; 99284; 36415; 85025; 80048; J7620

== ENCOUNTER 2016-11-03 21:47 | Emergency (ER) | payer MEDICAID ==
--- NOTE | 2016-11-03 23:04 | ER Document Report ---
ED General - General Chief Complaint: Shortness Of Breath Stated Complaint: BREATHING PROBLEMS Time Seen by Provider: 11/03/16 22:51 Mode of Arrival: Medic Information source: Patient TRAVEL OUTSIDE OF THE [place] IN LAST 30 DAYS: No - HPI Notes: Patient is a profoundly morbidly obese 50-year-old female history of chronic panniculitis and CHF and atrial fibrillation comes in with report that she has continued to smoke and has had some dyspnea and mildly productive cough and requests diuretics and antibiotics. The patient reportedly had her Bumex increased recently, but it is questionable as to whether not she has taken this. The patient had a tracheal culture on 10/20/16 which grew Pseudomonas and Proteus both responsive to Cipro, but I cannot see where she was placed upon Cipro. She was recommended for Bactrim, but only the Proteus was responsive on the culture. The patient reports no change in her urine output. She denies any diarrhea. She reports no chest pain. She refuses to be placed in a residential, as it will not allow her to smoke. I had a long discussion with the patient about her chronic end-stage morbidities and she still requests to be a full code. - Related Data Allergies/Adverse Reactions: ziprasidone HCl [From Geodon] Allergy (Mild, Verified 10/27/16 15:00) itching acetaminophen [Acetaminophen] Adverse Reaction (Unknown, Verified 10/27/16 15:00 ) Past Medical History - General Information source: Patient - Social History Smoking Status: Current Every Day Smoker Frequency of alcohol use: None Drug Abuse: None Lives with: Family Family History: Reviewed & Not Pertinent, CAD, DM, Hypertension - Past Medical History Cardiac Medical History: Reports: Hx Atrial Fibrillation, Hx Congestive Heart Failure, Hx Coronary Artery Disease, Hx Hypercholesterolemia, Hx Hypertension, Hx Heart Murmur Denies: Hx DVT, Hx Pulmonary Embolism Pulmonary Medical History: Reports: Hx Asthma, Hx Bronchitis, Hx COPD, Hx Pneumonia, Hx Intubation, Hx Respiratory Failure, Hx Sleep Apnea Neurological Medical History: Denies: Hx Seizures Endocrine Medical History: Reports: Hx Diabetes Mellitus Type 2. Denies: Hx Diabetes Mellitus Type 1, Hx Hyperthyroidism, Hx Hypothyroidism Renal/ Medical History: Reports: Hx Renal Insufficiency GI Medical History: Reports: Hx Gastroesophageal Reflux Disease, Hx Hiatal Hernia. Denies: Hx Cirrhosis, Hx Hepatitis Musculoskeltal Medical History: Reports Hx Arthritis, Reports Hx Fibromyalgia Psychiatric Medical History: Reports: Hx Attention Deficit Hyperactivity Disorder, Hx Bipolar Disorder, Hx Depression Traumatic Medical History: Reports: Hx Fractures Infectious Medical History: Reports: Hx C-Diff, Hx MRSA. Denies: Hx Hepatitis Past Surgical History: Reports: Hx Appendectomy, Hx Tonsillectomy, Other - Permanent tracheostomy - Immunizations Hx Diphtheria, Pertussis, Tetanus Vaccination: Yes Hx Pneumococcal Vaccination: 05/06/09 Review of Systems - Review of Systems Notes: REVIEW OF SYSTEMS: CONSTITUTIONAL : Denies fever, chills, or sweats. EENT: Denies eye, ear, throat, or mouth pain or symptoms. Denies nasal or sinus congestion or discharge. Denies throat, tongue, or mouth swelling or difficulty swallowing. CARDIOVASCULAR: Denies chest pain. Denies palpitations or racing or irregular heart beat. Denies ankle edema. RESPIRATORY: patient reports cough, congestion, and chronic wheezing. She reports occasional productive cough. GASTROINTESTINAL: Denies any change in her chronic abdominal pain. Denies nausea, vomiting, or diarrhea. Denies blood in vomitus, stools, or per rectum. Denies black, tarry stools. Denies constipation. Patient reports chronic distention of the abdomen which is unchanged. GENITOURINARY: Denies difficulty urinating, painful urination, burning, frequency, blood in urine, or discharge. FEMALE GENITOURINARY: Denies vaginal bleeding, heavy or abnormal periods, irregular periods. Denies vaginal discharge or odor. L: Denies back or neck pain or stiffness. Denies joint pain or swelling. SKIN: Denies any new rash, lesions or sores beyond her baseline regarding her chronic panniculitis. HEMATOLOGIC : Denies easy bruising or bleeding. LYMPHATIC: Denies swollen, enlarged glands. NEUROLOGICAL: Denies confusion or altered mental status. Denies passing out or loss of consciousness. Denies dizziness or lightheadedness. Denies headache. Denies weakness or paralysis or loss of use of either side. Denies problems with gait or speech. Denies sensory loss, numbness, or tingling. Denies seizures. PSYCHIATRIC: Denies anxiety or stress. Denies depression, suicidal ideation, or homicidal ideation. ALL OTHER SYSTEMS REVIEWED AND NEGATIVE. Dictation was performed using [employer] voice recognition software Physical Exam - Vital signs Vitals: Pulse Ox 97 11/03/16 21:50 - Notes Notes: PHYSICAL EXAMINATION: GENERAL: No obvious distress sleeping, easily aroused. HEAD: Atraumatic, normocephalic. EYES: Pupils equal round and reactive to light, extraocular movements intact, conjunctiva are normal. ENT: Nares patent, oropharynx clear without exudates. Moist mucous membranes. No obvious JVD. NECK: Normal range of motion, supple without lymphadenopathy. No obvious JVD. LUNGS: Breath sounds coarse bilaterally with wheezes. No significant rales. HEART: Regular rate and rhythm without murmurs ABDOMEN: Soft, no deep tenderness, but the patient has chronic tenderness with mild erythema to the pannus which she states is unchanged. Female : deferred Musculoskeletal: Normal range of motion, 2+ bilateral lower extremity pitting edema. No cyanosis. NEUROLOGICAL: Cranial nerves grossly intact. Normal speech, normal gait. Normal sensory, motor exams. Patient is conversant and alert and oriented 3. PSYCH: Normal mood, normal affect. SKIN: Warm, Dry, normal turgor, no rashes or lesions noted. Course - Re-evaluation Re-evalutation: 11/04/16 00:47 I discussed at length a DNR status with the patient, but she stated she still wanted to be full code. A informed the patient that she needed to go to a nursing home facility, but she was adamant that she was able to go home and that she had family to take care of her at home with her [id number], and she refused to go to a nursing facility. Patient did admit to still smoking and she was counseled at length regarding quitting smoking. The patient understands she could not smoke at a nursing facility or if she gets admitted to the hospital again, so she is refusing admission and nursing facility referral. Patient was kept on her regular 6 L of humidified oxygen with her trach collar and she maintained appropriate oxygen saturations and she remained alert without clinical suggestion for hypercarbia. Patient was given appropriate trach care and suctioning. Based upon previous culture results, the patient was given Levaquin by mouth. For the patient's COPD, patient was given prednisone 60 mg by mouth. A DuoNeb was given with improvement in the patient's wheezing. 11/04/16 01:18 Question raised pneumonia on chest x-ray. Patient's afebrile, and her white blood cell count at 17 is consistent with previous values. Oxygen saturation stable on her usual 6 L humidified oxygen, and the patient is still alert. Discussion was undertaken with the patient about admission to the hospital, but she politely refused and requested to go home. I informed the patient that this could potentially be dangerous given her possible pneumonia, and she understood those risks and still requested to go home. No obvious evidence for congestive heart failure with improved BNP from previous values. No significant anemia or electrolyte imbalance. Patient is given Levaquin by mouth. 11/04/16 02:09 - Vital Signs Vital signs: Temp Pulse Resp BP Pulse Ox 98.4 F 148/60 H 89 L 11/03/16 22:07 11/04/16 00:01 11/04/16 00:45 - Laboratory Result Diagrams: 11/04/16 00:18 11/04/16 00:18 Laboratory results interpreted by me: 11/04/16 11/04/16 11/04/16 00:18 00:18 00:18 WBC 17.9 H Hgb 11.3 L Hct 35.1 L MCH 26.7 L RDW 16.1 H Seg Neutrophils % 86.0 H Lymphocytes % 7.7 L Absolute Neutrophils 15.4 H Sodium 135.2 L Chloride 89 L Carbon Dioxide 40 H* Glucose 135 H AST 12 L NT-Pro-B Natriuret Pep 227 H Total Protein 6.0 L Albumin 3.2 L Discharge - Discharge Clinical Impression: COPD with acute exacerbation Pneumonia Qualifiers: Pneumonia type: due to unspecified organism Laterality: bilateral Lung location : lower lobe of lung Qualified Code(s): J18.9 - Pneumonia, unspecified organism Condition: Fair Disposition: HOME, SELF-CARE Instructions: Pneumonia ([facility]), Chronic Obstructive Lung Disease ([facility]) Additional Instructions: Use your oxygen and nebulizer treatments as previously instructed. Prescriptions: Levofloxacin [Levaquin 750 mg Tablet] 750 mg PO DAILY #10 tablet
[2016-11-03] MEDS ORDERED: IPRATROPIUM/ALBUTEROL 0.5-2.5 MG/3 ML AMPUL NEB ONE (23:17)
[2016-11-03] MEDS ORDERED: METHYLPREDNISOLONE INJ 125 MG/2 ML SDV IV ONE (23:19)
[2016-11-03] MEDS ORDERED: PREDNISONE 20 MG TABLET PO ONE (23:38)
[2016-11-03] MEDS ORDERED: LEVOFLOXACIN 750 MG TABLET PO ONE (23:39)
[2016-11-03] MEDS ORDERED: BUMETANIDE 1 MG TABLET PO ONE (23:40)
--- NOTE | 2016-11-03 23:46 | RADIOLOGY REPORT (SQ) ---
EXAM DESCRIPTION: CHEST SINGLE VIEW COMPLETED DATE/TIME: 11/03/2016 11:37 pm REASON FOR STUDY: cough, dyspnea COMPARISON: 10/31/2016 EXAM PARAMETERS: NUMBER OF VIEWS: One view. TECHNIQUE: Single frontal radiographic view of the chest acquired. RADIATION DOSE: NA LIMITATIONS: None. FINDINGS: LUNGS AND PLEURA: Patchy bibasilar densities are identified which have the appearance of p atchy pneumonic infiltrates. No pleural effusions are identified. MEDIASTINUM AND HILAR STRUCTURES: No masses. Contour normal. HEART AND VASCULAR STRUCTURES: Cardiac silhouette remains enlarged. BONES: No acute findings. HARDWARE: Tracheostomy tube is unchanged in position. OTHER: No other significant finding. IMPRESSION: Bibasilar densities as noted above. TECHNICAL DOCUMENTATION: JOB ID: [id number]
[2016-11-04 00:28] LABS: ABSOLUTE BASOPHILS # (AUTO) 0.1 10^3/uL (0.0-0.2); ABSOLUTE EOSINOPHILS # (AUTO) 0.1 10^3/uL (0.0-0.6); ABSOLUTE LYMPHOCYTES (AUTO) 1.4 10^3/uL (0.5-4.7); ABSOLUTE MONOCYTES (AUTO) 0.9 10^3/uL (0.1-1.4); ABSOLUTE NEUT (AUTO) 15.4 10^3/uL (1.7-8.2); BASOPHILS % (AUTO) 0.4 % (0-2); EOSINOPHILS % (AUTO) 0.6 % (0-6); HEMATOCRIT 35.1 % (36.0-47.0); HEMOGLOBIN 11.3 g/dL (12.0-15.5); HGB HCT DIFFERENCE -1.2; LYMPHOCYTES % (AUTO) 7.7 % (13-45); MEAN CORPUSCULAR HEMOGLOBIN 26.7 pg (27.0-33.4); MEAN CORPUSCULAR HGB CONC 32.3 g/dL (32.0-36.0); MEAN CORPUSCULAR VOLUME 83 fl (80-97); MONOCYTES % (AUTO) 5.3 % (3-13); RED BLOOD COUNT 4.25 10^6/uL (3.72-5.28); RED CELL DISTRIBUTION WIDTH 16.1 % (11.5-14.0); WHITE BLOOD COUNT 17.9 10^3/uL (4.0-10.5)
[2016-11-04 00:44] LABS: ALANINE AMINOTRANSFERASE 33 U/L (9-52); ALBUMIN 3.2 g/dL (3.5-5.0); ALKALINE PHOSPHATASE 87 U/L (38-126); ASPARTATE AMINO TRANSFERASE 12 U/L (14-36); BILIRUBIN,DIRECT 0.3 mg/dL (0.0-0.4); BILIRUBIN,TOTAL 0.6 mg/dL (0.2-1.3); BLOOD UREA NITROGEN 20 mg/dL (7-20); CALCIUM 8.7 mg/dL (8.4-10.2); CHLORIDE 89 mmol/L (98-107); CREATININE RESULT 0.66 mg/dL (0.52-1.25); GLUCOSE 135 mg/dL (75-110); MAGNESIUM 1.8 mg/dL (1.6-2.3); POTASSIUM 3.7 mmol/L (3.6-5.0); SODIUM 135.2 mmol/L (137-145)
[2016-11-04 00:45] LABS: ANION GAP 6 (5-19)
[2016-11-04 00:52] LABS: CARBON DIOXIDE 40 mmol/L (22-30)
[2016-11-04 00:55] LABS: TROPONIN I 0.018 ng/mL
[2016-11-04] MEDS ORDERED: IPRATROPIUM/ALBUTEROL 0.5-2.5 MG/3 ML AMPUL NEB ONE (01:31)
[2016-11-04 03:12] VITALS: BP 135/92
== END 2016-11-04 04:00 | disposition home or self-care (01) ==
LOC: ER 21:47
DX: J44.0 Chronic obstructive pulmonary disease with (acute) lower respiratory infection (principal); J18.9 Pneumonia, unspecified organism; J44.1 Chronic obstructive pulmonary disease with (acute) exacerbation; I25.10 Atherosclerotic heart disease of native coronary artery without angina pectoris; I10 Essential (primary) hypertension; E11.9 Type 2 diabetes mellitus without complications; R14.0 Abdominal distension (gaseous); R10.9 Unspecified abdominal pain; G89.29 Other chronic pain; E66.01 Morbid (severe) obesity due to excess calories; Z68.43 Body mass index [BMI] 50.0-59.9, adult; R05 Cough; F17.200 Nicotine dependence, unspecified, uncomplicated; Z71.6 Tobacco abuse counseling; Z88.8 Allergy status to other drugs, medicaments and biological substances; Z82.49 Family history of ischemic heart disease and other diseases of the circulatory system; Z99.81 Dependence on supplemental oxygen; Z43.0 Encounter for attention to tracheostomy
CPT/HCPCS: 94640 ×2; 99285; 36415; 83735; 85025; 80053; 84484; 83880; 71010; J3490 ×2; J7512; J7620

== ENCOUNTER 2016-11-04 11:46 | Inpatient (IN) | payer MEDICAID ==
--- NOTE | 2016-11-04 12:46 | ER Document Report ---
ED Medical Screen (RME) - General Chief Complaint: Breathing Difficulty Stated Complaint: DIFFICULTY BREATHING Time Seen by Provider: 11/04/16 12:30 Notes: This profoundly morbidly obese 50-year-old oxygen dependent COPD smoker comes emergency room 24th visit in 5 days. She was to be admitted and kept here long enough to get some of the edema out of her thighs. She states the edema is making her breathing worse. I have greeted and performed a rapid initial assessment of this patient. A comprehensive ED assessment and evaluation of the patient, analysis of test results and completion of the medical decision making process will be conducted by additional ED providers. TRAVEL OUTSIDE OF THE [place] IN LAST 30 DAYS: No - Related Data Allergies/Adverse Reactions: ziprasidone HCl [From Geodon] Allergy (Mild, Verified 10/27/16 15:00) itching acetaminophen [Acetaminophen] Adverse Reaction (Unknown, Verified 10/27/16 15:00 ) Past Medical History - Past Medical History Cardiac Medical History: Reports: Hx Atrial Fibrillation, Hx Congestive Heart Failure, Hx Coronary Artery Disease, Hx Hypercholesterolemia, Hx Hypertension, Hx Heart Murmur Denies: Hx DVT, Hx Pulmonary Embolism Pulmonary Medical History: Reports: Hx Asthma, Hx Bronchitis, Hx COPD, Hx Pneumonia, Hx Intubation, Hx Respiratory Failure, Hx Sleep Apnea Neurological Medical History: Denies: Hx Seizures Endocrine Medical History: Reports: Hx Diabetes Mellitus Type 2. Denies: Hx Diabetes Mellitus Type 1, Hx Hyperthyroidism, Hx Hypothyroidism Renal/ Medical History: Reports: Hx Renal Insufficiency. Denies: Hx Peritoneal Dialysis GI Medical History: Reports: Hx Gastroesophageal Reflux Disease, Hx Hiatal Hernia. Denies: Hx Cirrhosis, Hx Hepatitis Musculoskeltal Medical History: Reports Hx Arthritis, Reports Hx Fibromyalgia Psychiatric Medical History: Reports: Hx Attention Deficit Hyperactivity Disorder, Hx Bipolar Disorder, Hx Depression Traumatic Medical History: Reports: Hx Fractures Infectious Medical History: Reports: Hx C-Diff, Hx MRSA. Denies: Hx Hepatitis Past Surgical History: Reports: Hx Appendectomy, Hx Tonsillectomy, Other - Permanent tracheostomy - Immunizations Hx Diphtheria, Pertussis, Tetanus Vaccination: Yes Physical Exam - Vital signs Vitals: Temp Pulse Resp BP Pulse Ox 97.9 F 106 H 21 H 141/66 H 94 11/04/16 12:01 11/04/16 12:01 11/04/16 12:01 11/04/16 12:01 11/04/16 12:01 Course - Vital Signs Vital signs: Temp Pulse Resp BP Pulse Ox 97.9 F 106 H 21 H 141/66 H 94 11/04/16 12:01 11/04/16 12:01 11/04/16 12:01 11/04/16 12:01 11/04/16 12:01
[2016-11-04] MEDS ORDERED: LORAZEPAM 0.5 MG TABLET PO ONE (16:07)
--- NOTE | 2016-11-04 16:20 | ER Document Report ---
ED General - General Chief Complaint: Breathing Difficulty Stated Complaint: DIFFICULTY BREATHING Time Seen by Provider: 11/04/16 12:30 TRAVEL OUTSIDE OF THE [place] IN LAST 30 DAYS: No - HPI Notes: Patient with h/o CHF, oxygen dependent COPD, and abdominal panniculitis comes to the ED c/o worsening abdominal swelling x2 weeks with continued SOB and worsening redness/discharge to her rt abdomen from her panniculitis. Pt states she wants to be admitted to get the fluid off of her abdomen to help her breathing. Pt states that the fluid build-up in her abdomen is causing her skin to tear in the abdomen as well. She has been taking two tabs of her Bumex twice yesterday with no relief. She is still eating/drinking, but does have a dec appetite. Pt states that she is also anxious and does not have her ativan on her. Pt takes Ativan 0.5mg prn. Pt states she continues to have normal urinary habits and BM's. Pt states that her left leg swelling has not changed since her last few visits. Pt was placed on levaquin for her suspected pneumonia and infection of the trach. Denies any fever, headaches, URI, sore throat, cp, palp, syncope, n/v/d, dysuria, muscle weakness/paralysis. Patient has come to the ED about 5 times in the last week, most of which for similar symptoms. - Related Data Allergies/Adverse Reactions: ziprasidone HCl [From Geodon] Allergy (Mild, Verified 10/27/16 15:00) itching acetaminophen [Acetaminophen] Adverse Reaction (Unknown, Verified 10/27/16 15:00 ) Past Medical History - Social History Smoking Status: Current Every Day Smoker Family History: Reviewed & Not Pertinent, CAD, DM, Hypertension Patient has suicidal ideation: No Patient has homicidal ideation: No - Past Medical History Cardiac Medical History: Reports: Hx Atrial Fibrillation, Hx Congestive Heart Failure, Hx Coronary Artery Disease, Hx Hypercholesterolemia, Hx Hypertension, Hx Heart Murmur Denies: Hx DVT, Hx Pulmonary Embolism Pulmonary Medical History: Reports: Hx Asthma, Hx Bronchitis, Hx COPD, Hx Pneumonia, Hx Intubation, Hx Respiratory Failure, Hx Sleep Apnea Neurological Medical History: Denies: Hx Seizures Endocrine Medical History: Reports: Hx Diabetes Mellitus Type 2. Denies: Hx Diabetes Mellitus Type 1, Hx Hyperthyroidism, Hx Hypothyroidism Renal/ Medical History: Reports: Hx Renal Insufficiency. Denies: Hx Peritoneal Dialysis GI Medical History: Reports: Hx Gastroesophageal Reflux Disease, Hx Hiatal Hernia. Denies: Hx Cirrhosis, Hx Hepatitis Musculoskeltal Medical History: Reports Hx Arthritis, Reports Hx Fibromyalgia Psychiatric Medical History: Reports: Hx Attention Deficit Hyperactivity Disorder, Hx Bipolar Disorder, Hx Depression Traumatic Medical History: Reports: Hx Fractures Infectious Medical History: Reports: Hx C-Diff, Hx MRSA. Denies: Hx Hepatitis Past Surgical History: Reports: Hx Appendectomy, Hx Tonsillectomy, Other - Permanent tracheostomy - Immunizations Hx Diphtheria, Pertussis, Tetanus Vaccination: Yes Hx Pneumococcal Vaccination: 05/06/09 Review of Systems - Review of Systems Notes: REVIEW OF SYSTEMS: CONSTITUTIONAL : Denies fever, chills, or sweats. Denies recent illness. EENT: Denies eye, ear, throat, or mouth pain or symptoms. Denies nasal or sinus congestion or discharge. Denies throat, tongue, or mouth swelling or difficulty swallowing. CARDIOVASCULAR: Denies chest pain. Denies palpitations or racing or irregular heart beat. Denies ankle edema. RESPIRATORY: see hpi GASTROINTESTINAL: see hpi GENITOURINARY: Denies difficulty urinating, painful urination, burning, frequency, blood in urine, or discharge. MUSCULOSKELETAL: Denies back or neck pain or stiffness. Denies joint pain or swelling. SKIN: see hpi NEUROLOGICAL: Denies confusion or altered mental status. Denies passing out or loss of consciousness. Denies dizziness or lightheadedness. Denies headache. Denies weakness or paralysis or loss of use of either side. Denies problems with gait or speech. Denies sensory loss, numbness, or tingling. Denies seizures. PSYCHIATRIC: Denies anxiety or stress. Denies depression, suicidal ideation, or homicidal ideation. ALL OTHER SYSTEMS REVIEWED AND NEGATIVE. Dictation was performed using [employer] voice recognition software Physical Exam - Vital signs Vitals: Temp Pulse Resp BP Pulse Ox 97.9 F 106 H 21 H 141/66 H 94 11/04/16 12:01 11/04/16 12:01 11/04/16 12:01 11/04/16 12:01 11/04/16 12:01 Notes: PHYSICAL EXAMINATION: GENERAL: Well-appearing, well-nourished and in no acute distress, mobidly obese HEAD: Atraumatic, normocephalic. EYES: Pupils equal round and reactive to light, extraocular movements intact, sclera anicteric, conjunctiva are normal. ENT: EAC clear b/l. TM's intact b/l without erythema, fluid, or perforation. Nares patent and without discharge. oropharynx clear without exudates. No tonsilar hypertrophy or erythema. Moist mucous membranes. No sinus tenderness. NECK: Normal range of motion, supple without lymphadenopathy. No rigidity. Trach/trach collar in place. LUNGS: mild expiratory wheezes b/l. Minimal rhonchi b/l. HEART: Regular rate and rhythm without murmurs, rubs, gallops. ABDOMEN: Soft, nondistended abdomen. No guarding, no rebound. No masses appreciated. Normal bowel sounds present. No CVA tenderness bilaterally. + large abdomen with erythema to the rt crease (large area) and clear/cloudy discharge. + warmth and tenderness. No abscess. Musculoskeletal: FROM to passive/active. Strength 5+/5. Extremities: No cyanosis, clubbing. LE has 2+ edema. Rt has trace pitting edema. Peripheral pulses 2+. Capillary refill less than 3 seconds. NEUROLOGICAL: Cranial nerves grossly intact. Normal speech, normal gait. Normal sensory, motor exams PSYCH: Normal mood, normal affect. SKIN: see abd. Course - Re-evaluation Re-evalutation: 11/04/16 18:[address] Hernandez and Dr. Bobo (hospitalist): Pt to be admitted for CHF exacerbation and COPD exacerbation. Pt in agreement with plan. Pt was found to be tachycardic and tachypneic as well. Pt to follow instruction per Hospitalist. See Hospitalist H&P. - Vital Signs Vital signs: Temp Pulse Resp BP Pulse Ox 97.9 F 106 H 21 H 145/74 H 100 11/04/16 12:01 11/04/16 12:01 11/04/16 12:01 11/04/16 18:40 11/04/16 18:40 - Laboratory Laboratory results interpreted by me: 11/04/16 18:09 Carbonic Acid 2.22 H ABG pCO2 73.7 H* ABG pO2 37.5 L* ABG HCO3 49.5 H ABG Total CO2 51.8 H ABG O2 Saturation 70.5 L Discharge - Discharge Clinical Impression: CHF exacerbation Qualifiers: Congestive heart failure type: unspecified congestive heart failure type Qualified Code(s): I50.9 - Heart failure, unspecified Acute and chronic respiratory failure ([id number]) Qualifiers: Respiratory failure complication: hypoxia and hypercapnia Qualified Code(s): J96.21 - Acute and chronic respiratory failure with hypoxia Condition: Stable Disposition: ADMITTED INPATIENT Referrals: LOCALSD,NO [Primary Care Provider] - Follow up as needed
--- NOTE | 2016-11-04 18:23 | PDOC H&P ---
History of Present Illness Admission Date/PCP: 11/04/16; Danica Jerry NO LOCALMO History of Present Illness: NEENA ISLAS is a 50 year old female appears to have chronic right-sided heart failure. This appears to be primarily respiratory from a long history of COPD. The patient is home ventilator dependent. She sees Dr. Mackenzie as her awning finisher and Dr. Danica jerry as her primary care provider. She has been prescribed home ventilation for years, but, she does not use the machine at night because she has panic attacks. She feels that she is able to wear the machine in the hospital. Today, the patient presented to the hospital with increased swelling of her pannus. Due to increased swelling the patient has had more irritation and bleeding. She has not had any fevers or chills. She does report hot flashes which are chronic. 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 Her presentation is also significant in that she has been having panic attacks and is currently according to the ER notes without her Ativan. Otherwise on review of systems she has lightheadedness, abdominal pain in the areas where there is skin breakdown over the past. She is moving her bowels normally. She has no nausea or vomiting. She has no trouble urinating. She has a chronic indwelling Ceja catheter that is changed out once per month. She has not had any headaches or visual changes. She has not had any trouble with her trach. She has not had any trouble swallowing. She did not report increased shortness of breath to me at this time. Past Medical History Cardiac Medical History: Reports: Atrial Fibrillation, Congestive Heart Failure , Coronary Artery Disease, Hyperlipidema, Hypertension, Heart Murmur Denies: DVT, Pulmonary Embolism Pulmonary Medical History: Reports: Asthma, Bronchitis, Chronic Obstructive Pulmonary Disease (COPD), Intubation, Pneumonia, Respiratory Failure, Sleep Apnea Neurological Medical History: Denies: Seizures Endocrine Medical History: Reports: Diabetes Mellitus Type 2 Denies: Diabetes Mellitus Type 1, Hyperthyroidism, Hypothyroidism GI Medical History: Reports: Gastroesophageal Reflux Disease, Hiatal Hernia Denies: Cirrhosis, Hepatitis Musculoskeltal Medical History: Reports: Arthritis, Fibromyalgia Psychiatric Medical History: Reports: Attention Deficit Hyperactivity Disorder, Bipolar Disorder, Depression Infectious Medical History: Reports: Clostridium Difficile, Methicillin- Resistant Staph Aureus Past Surgical History Past Surgical History: Reports: Appendectomy, Tonsillectomy, Other - Permanent tracheostomy Social History Smoking Status: Unknown if Ever Smoked Frequency of Alcohol Use: None Hx Recreational Drug Use: No Drugs: None Hx Prescription Drug Abuse: No Family History Family History: Reviewed & Not Pertinent, CAD, DM, Hypertension Parental Family History Reviewed: Yes Children Family History Reviewed: NA Sibling(s) Family History Reviewed.: NA Medication/Allergy Home Medications: Albuterol Sulfate [Proair HFA] 2 puff IH Q6HP PRN 10/19/16 Albuterol Sulfate [Ventolin 0.083% Neb 2.5 mg/3 mL Ampul] 2.5 mg NEB RTQ4HP PRN 10/19/16 Amlodipine Besylate [Norvasc 5 mg Tablet] 5 mg PO Q12 10/19/16 Bumetanide [Bumex 1 mg Tablet] 1 mg PO Q12 10/19/16 Gabapentin [Neurontin 300 mg Capsule] 300 mg PO Q12 10/19/16 Lorazepam [Ativan 0.5 mg Tablet] 0.5 mg PO Q12HP PRN 10/19/16 Lurasidone HCl [Latuda] 60 mg PO Q12 10/19/16 Metformin HCl [Glucophage] 1,000 mg PO BIDBS 10/19/16 Metoprolol Succinate [Toprol Xl 50 mg Tab.sr] 50 mg PO DAILY 10/19/16 Nystatin [Mycostatin Cream 15 gm] 1 applic TOP Q12 10/19/16 Nystatin [Mycostatin Topical Powder 15 gm] 1 applic TOP Q12 10/19/16 Omeprazole 40 mg PO DAILY 10/19/16 Sucralfate [Carafate 1 gm Tablet] 1 gm PO ACHS 10/19/16 Trazodone HCl [Desyrel] 100 mg PO HSP PRN 10/19/16 Docusate Sodium [Colace 100 mg Capsule] 100 mg PO BID #60 capsule 10/22/16 Levofloxacin [Levaquin 750 mg Tablet] 750 mg PO DAILY #10 tablet 10/22/16 Prednisone [Deltasone 20 mg Tablet] 40 mg PO DAILY #20 tablet 10/22/16 Cephalexin Monohydrate [Keflex 500 mg Capsule] 1,000 mg PO BID #28 capsule 10/31 Sulfamethoxazole/Trimethoprim [Bactrim Ds Tablet] 1 each PO BID #14 tablet 10/31 Bumetanide [Bumex 2 mg Tablet] 1 tab PO BID #60 tab 11/02/16 Oxycodone HCl/Acetaminophen [Percocet 5-325 mg Tablet] 1 - 2 tab PO Q4H PRN #15 tablet 11/02/16 Levofloxacin [Levaquin 750 mg Tablet] 750 mg PO DAILY #10 tablet 11/04/16 Allergies/Adverse Reactions: ziprasidone HCl [From Geodon] Allergy (Mild, Verified 10/27/16 15:00) itching acetaminophen [Acetaminophen] Adverse Reaction (Unknown, Verified 10/27/16 15:00 ) Review of Systems Constitutional: PRESENT: as per HPI Eyes: PRESENT: as per HPI Ears: PRESENT: as per HPI Nose, Mouth, and Throat: PRESENT: as per HPI Breasts: PRESENT: as per HPI Cardiovascular: PRESENT: as per HPI Respiratory: PRESENT: as per HPI Gastrointestinal: PRESENT: as per HPI Genitourinary: PRESENT: as per HPI Musculoskeletal: PRESENT: as per HPI Integumentary: PRESENT: as per HPI Neurological: PRESENT: as per HPI Psychiatric: PRESENT: as per HPI Physical Exam Vital Signs: Temp Pulse Resp BP Pulse Ox 97.9 F 106 H 21 H 141/66 H 94 11/04/16 12:01 11/04/16 12:01 11/04/16 12:01 11/04/16 12:01 11/04/16 12:01 Intake & Output 11/03/16 11/04/16 11/05/16 06:59 06:59 06:59 Weight 156.036 kg Additional comments: Patient appears much older than her stated age of 50. Her facial appearance is noteworthy for male pattern hair. She has a mustache and hewitt. The patient is edentulous. Her mucous membranes are slightly dry. She has no lesions on her lip or tongue. She has no exudates in her mouth. Her neck is supple. There is no lymphadenopathy. Trachea is midline. Patient has a well-healed tracheostomy in place. She has a little bit of brown material around the tracheostomy but no purulent exudate. The patient's lungs demonstrate subtle wheezing in all lung gold both anteriorly and posteriorly. Patient's cardiac exam demonstrates a regular rate and rhythm without murmurs, gallops or rubs. The patient's abdomen is significant for a large pannus. On the anterior surface of the pannus the skin is normal. On the underneath surface of the pannus the patient does have a significant amount of erythema with mild skin breakdown. The abrasion appears to be secondary to friction from her skin rubbing. This area does not appear to be purulent or superinfected at this time. In the vaginal and skin folds of the inguinal areas the patient does appear to have some superficial Xiao. The lower extremities are warm to touch. Patient does not have any significant edema while lying supine in the lower extremities. The skin is otherwise warm dry and intact without lesions or rashes. Results Laboratory Results: Supportive data did not pull into the note. Patient's white blood cell count is 17.9. The hemoglobin is 11.3. Heme hematocrit is 35.1. Platelet count is 168. Sodium is 135, potassium 3.7, chloride 89, bicarbonate 40, BUN 20, creatinine 0.66 and glucose is 135. Total bilirubin is 0.6. LFTs are normal. And he pro B and P is mildly elevated at 227. Total protein is 6 and albumin is 3.2. By report I was told that a chest x-ray demonstrates bibasilar infiltrates. The report is not yet available for review. The film has not yet been incorporated into [facility]. Therefore, I have not been able to review the film. Assessment & Plan - Diagnosis (1) Acute and chronic respiratory failure ([id number]) Qualifiers: Respiratory failure complication: hypoxia and hypercapnia Qualified Code(s): J96.21 - Acute and chronic respiratory failure with hypoxia Is this a current diagnosis for this admission?: Yes (2) Lymphedema Is this a current diagnosis for this admission?: Yes (3) Wheezing Is this a current diagnosis for this admission?: Yes (4) COPD (chronic obstructive pulmonary disease) Qualifiers: COPD type: unspecified COPD Qualified Code(s): J44.9 - Chronic obstructive pulmonary disease, unspecified Is this a current diagnosis for this admission?: Yes (5) Diastolic CHF Is this a current diagnosis for this admission?: Yes (6) Tracheostomy dependence Is this a current diagnosis for this admission?: Yes (7) Leucocytosis Is this a current diagnosis for this admission?: Yes - Time Time Spent: 30 to 50 Minutes - Inpatient Certification Medical Necessity: Risk of Complication if Not Cared For in Hospital - Plan Summary Plan Summary: Patient will be admitted to the hospital secondary to acute on chronic hypercarbic respiratory failure. An ABG is pending at this time. However, the patient is clearly mentating appropriately. Her oxygen level seems to be adequate. In fact, we may need to lower the supplemental oxygen she received in the trach collar. I do not find evidence necessarily of an acute COPD exacerbation. I would like to treat the patient with her routine medications and bronchodilators but avoid systemic corticosteroids if possible. In addition , I do not feel that the patient is in decompensated heart failure. I suspect that the patient is becoming decompensated because she is not using her home ventilator at night. I do not think that she needs any additional Lasix. I am concerned about the patient's leukocytosis. I do think that we need to ensure blood and urine cultures are done. I will presumably treat the patient for cellulitis, although this is questionable as well. I cannot tell if the patient has a cellulitis or if this is just erythema from friction. Further imaging studies may be required. The patient also has a large anxiety component. She does live at home with a cosmetologist, but, she may be a patient that would benefit from permanent placement in a alf facility. This could facilitate her care significantly.
[2016-11-04] MEDS ORDERED: ACETAMINOPHEN 325 MG TABLET PO PRN (18:24)
[2016-11-04] MEDS ORDERED: MAGNESIUM HYDROXIDE SUSP 30 ML UDCUP PO PRN (18:24)
[2016-11-04] MEDS ORDERED: TEMAZEPAM 15 MG CAPSULE PO PRN (18:24)
[2016-11-04] MEDS ORDERED: MAG HYDROX/AL HYDROX/SIMETH SUSP 30 ML UDCUP PO PRN (18:24)
[2016-11-04] MEDS ORDERED: LORAZEPAM 0.5 MG TABLET PO PRN (18:34)
[2016-11-04] MEDS ORDERED: ALBUTEROL SULFATE HFA (90 MCG/PUFF) 8 GM MDI (1 MDI/ER DISP) IH PRN (18:34)
[2016-11-04] MEDS ORDERED: (PENDING PHARMACY ID) (Trazodone Hcl [Desyrel] 100 MG) PO PRN (18:34)
[2016-11-04 18:44] LABS: ARTERIAL BLOOD BASE EXCESS 21.6 mmol/L; ARTERIAL BLOOD O2 SATURATION 70.5 % (94-98)
[2016-11-04] MEDS ORDERED: TRAZODONE HCL 50 MG TABLET PO PRN (18:44)
[2016-11-04] MEDS ORDERED: GLUCAGON,HUMAN RECOMB 1 MG INJ IM PRN (18:53)
[2016-11-04] MEDS ORDERED: DEXTROSE 50%-WATER 25 GM/50 ML DISP.SYRIN IV PRN ×2 (18:53)
[2016-11-04] MEDS ORDERED: DEXTROSE 40% GEL 15 GM TUBE PO PRN ×2 (18:53)
[2016-11-04] MEDS ORDERED: INSULIN LISPRO 100 UNIT/ML 3 ML VIAL SUBCUT PRN (18:53)
--- NOTE | 2016-11-04 19:35 | RADIOLOGY REPORT (SQ) ---
EXAM DESCRIPTION: CHEST SINGLE VIEW COMPLETED DATE/TIME: 11/04/2016 7:22 pm REASON FOR STUDY: Respiratory failure COMPARISON: None. EXAM PARAMETERS: NUMBER OF VIEWS: One view. TECHNIQUE: Single frontal radiographic view of the chest acquired. RADIATION DOSE: NA LIMITATIONS: None. FINDINGS: LUNGS AND PLEURA: Increased opacity at the left lateral lung base. Right lung remains concepcion ar. No pneumothorax. MEDIASTINUM AND HILAR STRUCTURES: Stable. HEART AND VASCULAR STRUCTURES: Stable. BONES: No acute findings. HARDWARE: Tracheostomy. OTHER: No other significant finding. IMPRESSION: Increased opacity at the left lateral lung base. TECHNICAL DOCUMENTATION: JOB ID: [id number]
[2016-11-04] MEDS: ALBUTEROL SULFATE 0.083% NEB 2.5 MG/3 ML AMPUL NEB PRN (19:57)
[2016-11-04] MEDS ORDERED: ENOXAPARIN SODIUM INJ 40 MG/0.4 ML DISP.SYRIN SUBCUT ONE (20:00)
[2016-11-04] MEDS ORDERED: (PENDING PHARMACY ID) (Lurasidone Hcl [Latuda] 60 MG) PO SCH (22:00)
[2016-11-04] MEDS: AMOXICILLIN TR/POT CLAVULANATE 500-125 MG TAB PO SCH (22:10)
[2016-11-04] MEDS: SUCRALFATE 1 GM TABLET PO SCH (22:10)
[2016-11-04] MEDS: FAMOTIDINE 20 MG TABLET PO SCH (22:10)
[2016-11-04] MEDS: GABAPENTIN 300 MG CAPSULE PO SCH (22:10)
[2016-11-04] MEDS: AMLODIPINE BESYLATE 5 MG TABLET PO SCH (22:10)
[2016-11-04] MEDS: OXYCODONE-ACETAMINOPHEN 5-325 MG TABLET PO PRN (22:29)
[2016-11-04] MEDS ORDERED: BUMETANIDE 1 MG TABLET ONE (22:37)
[2016-11-04] MEDS ORDERED: NYSTATIN CREAM 15 GM ONE (22:38)
[2016-11-04] MEDS: NYSTATIN CREAM 15 GM TOP SCH (22:48)
[2016-11-04] MEDS: BUMETANIDE 1 MG TABLET PO SCH (22:48)
[2016-11-04] MEDS: NYSTATIN TOPICAL POWDER 15 GM TOP SCH (22:52)
[2016-11-04 23:24] LABS: APPEARANCE,URINE CLEAR; BILIRUBIN,URINE NEGATIVE (NEGATIVE); GLUCOSE, URINE NEGATIVE (NEGATIVE); KETONES,URINE NEGATIVE (NEGATIVE); LEUKOCYTE ESTERASE,URINE TRACE (NEGATIVE); NITRITE,URINE NEGATIVE (NEGATIVE); PROTEIN,URINE NEGATIVE (NEGATIVE); URINE SPECIFIC GRAVITY 1.015; UROBILINOGEN,URINE NEGATIVE mg/dL (<2.0)
[2016-11-05] MEDS: ALBUTEROL SULFATE 0.083% NEB 2.5 MG/3 ML AMPUL NEB PRN ×4 (04:22→21:02)
[2016-11-05 05:44] LABS: HEMATOCRIT 35.2 % (36.0-47.0); HEMOGLOBIN 11.2 g/dL (12.0-15.5); HGB HCT DIFFERENCE -1.6; MEAN CORPUSCULAR HEMOGLOBIN 26.9 pg (27.0-33.4); MEAN CORPUSCULAR HGB CONC 31.9 g/dL (32.0-36.0); MEAN CORPUSCULAR VOLUME 84 fl (80-97); RED BLOOD COUNT 4.18 10^6/uL (3.72-5.28); WHITE BLOOD COUNT 12.1 10^3/uL (4.0-10.5)
[2016-11-05 05:50] LABS: PROTHROMBIN TIME 13.5 SEC (11.4-15.4)
[2016-11-05 05:51] LABS: PARTIAL THROMBOPLASTIN TIME 37.5 SEC (23.5-35.8)
[2016-11-05 06:07] LABS: BLOOD UREA NITROGEN 22 mg/dL (7-20); CALCIUM 9.1 mg/dL (8.4-10.2); CHLORIDE 89 mmol/L (98-107); CHOLESTEROL 169.14 mg/dL (0-200); CREATININE RESULT 0.84 mg/dL (0.52-1.25); Direct HDL 49 mg/dL (>40); GLUCOSE 120 mg/dL (75-110); PHOSPHORUS 4.1 mg/dL (2.5-4.5); POTASSIUM 3.9 mmol/L (3.6-5.0); SODIUM 138.4 mmol/L (137-145); TRIGLYCERIDES 139 mg/dL (<150)
[2016-11-05 06:17] LABS: DIRECT LDL 104 mg/dL (<100)
[2016-11-05 06:33] LABS: ANION GAP 7 (5-19); CARBON DIOXIDE 42 mmol/L (22-30)
[2016-11-05] MEDS ORDERED: TEMAZEPAM 15 MG CAPSULE PO PRN (06:44)
[2016-11-05] MEDS: AMOXICILLIN TR/POT CLAVULANATE 500-125 MG TAB PO SCH ×3 (06:53→21:34)
[2016-11-05] MEDS: METFORMIN HCL 500 MG TABLET PO SCH ×2 (09:27→15:27)
[2016-11-05] MEDS: SUCRALFATE 1 GM TABLET PO SCH ×4 (09:28→21:34)
[2016-11-05] MEDS: LORAZEPAM 0.5 MG TABLET PO PRN (09:28)
[2016-11-05] MEDS ORDERED: DOCUSATE SODIUM 100 MG/10 ML UDC PO SCH (10:00)
[2016-11-05] MEDS ORDERED: PREDNISONE 20 MG TABLET PO SCH (10:00)
[2016-11-05] MEDS: OXYCODONE-ACETAMINOPHEN 5-325 MG TABLET PO PRN ×2 (10:39→18:50)
[2016-11-05] MEDS: FAMOTIDINE 20 MG TABLET PO SCH ×2 (10:40→21:34)
[2016-11-05] MEDS: DOCUSATE SODIUM 100 MG CAPSULE PO SCH ×2 (10:41→17:11)
[2016-11-05] MEDS: GABAPENTIN 300 MG CAPSULE PO SCH ×2 (10:41→21:34)
[2016-11-05] MEDS: AMLODIPINE BESYLATE 5 MG TABLET PO SCH ×2 (10:42→21:34)
[2016-11-05] MEDS: METOPROLOL SUCCINATE 50 MG TAB.SR.24H PO SCH (10:43)
[2016-11-05] MEDS: ENOXAPARIN SODIUM INJ 40 MG/0.4 ML DISP.SYRIN SUBCUT SCH (10:45)
[2016-11-05] MEDS ORDERED: ALBUTEROL SULFATE HFA (90 MCG/PUFF) 200 PUFF/8.5 GM MDI IH PRN (10:49)
[2016-11-05] MEDS: NYSTATIN CREAM 15 GM TOP SCH ×2 (11:04→21:34)
[2016-11-05] MEDS: NYSTATIN TOPICAL POWDER 15 GM TOP SCH ×2 (11:05→21:34)
[2016-11-05] MEDS: BUMETANIDE 1 MG TABLET PO SCH ×2 (12:08→21:34)
--- NOTE | 2016-11-05 18:08 | PDOC PROGRESS REPORT ---
Subjective Progress Note for:: 11/05/16 Subjective:: Patient appears to have a chronic cor pulmonale from COPD, obstructive sleep apnea and obesity with hypoventilation. She has a tracheostomy in place. She presented to the hospital yesterday with increasing swelling in her pannus and bleeding from her pannus. Overall, I felt that her clinical picture was fairly stable. I was concerned about her leukocytosis, but, she was recently placed on prednisone. Today, she does feel improved. She did not wear her ventilator last night. She does wear her home ventilator during the day but has a difficult time using the ventilator at night because she has panic attacks. She does have a care provider with her during the day but not at night. She does admit that anxiety is a large part of her problem. We discussed the possibility of transferring to a jail facility but she is not in agreement with this. Review of systems: The patient denies subjective fevers chills or sweats overnight. Her breathing is stable. She denies a productive cough. She has not had any hemoptysis. She has at her pannus site only when the pannus is manipulated. Otherwise, she denies abdominal pain. She does not have any nausea, vomiting or diarrhea. She has no constipation. She has a chronic indwelling Ceja catheter. Physical Exam Vital Signs: Temp Pulse Resp BP Pulse Ox 98.0 F 77 24 H 122/41 L 97 11/05/16 16:06 11/05/16 16:06 11/05/16 16:06 11/05/16 16:06 11/05/16 17:27 Intake & Output 11/04/16 11/05/16 11/06/16 06:59 06:59 06:59 Intake Total 630 358 Output Total 800 700 Balance -170 -342 Weight 154 kg 154 kg Additional comments: Patient is a super morbidly obese female. Her mentation is appropriate. She answers all questions appropriately. Her facial appearance is noteworthy for a hewitt and mustache. Her tracheostomy site does have some brown filament along the plastic parts but otherwise she does not have any purulent drainage from the tracheostomy site. There is no bleeding from the tracheostomy site. Her neck is supple. The patient's lungs do demonstrate a few scattered crackles and wheezes. However, the patient has very good air excursion. She does not appear to be tachypneic. Her breathing is nonlabored. Her cardiac exam demonstrates a regular rate and rhythm. The abdomen demonstrates a significant pannus. She has some erythema and excoriations on the pannus. This is on the underneath side of the pannus. She also had appears to have some Xiao in the vaginal and intertriginous zones. Otherwise, the skin exam is unremarkable. Results Laboratory Results: 11/05/16 05:17 11/05/16 05:17 11/04/16 11/05/16 11/05/16 22:35 05:17 05:17 WBC 12.1 H RBC 4.18 Hgb 11.2 L Hct 35.2 L MCV 84 MCH 26.9 L MCHC 31.9 L RDW 16.0 H Plt Count 196 Sodium 138.4 Potassium 3.9 Chloride 89 L Carbon Dioxide 42 H* Anion Gap 7 BUN 22 H Creatinine 0.84 Est GFR ( Amer) > 60 Est GFR (Non-Af Amer) > 60 Glucose 120 H Calcium 9.1 Phosphorus 4.1 Magnesium 2.0 Triglycerides 139 Cholesterol 169.14 LDL Cholesterol Direct 104 H VLDL Cholesterol 28.0 HDL Cholesterol 49 TSH Urine Color YELLOW Urine Appearance CLEAR Urine pH 8.0 Ur Specific [place] 1.015 Urine Protein NEGATIVE Urine Glucose (UA) NEGATIVE Urine Ketones NEGATIVE Urine Blood SMALL H Urine Nitrite NEGATIVE Ur Leukocyte Esterase TRACE H Urine WBC (Auto) 4 Urine RBC (Auto) 19 11/05/16 05:17 WBC RBC Hgb Hct MCV MCH MCHC RDW Plt Count Sodium Potassium Chloride Carbon Dioxide Anion Gap BUN Creatinine Est GFR ( Amer) Est GFR (Non-Af Amer) Glucose Calcium Phosphorus Magnesium Triglycerides Cholesterol LDL Cholesterol Direct VLDL Cholesterol HDL Cholesterol TSH 2.27 Urine Color Urine Appearance Urine pH Ur Specific [place] Urine Protein Urine Glucose (UA) Urine Ketones Urine Blood Urine Nitrite Ur Leukocyte Esterase Urine WBC (Auto) Urine RBC (Auto) Impressions: Chest X-Ray 11/04/16 00:00 IMPRESSION: Increased opacity at the left lateral lung base. Assessment & Plan - Diagnosis (1) Acute and chronic respiratory failure ([id number]) Qualifiers: Respiratory failure complication: hypoxia and hypercapnia Qualified Code(s): J96.21 - Acute and chronic respiratory failure with hypoxia Is this a current diagnosis for this admission?: YesPlan: Nursing staff has been instructed to ensure that the patient wears her home ventilator at night. She will continue on tracheostomy collar 28% during the day. (2) Lymphedema Is this a current diagnosis for this admission?: Yes (3) Wheezing Is this a current diagnosis for this admission?: YesPlan: Patient appears clinically stable. I think that she is at her baseline. I am going to start to taper her prednisone. Otherwise, I will continue all of her routine bronchodilators. (4) COPD (chronic obstructive pulmonary disease) Qualifiers: COPD type: unspecified COPD Qualified Code(s): J44.9 - Chronic obstructive pulmonary disease, unspecified Is this a current diagnosis for this admission?: YesPlan: see wheezing above for plan. (5) Diastolic CHF Is this a current diagnosis for this admission?: YesPlan: Stable. The patient does not appear to be decompensated. I have not made any changes to her outpatient regimen (6) Tracheostomy dependence Is this a current diagnosis for this admission?: Yes (7) Leucocytosis Is this a current diagnosis for this admission?: YesPlan: This is likely from the patient's recent increase in dose of steroid. blood Cultures and a urine culture were ordered on admission. Urine culture may not have been collected appropriately. In any event the patient appears to be doing better. She does have a chronic indwelling Ceja catheter and I would not repeat a urine culture unless she has a fever. She appears to be doing well on Augmentin. (8) Anxiety Is this a current diagnosis for this admission?: YesPlan: Patient does appear to have severe anxiety with panic attacks. She is receiving Ativan. Certainly, this could complicate the patient's respiratory status. However, she does appear to warrant some dose of an anxiolytic. Again , I suggested that the patient consider being cared for in a jail facility. I think this would be in her best interest but she refuses. - Time Time Spent with patient: 15-24 minutes - Inpatient Certification Medical Necessity: Risk of Complication if Not Cared For in Hospital
[2016-11-06] MEDS: LORAZEPAM 0.5 MG TABLET PO PRN ×2 (00:33→11:41)
[2016-11-06] MEDS: OXYCODONE-ACETAMINOPHEN 5-325 MG TABLET PO PRN ×2 (01:49→09:23)
[2016-11-06] MEDS: ALBUTEROL SULFATE 0.083% NEB 2.5 MG/3 ML AMPUL NEB PRN ×2 (02:11→08:47)
[2016-11-06 04:51] LABS: HEMATOCRIT 32.4 % (36.0-47.0); HEMOGLOBIN 10.1 g/dL (12.0-15.5); HGB HCT DIFFERENCE -2.1; MEAN CORPUSCULAR HEMOGLOBIN 26.2 pg (27.0-33.4); MEAN CORPUSCULAR HGB CONC 31.1 g/dL (32.0-36.0); MEAN CORPUSCULAR VOLUME 84 fl (80-97); RED BLOOD COUNT 3.84 10^6/uL (3.72-5.28); RED CELL DISTRIBUTION WIDTH 15.7 % (11.5-14.0); WHITE BLOOD COUNT 12.7 10^3/uL (4.0-10.5)
[2016-11-06 05:27] LABS: BLOOD UREA NITROGEN 26 mg/dL (7-20); CALCIUM 8.9 mg/dL (8.4-10.2); CHLORIDE 92 mmol/L (98-107); CREATININE RESULT 0.84 mg/dL (0.52-1.25); GLUCOSE 126 mg/dL (75-110); POTASSIUM 4.4 mmol/L (3.6-5.0); SODIUM 136.2 mmol/L (137-145)
[2016-11-06 05:34] LABS: ANION GAP 6 (5-19); CARBON DIOXIDE 38 mmol/L (22-30)
[2016-11-06] MEDS: AMOXICILLIN TR/POT CLAVULANATE 500-125 MG TAB PO SCH (05:51)
[2016-11-06] MEDS ORDERED: (PENDING PHARMACY ID) (Trazodone Hcl [Desyrel] 100 MG) PO PRN (07:40)
[2016-11-06] MEDS ORDERED: (PENDING PHARMACY ID) (Lurasidone Hcl [Latuda] 60 MG) PO SCH (08:00)
[2016-11-06] MEDS: METFORMIN HCL 500 MG TABLET PO SCH (08:30)
[2016-11-06] MEDS: SUCRALFATE 1 GM TABLET PO SCH ×2 (08:30→11:26)
[2016-11-06] MEDS: METOPROLOL SUCCINATE 50 MG TAB.SR.24H PO SCH (09:23)
[2016-11-06] MEDS: FAMOTIDINE 20 MG TABLET PO SCH (09:24)
[2016-11-06] MEDS: AMLODIPINE BESYLATE 5 MG TABLET PO SCH (09:24)
[2016-11-06] MEDS: GABAPENTIN 300 MG CAPSULE PO SCH (09:25)
[2016-11-06] MEDS: BUMETANIDE 1 MG TABLET PO SCH (09:26)
[2016-11-06] MEDS: ENOXAPARIN SODIUM INJ 40 MG/0.4 ML DISP.SYRIN SUBCUT SCH (09:27)
[2016-11-06] MEDS: NYSTATIN CREAM 15 GM TOP SCH (09:29)
[2016-11-06] MEDS: DOCUSATE SODIUM 100 MG CAPSULE PO SCH (09:30)
[2016-11-06] MEDS ORDERED: PREDNISONE 20 MG TABLET PO SCH (10:00)
[2016-11-06] MEDS: NYSTATIN TOPICAL POWDER 15 GM TOP SCH (10:01)
[2016-11-06] MEDS ORDERED: HYDROCORTISONE 1% CREAM 28.35 GM TP PRN (10:33)
[2016-11-06] MEDS ORDERED: FLUCONAZOLE 100 MG TABLET PO ONE (11:15)
[2016-11-06] MEDS ORDERED: BUMETANIDE INJ/PF 1 MG/4 ML SDV IV ONE (12:00)
[2016-11-06 13:01] VITALS: BP 119/43
[2016-11-07] MEDS ORDERED: FLUCONAZOLE 100 MG TABLET PO SCH (10:00)
--- NOTE | 2016-11-07 21:32 | PDOC DISCHARGE SUMMARY ---
General - Admit/Disc Date/PCP Admission Date/Primary Care Provider: 11/04/16 18:24 Discharge Date: 11/06/16 - Discharge Diagnosis (1) Candidal intertrigo Is this a current diagnosis for this admission?: Yes (2) Abdominal wall cellulitis Is this a current diagnosis for this admission?: Yes (3) Anxiety Is this a current diagnosis for this admission?: Yes (4) COPD (chronic obstructive pulmonary disease) Is this a current diagnosis for this admission?: Yes (5) Diastolic CHF Is this a current diagnosis for this admission?: Yes (6) Morbid obesity with body mass index of 50.0-59.9 in adult Is this a current diagnosis for this admission?: Yes (7) Tracheostomy dependence Is this a current diagnosis for this admission?: Yes - Additional Information Resuscitation Status: Full Code Discharge Diet: Cardiac, Diabetic Discharge Activity: Activity As Tolerated, Supervised Activity Home Medications: Albuterol Sulfate [Ventolin 0.083% Neb 2.5 mg/3 mL Ampul] 2.5 mg PO Q4HP PRN 09/16 Lorazepam [Ativan 0.5 mg Tablet] 0.5 mg PO BIDP PRN 11/04/16 Lurasidone HCl [Latuda] 60 mg PO BIDBS 11/04/16 Trazodone HCl [Desyrel] 100 mg PO HSP PRN 11/04/16 Albuterol Sulfate [Proair HFA Inhalation Aerosol 8.5 gm MDI] 2 puff IH Q6HP PRN hfa.aer.[id number] 11/06/16 Albuterol Sulfate [Ventolin 0.083% Neb 2.5 mg/3 mL Ampul] 2.5 mg NEB RTQ4HP PRN vial.neb 11/06/16 Amlodipine Besylate [Norvasc 5 mg Tablet] 5 mg PO Q12 tablet 11/06/16 Amox Tr/Potassium Clavulanate [Augmentin "500" Tablet] 1 tab PO Q8 #21 tablet 11/06/16 Bumetanide [Bumex 1 mg Tablet] 1 mg PO Q12 tablet 11/06/16 Docusate Sodium [Colace 100 mg Capsule] 100 mg PO BID capsule 11/06/16 Fluconazole [Diflucan 100 mg Tablet] 100 mg PO DAILY #7 tablet 11/06/16 Gabapentin [Neurontin 300 mg Capsule] 300 mg PO Q12 capsule 11/06/16 Hydrocortisone [Hydrocortisone 1% Cream 28.35 gm] 1 applic TP TIDP PRN #1 tube 11/06/16 Prednisone [Deltasone 20 mg Tablet] 20 mg PO DAILY tablet 11/06/16 Sucralfate [Carafate 1 gm Tablet] 1 gm PO ACHS tablet 11/06/16 Trazodone HCl [Desyrel 50 mg Tablet] 100 mg PO HSP PRN tablet 11/06/16 History of Present Illness History of Present Illness: ENENA ISLAS is a 50 year old female appears to have chronic right-sided heart failure. This appears to be primarily respiratory from a long history of COPD. The patient is home ventilator dependent. She sees Dr. Mackenzie as her graphics coordinator and Dr. Danica gary as her primary care provider. She has been prescribed home ventilation for years, but, she does not use the machine at night because she has panic attacks. She feels that she is able to wear the machine in the hospital. Today, the patient presented to the hospital with increased swelling of her pannus. Due to increased swelling the patient has had more irritation and bleeding. She has not had any fevers or chills. She does report hot flashes which are chronic. 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 Her presentation is also significant in that she has been having panic attacks and is currently according to the ER notes without her Ativan. Otherwise on review of systems she has lightheadedness, abdominal pain in the areas where there is skin breakdown over the past. She is moving her bowels normally. She has no nausea or vomiting. She has no trouble urinating. She has a chronic indwelling Ceja catheter that is changed out once per month. She has not had any headaches or visual changes. She has not had any trouble with her trach. She has not had any trouble swallowing. She did not report increased shortness of breath to me at this time. Hospital Course Hospital Course: From patient's prior discharge approximately 12 days prior she had been in the emergency department 4 times. Was ultimately admitted for what was thought to be abdominal wall cellulitis, good response to Augmentin. Patient also had a fungal component of intertrigo to this and fluconazole administered. Patient ultimately revealed that her impetus for coming infrequently is evening anxiety and desire for benzodiazepines. Patient does not have a caregiver in the evening. Patient was discharged home in stable condition to resume use of her home ventilator. Physical Exam Vital Signs: Temp Pulse Resp BP Pulse Ox 98.6 F 110 H 22 H 135/50 H 96 11/06/16 12:33 11/06/16 12:33 11/06/16 12:33 11/06/16 12:33 11/06/16 12:33 Intake & Output 11/06/16 11/07/16 11/08/16 06:59 06:59 06:59 Intake Total 735 695 Output Total 2904 300 Balance -2169 395 Weight 167 kg Exam: GENERAL: No acute distress, morbidly obese HEENT: Conjunctiva clear, nonicteric, moist mucous membranes, no JVD, tracheostomy noted RESPIRATORY: Expiratory phase, prolonged; otherwise clear CARDIAC: Regular rate and rhythm, no murmurs/gallops/rubs--limited by body habitus ABDOMEN: Soft, nondistended, nontender, positive bowel sounds, no rebound, no guarding EXTREMETIES: no bilateral lower extremity edema NEUROLOGIC: Alert, oriented to person/place/time, CN's grossly intact, no focal deficits SKIN: Large abdominal pannus with candidal intertrigo PSYCH: Normal mood, normal affect Results Laboratory Results: 11/06/16 04:29 11/06/16 04:29 Impressions: Chest X-Ray 11/04/16 00:00 IMPRESSION: Increased opacity at the left lateral lung base. Qualifiers PATEINT BEING DISCHARGED WITH ANY OF THE FOLLOWING DIAGNOSIS?: No Plan Time Spent: Less than 30 Minutes
== END 2016-11-06 13:09 | disposition home health service (06) | DRG 208 ==
LOC: ER 11:46 → EH 18:24 → UNDOADMIN 19:27 → 3S 21:50
PROVIDERS: ADMIT Internal Medicine; ATTEND Internal Medicine
PROC: 5A1945Z Respiratory Ventilation, 24-96 Consecutive Hours (ICD-10-PCS; principal; 2016-11-05)
DX: J96.21 Acute and chronic respiratory failure with hypoxia (principal); J18.9 Pneumonia, unspecified organism; E66.2 Morbid (severe) obesity with alveolar hypoventilation; L03.311 Cellulitis of abdominal wall; Z68.43 Body mass index [BMI] 50.0-59.9, adult; Z99.11 Dependence on respirator [ventilator] status; I50.32 Chronic diastolic (congestive) heart failure; J44.9 Chronic obstructive pulmonary disease, unspecified; J96.22 Acute and chronic respiratory failure with hypercapnia; I89.0 Lymphedema, not elsewhere classified; L68.2 Localized hypertrichosis; I48.91 Unspecified atrial fibrillation; I11.0 Hypertensive heart disease with heart failure; B37.2 Candidiasis of skin and nail; Z93.0 Tracheostomy status; Z96.0 Presence of urogenital implants; D72.829 Elevated white blood cell count, unspecified; F41.9 Anxiety disorder, unspecified; I27.81 Cor pulmonale (chronic); F51.9 Sleep disorder not due to a substance or known physiological condition, unspecified; J45.909 Unspecified asthma, uncomplicated; E11.9 Type 2 diabetes mellitus without complications; F90.9 Attention-deficit hyperactivity disorder, unspecified type; M79.7 Fibromyalgia; Z79.51 Long term (current) use of inhaled steroids; Z79.899 Other long term (current) drug therapy; Z90.49 Acquired absence of other specified parts of digestive tract; Z82.49 Family history of ischemic heart disease and other diseases of the circulatory system; Z83.3 Family history of diabetes mellitus; Z79.52 Long term (current) use of systemic steroids; Z88.6 Allergy status to analgesic agent; Z88.8 Allergy status to other drugs, medicaments and biological substances; Z79.84 Long term (current) use of oral hypoglycemic drugs; I25.10 Atherosclerotic heart disease of native coronary artery without angina pectoris; Z71.6 Tobacco abuse counseling; F17.200 Nicotine dependence, unspecified, uncomplicated
CPT/HCPCS: 36415; 71010; 80048; 80053; 80061; 81001; 82803; 82962; 83036; 83735; 83880; 84100; 84443; 84484; 85025; 85027; 85610; 85730; 87040; 87070; 87086; 87205; 94640; 99284; 99285; J1650; J1815; J3490; J7512; J7620

== ENCOUNTER 2016-11-10 14:00 | Emergency (ER) | payer MEDICAID ==
--- NOTE | 2016-11-10 14:53 | ER Document Report ---
ED Skin Rash/Insect Bite/Abscs - General Chief Complaint: Skin Problem Stated Complaint: ABDOMINAL PAIN Time Seen by Provider: 11/10/16 14:05 Mode of Arrival: Ambulatory Information source: Patient Notes: Patient is a 50-year-old female this emergency department with chronic abdominal wall cellulitis, chronic respiratory failure with a tracheostomy who presents to the ER today for redness and swelling to her abdomen. Patient is on nystatin powder and Diflucan which she states is not helping. She was on Keflex and Bactrim started on November 02 which she states she did finish all of but states that the redness and pain is just worse. She states that the only thing that ever works as "getting admitted and 3 days of IV antibiotics." She denies any respiratory symptoms today, states that she is breathing like her normal. TRAVEL OUTSIDE OF THE [place] IN LAST 30 DAYS: No - Related Data Allergies/Adverse Reactions: ziprasidone HCl [From Geodon] Allergy (Mild, Verified 11/10/16 14:18) itching acetaminophen [Acetaminophen] Adverse Reaction (Unknown, Verified 11/10/16 14:18 ) Past Medical History - General Information source: Patient - Social History Smoking Status: Current Every Day Smoker Frequency of alcohol use: None Drug Abuse: None Family History: Reviewed & Not Pertinent, CAD, DM, Hypertension - Past Medical History Cardiac Medical History: Reports: Hx Atrial Fibrillation, Hx Congestive Heart Failure, Hx Coronary Artery Disease, Hx Hypercholesterolemia, Hx Hypertension, Hx Heart Murmur Denies: Hx DVT, Hx Pulmonary Embolism Pulmonary Medical History: Reports: Hx Asthma, Hx Bronchitis, Hx COPD, Hx Pneumonia, Hx Intubation, Hx Respiratory Failure, Hx Sleep Apnea Neurological Medical History: Denies: Hx Seizures Endocrine Medical History: Reports: Hx Diabetes Mellitus Type 2. Denies: Hx Diabetes Mellitus Type 1, Hx Hyperthyroidism, Hx Hypothyroidism Renal/ Medical History: Reports: Hx Renal Insufficiency. Denies: Hx Peritoneal Dialysis GI Medical History: Reports: Hx Gastroesophageal Reflux Disease, Hx Hiatal Hernia. Denies: Hx Cirrhosis, Hx Hepatitis Musculoskeltal Medical History: Reports Hx Arthritis, Reports Hx Fibromyalgia Psychiatric Medical History: Reports: Hx Attention Deficit Hyperactivity Disorder, Hx Bipolar Disorder, Hx Depression Traumatic Medical History: Reports: Hx Fractures Infectious Medical History: Reports: Hx C-Diff, Hx MRSA. Denies: Hx Hepatitis Past Surgical History: Reports: Hx Abdominal Surgery - upper hernia repair, Hx Appendectomy, Hx Tonsillectomy, Other - Permanent tracheostomy - Immunizations Hx Diphtheria, Pertussis, Tetanus Vaccination: Yes Hx Pneumococcal Vaccination: 05/06/09 Review of Systems - Review of Systems Constitutional: No symptoms reported EENT: No symptoms reported Cardiovascular: No symptoms reported Respiratory: See HPI Gastrointestinal: No symptoms reported Genitourinary: No symptoms reported Female Genitourinary: No symptoms reported Musculoskeletal: No symptoms reported Skin: See HPI Hematologic/Lymphatic: No symptoms reported Neurological/Psychological: No symptoms reported Physical Exam - Vital signs Vitals: Temp Pulse Resp BP Pulse Ox 98.1 F 83 20 143/51 H 100 11/10/16 14:05 11/10/16 14:05 11/10/16 14:05 11/10/16 14:05 11/10/16 14:05 - Notes Notes: PHYSICAL EXAMINATION: GENERAL: morbidly obese, In no acute distress. HEAD: Atraumatic, normocephalic. EYES: Pupils equal round and reactive to light, extraocular movements intact, sclera anicteric, conjunctiva are normal. ENT: ear canals without erythema or foreign body, TMs pearly syed with good bony landmarks, nares patent, oropharynx clear without exudates. Moist mucous membranes. NECK: Normal range of motion, supple without lymphadenopathy LUNGS: trach in place, on oxygen, CTAB and equal. No wheezes rales or rhonchi. HEART: Regular rate and rhythm without murmurs ABDOMEN: Soft, no tenderness. No guarding, no rebound BACK: no vertebral tenderness, normal ROM GI/: no CVA tenderness EXTREMITIES: Normal range of motion, no pitting edema. No cyanosis. NEUROLOGICAL: Cranial nerves grossly intact. Normal sensory/motor exams. PSYCH: Normal mood, normal affect. SKIN: Warm, Dry, normal turgor, erythema to lower abdomen/panus with small skin tears in the high tension areas, no worse on exam than explained in recent physical exams here Course - Re-evaluation Re-evalutation: 11/10/16 18:02 WBC is normal, pt vitals are stable, afebrile. Discussed case with Dr. Montes, ER attending and Dr. Smith who both agree that pt should go home with topical antifungal treatment. She has home health to come apply if she cannot, although she lifts her own pannus for me without any hesitation, so I believe she can do this herself. When I told her she was being discharged, she started removing her own mask from her trach and then telling me that she was having trouble breathing. She does this frequently when she doesn't want to go home from the hospital. She continues to ask "which doctor won't admit me? tell me? I'll call them myself." I gave her one of her normal doses of ativan. - Vital Signs Vital signs: Temp Pulse Resp BP Pulse Ox 98.1 F 82 19 138/60 H 99 11/10/16 14:05 11/10/16 18:05 11/10/16 18:05 11/10/16 18:05 11/10/16 18:05 - Laboratory Result Diagrams: 11/10/16 15:09 11/10/16 15:09 Laboratory results interpreted by me: 11/10/16 11/10/16 11/10/16 15:09 15:09 15:15 Hgb 10.6 L Hct 32.9 L MCH 26.7 L RDW 15.7 H Seg Neutrophils % 80.3 H Chloride 97 L Carbon Dioxide 35 H Total Protein 6.0 L Albumin 3.2 L Urine Blood MODERATE H Ur Leukocyte Esterase SMALL H Discharge - Discharge Clinical Impression: Panniculitis, Fungal infection of skin Condition: Stable Disposition: HOME, SELF-CARE Additional Instructions: Return immediately for any new or worsening symptoms. Follow up with primary care provider, call tomorrow to make followup appointment. Prescriptions: Chlorhexidine Gluconate [Hibiclens] 473 ml TP DAILY #2 liquid Nystatin 1 each MC BID #1 powder.ea. Referrals: MARILYNN BAY PA-C [Primary Care Provider] - Follow up as needed
[2016-11-10 15:27] LABS: ABSOLUTE EOSINOPHILS # (AUTO) 0.1 10^3/uL (0.0-0.6); ABSOLUTE LYMPHOCYTES (AUTO) 1.3 10^3/uL (0.5-4.7); ABSOLUTE MONOCYTES (AUTO) 0.5 10^3/uL (0.1-1.4); ABSOLUTE NEUT (AUTO) 7.9 10^3/uL (1.7-8.2); BASOPHILS % (AUTO) 0.3 % (0-2); EOSINOPHILS % (AUTO) 1.2 % (0-6); HEMATOCRIT 32.9 % (36.0-47.0); HEMOGLOBIN 10.6 g/dL (12.0-15.5); HGB HCT DIFFERENCE -1.1; MEAN CORPUSCULAR HEMOGLOBIN 26.7 pg (27.0-33.4); MEAN CORPUSCULAR VOLUME 83 fl (80-97); MONOCYTES % (AUTO) 5.2 % (3-13); RED BLOOD COUNT 3.95 10^6/uL (3.72-5.28); RED CELL DISTRIBUTION WIDTH 15.7 % (11.5-14.0); SEGMENTED NEUTROPHILS % (AUTO) 80.3 % (42-78); WHITE BLOOD COUNT 9.8 10^3/uL (4.0-10.5)
[2016-11-10 15:37] LABS: APPEARANCE,URINE CLEAR; BILIRUBIN,URINE NEGATIVE (NEGATIVE); CALCIUM OXALATE CRYSTALS,URINE MODERATE /HPF; GLUCOSE, URINE NEGATIVE (NEGATIVE); KETONES,URINE NEGATIVE (NEGATIVE); LEUKOCYTE ESTERASE,URINE SMALL (NEGATIVE); NITRITE,URINE NEGATIVE (NEGATIVE); PROTEIN,URINE NEGATIVE (NEGATIVE); URINE SPECIFIC GRAVITY 1.003; UROBILINOGEN,URINE NEGATIVE mg/dL (<2.0)
[2016-11-10 15:54] LABS: ALANINE AMINOTRANSFERASE 31 U/L (9-52); ALBUMIN 3.2 g/dL (3.5-5.0); ALKALINE PHOSPHATASE 88 U/L (38-126); ANION GAP 6 (5-19); ASPARTATE AMINO TRANSFERASE 15 U/L (14-36); BILIRUBIN,DIRECT 0.3 mg/dL (0.0-0.4); BILIRUBIN,TOTAL 0.4 mg/dL (0.2-1.3); BLOOD UREA NITROGEN 16 mg/dL (7-20); CALCIUM 8.9 mg/dL (8.4-10.2); CARBON DIOXIDE 35 mmol/L (22-30); CHLORIDE 97 mmol/L (98-107); CREATININE RESULT 0.75 mg/dL (0.52-1.25); GLUCOSE 89 mg/dL (75-110); POTASSIUM 4.5 mmol/L (3.6-5.0); SODIUM 138.1 mmol/L (137-145)
[2016-11-10] MEDS ORDERED: CLOTRIMAZOLE 1% TOPICAL SOLN 10 ML TP ONE (16:20)
[2016-11-10] MEDS ORDERED: MUPIROCIN CALCIUM 2% CREAM 15 GM TP ONE (16:39)
[2016-11-10] MEDS ORDERED: LORAZEPAM 0.5 MG TABLET PO ONE (16:59)
[2016-11-10] MEDS ORDERED: ALBUTEROL SULFATE 0.083% NEB 2.5 MG/3 ML AMPUL NEB ONE (18:18)
[2016-11-10] MEDS ORDERED: BUMETANIDE 1 MG TABLET PO ONE (18:19)
[2016-11-10] MEDS ORDERED: HYDROCODONE/ACETAMINOPHEN 5-325 MG 6 TAB/DSPK PO PRN (18:32)
[2016-11-10 19:00] VITALS: BP 132/81
== END 2016-11-10 19:00 | disposition home or self-care (01) ==
LOC: ER 14:00
DX: B36.9 Superficial mycosis, unspecified (principal); M79.3 Panniculitis, unspecified; L03.311 Cellulitis of abdominal wall; J96.10 Chronic respiratory failure, unspecified whether with hypoxia or hypercapnia; F17.200 Nicotine dependence, unspecified, uncomplicated; I48.91 Unspecified atrial fibrillation; I50.9 Heart failure, unspecified; I25.10 Atherosclerotic heart disease of native coronary artery without angina pectoris; E78.00 Pure hypercholesterolemia, unspecified; I11.0 Hypertensive heart disease with heart failure; E11.9 Type 2 diabetes mellitus without complications; E66.01 Morbid (severe) obesity due to excess calories; Z93.0 Tracheostomy status; Z88.6 Allergy status to analgesic agent; Z86.14 Personal history of Methicillin resistant Staphylococcus aureus infection
CPT/HCPCS: 94640; 99284; 36415; 85025; 80053; 81001; J3490 ×3

== ENCOUNTER 2016-11-24 04:21 | Emergency (ER) | payer MEDICAID, OTHER ==
[2016-11-24] MEDS ORDERED: IPRATROPIUM/ALBUTEROL 0.5-2.5 MG/3 ML AMPUL NEB ONE (04:59)
--- NOTE | 2016-11-24 05:01 | RADIOLOGY REPORT (SQ) ---
EXAM DESCRIPTION: CHEST SINGLE VIEW COMPLETED DATE/TIME: 11/24/2016 4:49 am REASON FOR STUDY: sob COMPARISON: Chest x-ray 11/04/2016. EXAM PARAMETERS: NUMBER OF VIEWS: One view. TECHNIQUE: Single frontal radiographic view of the chest acquired. RADIATION DOSE: NA LIMITATIONS: Patient's body habitus and positioning. FINDINGS: LUNGS AND PLEURA: The patient is rotated. There are bibasilar airspace opacities. There is a small left pleural effusion. No pneumothorax. MEDIASTINUM AND HILAR STRUCTURES: No obvious masses. HEART AND VASCULAR STRUCTURES: The heart is enlarged. There is central vascular congestion. BONES: No acute findings. HARDWARE: A tracheostomy tube is present. IMPRESSION: Cardiomegaly and central vascular congestion. Bibasilar airspace opacities, may represe nt atelectasis or pneumonia. Small left pleural effusion. TECHNICAL DOCUMENTATION: JOB ID: [id number]
[2016-11-24 05:02] LABS: ABSOLUTE EOSINOPHILS # (AUTO) 0.1 10^3/uL (0.0-0.6); ABSOLUTE LYMPHOCYTES (AUTO) 1.6 10^3/uL (0.5-4.7); ABSOLUTE MONOCYTES (AUTO) 0.5 10^3/uL (0.1-1.4); ABSOLUTE NEUT (AUTO) 6.3 10^3/uL (1.7-8.2); BASOPHILS % (AUTO) 0.5 % (0-2); EOSINOPHILS % (AUTO) 1.2 % (0-6); HEMATOCRIT 31.3 % (36.0-47.0); HEMOGLOBIN 10.4 g/dL (12.0-15.5); HGB HCT DIFFERENCE -0.1; LYMPHOCYTES % (AUTO) 18.2 % (13-45); MEAN CORPUSCULAR HEMOGLOBIN 27.5 pg (27.0-33.4); MEAN CORPUSCULAR HGB CONC 33.3 g/dL (32.0-36.0); MEAN CORPUSCULAR VOLUME 82 fl (80-97); MONOCYTES % (AUTO) 6.3 % (3-13); SEGMENTED NEUTROPHILS % (AUTO) 73.8 % (42-78); WHITE BLOOD COUNT 8.5 10^3/uL (4.0-10.5)
--- NOTE | 2016-11-24 05:02 | ER Document Report ---
ED Medical Screen (RME) - General Chief Complaint: Feet Swelling Stated Complaint: ABDOMINAL PAIN Time Seen by Provider: 11/24/16 04:45 Notes: Patient is a 51-year-old female that comes emergency department for chief complaint of decreased urine output since yesterday, bilateral lower extremity swelling, and increased swelling in her abdomen. Patient comes by EMS. She states her breathing is basically her usual. She denies fevers, she denies chest pain. patient is well-known to this department for chronic panniculitis, recurrent urinary tract infections, and tobacco abuse with chronic respiratory failure and tracheostomy. TRAVEL OUTSIDE OF THE [place] IN LAST 30 DAYS: No - Related Data Allergies/Adverse Reactions: ziprasidone HCl [From Geodon] Allergy (Mild, Verified 11/10/16 14:18) itching acetaminophen [Acetaminophen] Adverse Reaction (Unknown, Verified 11/10/16 14:18 ) Past Medical History - Past Medical History Cardiac Medical History: Reports: Hx Atrial Fibrillation, Hx Congestive Heart Failure, Hx Coronary Artery Disease, Hx Hypercholesterolemia, Hx Hypertension, Hx Heart Murmur Denies: Hx DVT, Hx Pulmonary Embolism Pulmonary Medical History: Reports: Hx Asthma, Hx Bronchitis, Hx COPD, Hx Pneumonia, Hx Intubation, Hx Respiratory Failure, Hx Sleep Apnea Neurological Medical History: Denies: Hx Seizures Endocrine Medical History: Reports: Hx Diabetes Mellitus Type 2. Denies: Hx Diabetes Mellitus Type 1, Hx Hyperthyroidism, Hx Hypothyroidism Renal/ Medical History: Reports: Hx Renal Insufficiency. Denies: Hx Peritoneal Dialysis GI Medical History: Reports: Hx Gastroesophageal Reflux Disease, Hx Hiatal Hernia. Denies: Hx Cirrhosis, Hx Hepatitis Musculoskeltal Medical History: Reports Hx Arthritis, Reports Hx Fibromyalgia Psychiatric Medical History: Reports: Hx Attention Deficit Hyperactivity Disorder, Hx Bipolar Disorder, Hx Depression Traumatic Medical History: Reports: Hx Fractures Infectious Medical History: Reports: Hx C-Diff, Hx MRSA. Denies: Hx Hepatitis Past Surgical History: Reports: Hx Abdominal Surgery - upper hernia repair, Hx Appendectomy, Hx Tonsillectomy, Other - Permanent tracheostomy - Immunizations Hx Diphtheria, Pertussis, Tetanus Vaccination: Yes Physical Exam - Vital signs Vitals: Temp Pulse Resp BP Pulse Ox 98.0 F 86 24 H 144/49 H 95 11/24/16 04:33 11/24/16 04:33 11/24/16 04:33 11/24/16 04:33 11/24/16 04:33 - Respiratory Respiratory status: No: Respiratory distress, Labored Breath sounds: Decreased air movement, Wheezing - Bilateral mild end expiratory wheeze. No: Productive cough - Cardiovascular Rhythm: Regular. No: Tachycardia Heart sounds: Normal auscultation, S1 appreciated, S2 appreciated - Extremities General lower extremity: Edema - Lower extremity edema, 2+, bilateral Course - Vital Signs Vital signs: Temp Pulse Resp BP Pulse Ox 98.0 F 86 24 H 144/49 H 95 11/24/16 04:33 11/24/16 04:33 11/24/16 04:33 11/24/16 04:33 11/24/16 04:33 - Laboratory Result Diagrams: 11/24/16 04:50 11/24/16 04:50
[2016-11-24 05:19] LABS: ALANINE AMINOTRANSFERASE 28 U/L (9-52); ALBUMIN 3.2 g/dL (3.5-5.0); ALKALINE PHOSPHATASE 80 U/L (38-126); ANION GAP 5 (5-19); ASPARTATE AMINO TRANSFERASE 10 U/L (14-36); BILIRUBIN,DIRECT 0.3 mg/dL (0.0-0.4); BILIRUBIN,TOTAL 0.3 mg/dL (0.2-1.3); BLOOD UREA NITROGEN 19 mg/dL (7-20); CALCIUM 8.7 mg/dL (8.4-10.2); CARBON DIOXIDE 31 mmol/L (22-30); CHLORIDE 103 mmol/L (98-107); CREATININE RESULT 0.85 mg/dL (0.52-1.25); GLUCOSE 107 mg/dL (75-110); POTASSIUM 4.3 mmol/L (3.6-5.0); SODIUM 139.1 mmol/L (137-145); TOTAL PROTEIN 5.9 g/dL (6.3-8.2)
[2016-11-24 05:29] LABS: APPEARANCE,URINE CLOUDY; BILIRUBIN,URINE NEGATIVE (NEGATIVE); GLUCOSE, URINE NEGATIVE (NEGATIVE); KETONES,URINE NEGATIVE (NEGATIVE); LEUKOCYTE ESTERASE,URINE MODERATE (NEGATIVE); NITRITE,URINE NEGATIVE (NEGATIVE); PROTEIN,URINE 30 mg/dL (NEGATIVE); URINE SPECIFIC GRAVITY 1.014; UROBILINOGEN,URINE NEGATIVE mg/dL (<2.0)
--- NOTE | 2016-11-24 06:20 | ER Document Report ---
ED Extremity Problem, Lower - General Information source: Patient TRAVEL OUTSIDE OF THE [place] IN LAST 30 DAYS: No - HPI Patient complains to provider of: Swelling <INDIGO MEJIA - Last Filed: 11/24/16 06:34> <HONG MARROQUIN - Last Filed: 11/24/16 10:17> - General Chief Complaint: Feet Swelling Stated Complaint: ABDOMINAL PAIN Time Seen by Provider: 11/24/16 04:45 Notes: Patient is a 51 year old female who presents to the ED with complaints of bilateral leg swelling and abdominal swelling. Patient states she is on 2mg of bumex morning and night. Patient also reports a difficulty with urinating and states she has recurrent UTIs from her catheter. Patient denies any chest pain , nausea, vomiting, diarrhea or fever. Patient adds she has some left arm pain with no known injury. Patient is also requesting pain medication for her chronic pain and states she has not seen pain management in over 1 year. Patient also states she is starting to have an anxiety attack and is requesting Ativan as she is over due for her morning dose. (INDIGO MEJIA) - Related Data Allergies/Adverse Reactions: ziprasidone HCl [From Geodon] Allergy (Mild, Verified 11/10/16 14:18) itching acetaminophen [Acetaminophen] Adverse Reaction (Unknown, Verified 11/10/16 14:18 ) Past Medical History - General Information source: Patient - Social History Smoking Status: Unknown if Ever Smoked Family History: Reviewed & Not Pertinent, CAD, DM, Hypertension - Past Medical History Cardiac Medical History: Reports: Hx Atrial Fibrillation, Hx Congestive Heart Failure, Hx Coronary Artery Disease, Hx Hypercholesterolemia, Hx Hypertension, Hx Heart Murmur Denies: Hx DVT, Hx Pulmonary Embolism Pulmonary Medical History: Reports: Hx Asthma, Hx Bronchitis, Hx COPD, Hx Pneumonia, Hx Intubation, Hx Respiratory Failure, Hx Sleep Apnea Neurological Medical History: Denies: Hx Seizures Endocrine Medical History: Reports: Hx Diabetes Mellitus Type 2. Denies: Hx Diabetes Mellitus Type 1, Hx Hyperthyroidism, Hx Hypothyroidism Renal/ Medical History: Reports: Hx Renal Insufficiency. Denies: Hx Peritoneal Dialysis GI Medical History: Reports: Hx Gastroesophageal Reflux Disease, Hx Hiatal Hernia. Denies: Hx Cirrhosis, Hx Hepatitis Musculoskeltal Medical History: Reports Hx Arthritis, Reports Hx Fibromyalgia Psychiatric Medical History: Reports: Hx Attention Deficit Hyperactivity Disorder, Hx Bipolar Disorder, Hx Depression Traumatic Medical History: Reports: Hx Fractures Infectious Medical History: Reports: Hx C-Diff, Hx MRSA. Denies: Hx Hepatitis Past Surgical History: Reports: Hx Abdominal Surgery - upper hernia repair, Hx Appendectomy, Hx Tonsillectomy, Other - Permanent tracheostomy - Immunizations Hx Diphtheria, Pertussis, Tetanus Vaccination: Yes Hx Pneumococcal Vaccination: 05/06/09 <INDIGO MEJIA - Last Filed: 11/24/16 06:34> Review of Systems - Review of Systems Constitutional: No symptoms reported EENT: No symptoms reported Cardiovascular: No symptoms reported. denies: Chest pain Respiratory: No symptoms reported Gastrointestinal: No symptoms reported. denies: Diarrhea, Nausea, Vomiting Genitourinary: See HPI, Dysuria Female Genitourinary: No symptoms reported Musculoskeletal: See HPI, Leg swelling Skin: No symptoms reported Hematologic/Lymphatic: No symptoms reported Neurological/Psychological: No symptoms reported <INDIGO MEJIA - Last Filed: 11/24/16 06:34> Physical Exam - General General appearance: Appears well, Alert In distress: None - HEENT Head: Normocephalic, Atraumatic Eyes: Normal Extraocular movements intact: Yes Pupils: PERRL - Respiratory Respiratory status: No respiratory distress Breath sounds: Normal - Cardiovascular Rhythm: Regular Heart sounds: Normal auscultation Murmur: No - Abdominal Inspection: Morbidly Obese - Back Back: Normal - Extremities General upper extremity: Normal inspection, Normal ROM General lower extremity: Edema - symmetrical 2 plus pitting edema, Other - no cellulitis, no calf tenderness - Neurological Neuro grossly intact: Yes Cognition: Normal Orientation: AAOx4 [place] Coma Scale Eye Opening: Spontaneous [place] Coma Scale Verbal: Oriented [place] Coma Scale Motor: Obeys Commands [place] Coma Scale Total: 15 Speech: Normal - Psychological Associated symptoms: Normal affect, Normal mood - Skin Skin Temperature: Warm Skin Moisture: Dry Skin Color: Normal <INDIGO MEJIA - Last Filed: 11/24/16 06:34> Course - Laboratory Result Diagrams: 11/24/16 04:50 11/24/16 04:50 <INDIGO MEJIA - Last Filed: 11/24/16 06:34> - Laboratory Result Diagrams: 11/24/16 04:50 11/24/16 04:50 <HONG MARROQUIN - Last Filed: 11/24/16 10:17> - Re-evaluation Re-evalutation: 11/24/16 06:40 Patient presents the emergency department with a chief complaint of lower extremity swelling, And urinary urgency. She has multiple chronic medical conditions including morbid obesity congestive heart failure. She lives independently at home and is on Bumex. Said she saw primary care physician yesterday which is new to her Dr. Abdi. She denies any chest pain pressure or shortness of breath and is in no respiratory distress. She denies any nausea vomiting or diarrhea. On examination she is well-appearing nontoxic in no acute distress 100% O2 sat no respiratory distress not tachypneic or tachycardic and blood pressure is stable. Her lungs are clear to auscultation and she has 2+ symmetrical pitting lower extremity edema which is chronic in nature no associated cellulitis concerns for DVT or acute vascular compromise. As she had mildly elevated BNP mildly vascular congestion without respiratory distress or hypoxia. He does have a urinary tract infection. Went ahead and gave her a shot of Rocephin for that. She is requesting pain medications for chronic pain told her that we do not do that here in the emergency department she stated she saw her doctor yesterday and they will not do it either told her I would refer her to pain management she said they will not see her either. I told her that we cannot manage her chronic pain also wanted us to manage her chronic anxiety which I told her we cannot do either at Dr. Abdi will have to come up with the recommendation or plan for that. She is discharged follow-up primary care physician to 3 days and discussed reasons for ED return sooner ( HONG MARROQUIN) - Vital Signs Vital signs: Temp Pulse Resp BP Pulse Ox 97.9 F 74 20 140/75 H 98 11/24/16 07:37 11/24/16 07:37 11/24/16 07:37 11/24/16 07:37 11/24/16 07:37 - Laboratory Laboratory results interpreted by me: 11/24/16 11/24/16 11/24/16 04:50 04:50 04:50 Hgb 10.4 L Hct 31.3 L RDW 16.0 H Carbon Dioxide 31 H AST 10 L NT-Pro-B Natriuret Pep 228 H Total Protein 5.9 L Albumin 3.2 L Urine Protein Urine Blood Ur Leukocyte Esterase 11/24/16 05:10 Hgb Hct RDW Carbon Dioxide AST NT-Pro-B Natriuret Pep Total Protein Albumin Urine Protein 30 H Urine Blood MODERATE H Ur Leukocyte Esterase MODERATE H Discharge <INDIGO MEJIA - Last Filed: 11/24/16 06:34> <HONG MARROQUIN - Last Filed: 11/24/16 10:17> - Discharge Clinical Impression: mild chf exacerbation, Anxiety, Acute UTI Condition: Stable Disposition: HOME, SELF-CARE Instructions: Nitrofurantoin ([facility]), Urinary Tract Infection ([facility]) Additional Instructions: Congestive Heart Failure You have been diagnosed as having congestive heart failure (CHF). CHF occurs when the heart is unable to pump blood efficiently, leading to fluid buildup in the veins and lungs. Typical symptoms are swelling of the legs, shortness of breath on minor exertion, and fatigue. CHF is treated with salt restriction, medicine to eliminate excess water and salt from the body, and medication to help the heart contract more efficiently. Eliminate added salt and salty foods in your diet. Decrease your activity until excess fluid has been eliminated. It will also be helpful to raise the head of your bed so you can sleep more easily. Keep a daily record of your weight. This will help your physician monitor your progress. Once extra water has been eliminated, light aerobic exercise daily -- such as walking -- will be helpful (unless your physician has told you to restrict activity for other reasons). Be sure to follow up with the physician as instructed. Contact the doctor at once if you worsen in any way. Urinary Tract Infection Your evaluation indicates that you have a urinary tract infection. This is due to germs growing in the bladder. This is a common problem. This infection usually responds quickly to antibiotics. Your antibiotic should be taken exactly as prescribed. Drink plenty of fluids -- three to four quarts a day. Occasionally, a bladder anesthetic will be prescribed to help stop the feeling of urgency until the antibiotic has a chance to clear the infection. This may cause your urine to be dark orange. Certain urine infections require a culture. If the doctor obtained a culture, the results will be back in two days. You should call to see if a change in treatment is needed. A repeat urinalysis after you finish treatment is often recommended. The physician will let you know if further testing is required. Call the doctor if you develop fever, chills, flank pain, inability to urinate, or blood in the urine. follow up with Dr. Abdi in 3-4 days return to er sooner for increasing worsening or new symptoms. Must have pcp or pain management prescribe chronic pain medication. Prescriptions: Nitrofurantoin/Nitrofuran Mac [Macrobid 100 mg Capsule] 1 tab PO BID #20 capsule Scribe Attestation: 11/24/16 06:42 I personally performed the services described in the documentation reviewed the documentation recorded by my scribe in my presence and it accurately and completely records my words and actions (HONG MARROQUIN) Scribe Documentation - Scribe Written by Debbie:: debbie Loera, 11/24/2016, 0637 acting as scribe for :: Moris <INDIGO MJEIA - Last Filed: 11/24/16 06:34>
[2016-11-24] MEDS ORDERED: LORAZEPAM 0.5 MG TABLET PO ONE (06:31)
[2016-11-24] MEDS ORDERED: CEFTRIAXONE INJ 1000 MG VIAL IM ONE (06:31)
[2016-11-24] MEDS ORDERED: FUROSEMIDE 80 MG TABLET PO ONE (06:32)
[2016-11-24] MEDS ORDERED: FUROSEMIDE 80 MG TABLET ONE (06:55)
[2016-11-24 07:45] VITALS: BP 140/75
== END 2016-11-24 07:48 | disposition home or self-care (01) ==
LOC: ER 04:21
DX: N39.0 Urinary tract infection, site not specified (principal); I50.9 Heart failure, unspecified; F41.9 Anxiety disorder, unspecified; M79.89 Other specified soft tissue disorders; R10.9 Unspecified abdominal pain; M79.602 Pain in left arm; Z79.899 Other long term (current) drug therapy
CPT/HCPCS: 94640; 99284; 96372; 36415; 85025; 80053; 81001; 83880; 71010; J3490; J0696; J7620

== ENCOUNTER 2017-08-09 12:21 | Emergency (ER) | payer MEDICAID ==
--- NOTE | 2017-08-09 13:14 | ER Document Report ---
ED General - General Stated Complaint: RESPIRATORY DISTRESS Time Seen by Provider: 08/09/17 13:02 Mode of Arrival: Medic Information source: Patient Notes: 51-year-old female with a history of obesity, CHF, hypertension, diabetes and respiratory failure with chronic trach presents with complaint of difficulty breathing. Patient states that since her recent trach exchange done by Dr. Duncan 4 days prior to arrival she has had difficulty with talking when she places her valve on. Patient states that she is due to follow-up with Dr. iDaz from [facility]NT[facility] but has yet to see him. She states when she called the office today they told her to come to the emergency department. She denies any worsening shortness of breath, increased O2 demand, productive cough, bleeding or purulent discharge from the site. Patient denies any fever, chills, chest pain, abdominal pain, difficulty swallowing, dysuria, abnormal bleeding. TRAVEL OUTSIDE OF THE [place] IN LAST 30 DAYS: No - HPI Onset: Last week Onset/Duration: Gradual Quality of pain: No pain Severity: None Associated symptoms: None Exacerbated by: Denies Relieved by: Denies Similar symptoms previously: No Recently seen / treated by doctor: No - Related Data Allergies/Adverse Reactions: ziprasidone HCl [From Geodon] Allergy (Mild, Verified 08/09/17 13:21) itching acetaminophen [Acetaminophen] Adverse Reaction (Unknown, Verified 08/09/17 13:21 ) Past Medical History - General Information source: Patient - Social History Smoking Status: Current Every Day Smoker Smoking Education Provided: Yes Frequency of alcohol use: None Drug Abuse: None Lives with: Family Family History: Reviewed & Not Pertinent, CAD, DM, Hypertension - Past Medical History Cardiac Medical History: Reports: Hx Atrial Fibrillation, Hx Congestive Heart Failure, Hx Coronary Artery Disease, Hx Hypercholesterolemia, Hx Hypertension, Hx Heart Murmur Denies: Hx DVT, Hx Pulmonary Embolism Pulmonary Medical History: Reports: Hx Asthma, Hx Bronchitis, Hx COPD, Hx Pneumonia, Hx Intubation, Hx Respiratory Failure, Hx Sleep Apnea Neurological Medical History: Denies: Hx Seizures Endocrine Medical History: Reports: Hx Diabetes Mellitus Type 2. Denies: Hx Diabetes Mellitus Type 1, Hx Hyperthyroidism, Hx Hypothyroidism Renal/ Medical History: Reports: Hx Renal Insufficiency. Denies: Hx Peritoneal Dialysis GI Medical History: Reports: Hx Gastroesophageal Reflux Disease, Hx Hiatal Hernia. Denies: Hx Cirrhosis, Hx Hepatitis Musculoskeltal Medical History: Reports Hx Arthritis, Reports Hx Fibromyalgia Psychiatric Medical History: Reports: Hx Attention Deficit Hyperactivity Disorder, Hx Bipolar Disorder, Hx Depression Traumatic Medical History: Reports: Hx Fractures Infectious Medical History: Reports: Hx C-Diff, Hx MRSA. Denies: Hx Hepatitis Past Surgical History: Reports: Hx Abdominal Surgery - upper hernia repair, Hx Appendectomy, Hx Tonsillectomy, Other - Permanent tracheostomy - Immunizations Hx Diphtheria, Pertussis, Tetanus Vaccination: Yes Hx Pneumococcal Vaccination: 05/06/09 Review of Systems - Review of Systems Notes: She denies any worsening shortness of breath, increased O2 demand, productive cough, bleeding or purulent discharge from the site. Patient denies any fever, chills, chest pain, abdominal pain, difficulty swallowing, dysuria, abnormal bleeding. Physical Exam - Vital signs Vitals: Pulse Ox 100 08/09/17 12:34 Interpretation: Normal. No: Hypoxic - Notes Notes: PHYSICAL EXAMINATION: GENERAL: Morbidly obese well-appearing, well-nourished and in no acute distress. HEAD: Atraumatic, normocephalic. EYES: Pupils equal round and reactive to light, extraocular movements intact, conjunctiva are normal. ENT: Nares patent, oropharynx clear without exudates. Moist mucous membranes. NECK: Normal range of motion, supple without lymphadenopathy. 6.[address] without surrounding erythema, purulent discharge. LUNGS: Diffuse wheezing in all lung gold. No accessory muscle use, respiratory distress, cyanosis, tachypnea HEART: Regular rate and rhythm without murmurs ABDOMEN: Soft, nontender, nondistended abdomen. No guarding, no rebound. No masses appreciated. Female : deferred Musculoskeletal: Normal range of motion, no pitting or edema. No cyanosis. NEUROLOGICAL: Cranial nerves grossly intact. Normal speech, normal gait. Normal sensory, motor exams PSYCH: Normal mood, normal affect. SKIN: Warm, Dry, normal turgor, no rashes or lesions noted. Course - Re-evaluation Re-evalutation: Chest X-Ray 08/09/17 13:26 IMPRESSION: Tracheostomy tube tip in the mid to upper trachea, in good positioning Stable cardiomegaly and pulmonary vascular prominence. No gross acute infiltrates 08/09/17 13:05 Dr. Duncan's office contacted. 08/09/17 13:55 51-year-old female with a history of obesity, CHF, hypertension, diabetes and respiratory failure with chronic trach presents with complaint of difficulty breathing. Patient states that since her recent trach exchange done by Dr. Duncan 4 days prior to arrival she has had difficulty with talking when she places her valve on. Patient states that she is due to follow-up with Dr. Diaz from ENT but has yet to see him. Upon arrival vitals were reviewed. Patient is not hypoxic. She is in no respiratory distress. Exam is significant for a 6.[address] without any surrounding erythema or purulent discharge. There is no crepitus on her chest or neck. She does have diffuse wheezing in all lung gold but declines breathing treatments. I did speak to Dr. Duncan who stated that he did exchange the trach last week and states it was a difficult rate to place due to scar tissue. He did refer the patient to see ENT but she has not yet been able to be seen. I did speak to who states that his staff told the patient to come to the emergency department because of her report of respiratory distress. I did explain that the patient is not in respiratory distress and is only having difficulty with talking when she has her valve on. No further recommendations at this time. He does state that he will assure that his staff contacts her immediately for follow-up. 08/09/17 14:59 Patient was monitored in the emergency department for 2 hours without respiratory distress, desaturation or increased O2 demands. Chest x-ray was obtained showed tracheostomy tube in the mid to upper trachea and in good positioning. Patient was reassured and advised to follow-up with ENT as recommended by her control inspector to place to trach last week. She remained stable throughout her ED course. She is not hypoxic, tachycardic or febrile. 08/09/17 15:20 - Vital Signs Vital signs: Temp Pulse Resp BP Pulse Ox 100 08/09/17 14:00 - Diagnostic Test Radiology reviewed: Image reviewed, Reports reviewed Discharge - Discharge Clinical Impression: Attention to tracheostomy, Wheezing Condition: Good Disposition: HOME, SELF-CARE Additional Instructions: Your chest x-ray today showed your trach to be in good position. Please follow- up with your control inspector and ENT as soon as possible. Referrals: HERBERTH DUNCAN MD [ACTIVE STAFF] - Follow up in 3-5 days DM DIAZ DO [ASSOCIATE] - Follow up in 3-5 days
--- NOTE | 2017-08-09 14:10 | RADIOLOGY REPORT (SQ) ---
EXAM DESCRIPTION: CHEST SINGLE VIEW COMPLETED DATE/TIME: 08/09/2017 1:57 pm REASON FOR STUDY: recent trach placement/ c/o sob COMPARISON: Chest films 10/31/2016, 11/03/2016, 11/04/2016, 11/24/2016 EXAM PARAMETERS: NUMBER OF VIEWS: One view. TECHNIQUE: Single frontal radiographic view of the chest acquired. RADIATION DOSE: NA LIMITATIONS: Portable technique, large patient FINDINGS: LUNGS AND PLEURA: Mild pulmonary vascular prominence. No gross alveolar or interstitial e tamara. No gross pleural effusion or dense consolidation worrisome for pneumonia. MEDIASTINUM AND HILAR STRUCTURES: No masses. Contour normal. HEART AND VASCULAR STRUCTURES: Moderate stable cardiomegaly BONES: No acute findings. HARDWARE: A tracheostomy tube is present with the tip in the mid upper trachea, in good positioning. This is similar compared to studies from October 2016. OTHER: No other significant finding. IMPRESSION: Tracheostomy tube tip in the mid to upper trachea, in good positioning Stable cardiomegaly and pulmonary vascular prominence. No gross acute infiltrates TECHNICAL DOCUMENTATION: JOB ID: [id number] [employer]- All Rights Reserved Reading location - IP/workstation name: [email or web address]
[2017-08-09 19:49] VITALS: BP 152/70
== END 2017-08-09 19:45 | disposition home or self-care (01) ==
LOC: ER 12:21
DX: Z43.0 Encounter for attention to tracheostomy (principal); J96.90 Respiratory failure, unspecified, unspecified whether with hypoxia or hypercapnia; J44.9 Chronic obstructive pulmonary disease, unspecified; I10 Essential (primary) hypertension; E11.9 Type 2 diabetes mellitus without complications; F17.200 Nicotine dependence, unspecified, uncomplicated; I25.10 Atherosclerotic heart disease of native coronary artery without angina pectoris; E66.01 Morbid (severe) obesity due to excess calories; Z68.43 Body mass index [BMI] 50.0-59.9, adult; I51.7 Cardiomegaly; Z98.890 Other specified postprocedural states; Z88.8 Allergy status to other drugs, medicaments and biological substances; Z87.01 Personal history of pneumonia (recurrent)
CPT/HCPCS: 71045; 99285

== ENCOUNTER 2017-09-14 22:52 | Emergency (ER) | payer MEDICAID ==
--- NOTE | 2017-09-15 00:39 | ER Document Report ---
ED General - General Mode of Arrival: Medic Information source: Patient TRAVEL OUTSIDE OF THE [place] IN LAST 30 DAYS: No <AGA JEROME - Last Filed: 09/15/17 02:00> <KEVIN MCNEIL - Last Filed: 09/15/17 02:52> - General Chief Complaint: Diarrhea Stated Complaint: WEAKNESS/DIARRHEA Time Seen by Provider: 09/15/17 00:19 Notes: Patient is a 51 year old female with a history of obesity, CHF, hypertension, type 2 diabetes and respiratory failure with chronic trach presents to the emergency department complaining of diarrhea and weakness onset yesterday. Patient states she would have 4-5 episodes of a small amount of diarrhea a day. She also complains of and low oxygen rate of 90 when transitioning from her ventilator to trach collar. She states her low O2 rate would last for hours then slowly ascend. Patient states she had her trach changed on August 05, [address] Jason and was told it appears her trach was closing due to some growth. Patient states she had a scheduled appointment with her ENT on August 26 but did not go due to dependent edema in the skin and subcutaneous tissue of her panniculus. Patient has yet to reschedule an appointment. (AGA JEROME) - Related Data Allergies/Adverse Reactions: ziprasidone HCl [From Geodon] Allergy (Mild, Verified 08/09/17 13:21) itching acetaminophen [Acetaminophen] Adverse Reaction (Unknown, Verified 08/09/17 13:21 ) Past Medical History - General Information source: Patient - Social History Smoking Status: Current Every Day Smoker - 1/2 a pack a day Family History: Reviewed & Not Pertinent, CAD, DM, Hypertension - Past Medical History Cardiac Medical History: Reports: Hx Atrial Fibrillation, Hx Congestive Heart Failure, Hx Coronary Artery Disease, Hx Hypercholesterolemia, Hx Hypertension, Hx Heart Murmur Pulmonary Medical History: Reports: Hx Asthma, Hx Bronchitis, Hx COPD, Hx Pneumonia, Hx Intubation, Hx Respiratory Failure, Hx Sleep Apnea Endocrine Medical History: Reports: Hx Diabetes Mellitus Type 2 Renal/ Medical History: Reports: Hx Renal Insufficiency GI Medical History: Reports: Hx Gastroesophageal Reflux Disease, Hx Hiatal Hernia Musculoskeltal Medical History: Reports Hx Arthritis, Reports Hx Fibromyalgia Psychiatric Medical History: Reports: Hx Attention Deficit Hyperactivity Disorder, Hx Bipolar Disorder, Hx Depression Traumatic Medical History: Reports: Hx Fractures Infectious Medical History: Reports: Hx C-Diff, Hx MRSA Past Surgical History: Reports: Hx Abdominal Surgery - upper hernia repair, Hx Appendectomy, Hx Tonsillectomy, Other - Permanent tracheostomy - Immunizations Hx Diphtheria, Pertussis, Tetanus Vaccination: Yes Hx Pneumococcal Vaccination: 05/06/09 <AGA JEROME - Last Filed: 09/15/17 02:00> Review of Systems - Review of Systems Constitutional: See HPI, Weakness EENT: No symptoms reported Cardiovascular: No symptoms reported Respiratory: No symptoms reported Gastrointestinal: See HPI, Diarrhea Genitourinary: No symptoms reported Female Genitourinary: No symptoms reported Musculoskeletal: No symptoms reported Skin: No symptoms reported Hematologic/Lymphatic: No symptoms reported Neurological/Psychological: No symptoms reported -: Yes All other systems reviewed and negative <AGA JEROME - Last Filed: 09/15/17 02:00> Physical Exam - General General appearance: Appears well, Alert In distress: None - HEENT Head: Normocephalic, Atraumatic Eyes: Normal Conjunctiva: Normal Extraocular movements intact: Yes Pupils: PERRL Neck: Normal - Respiratory Respiratory status: No respiratory distress, Other - Trach in place Chest status: Nontender Breath sounds: Rhonchi, Wheezing Chest palpation: Normal - Cardiovascular Rhythm: Regular Heart sounds: Normal auscultation Murmur: No Friction rub: No Gallop: None auscultated - Abdominal Inspection: Obese, Other - dependent edema in the skin and subcutaneous tissue of her panniculus Distension: No distension Bowel sounds: Normal Tenderness: Nontender Organomegaly: No organomegaly - Back Back: Normal - Extremities General upper extremity: Normal ROM General lower extremity: Normal ROM - Neurological Neuro grossly intact: Yes Cognition: Normal Orientation: AAOx4 Mccormick Coma Scale Eye Opening: Spontaneous Mccormick Coma Scale Verbal: Oriented Gissel Coma Scale Motor: Obeys Commands Mccormick Coma Scale Total: 15 Speech: Normal - Psychological Associated symptoms: Normal affect, Normal mood - Skin Skin Temperature: Warm Skin Moisture: Dry Skin Color: Normal Location of irregularity: Face - Male pattern facical hair <AGA JEROME Last Filed: 09/15/17 02:00> - Vital signs Vitals: Temp Pulse Resp BP Pulse Ox 97.7 F 81 18 121/104 H 6 L 09/14/17 23:19 09/14/17 23:19 09/14/17 23:19 09/14/17 23:19 09/14/17 23:19 Course - Laboratory Result Diagrams: 09/14/17 22:35 09/14/17 22:35 <AGA JEROME - Last Filed: 09/15/17 02:00> - Laboratory Result Diagrams: 09/14/17 22:35 09/14/17 22:35 - Diagnostic Test Radiology reviewed: Reports reviewed - Chest x-ray shows cardiomegaly with no acute findings. <KEVIN MCNEIL - Last Filed: 09/15/17 02:52> - Re-evaluation Re-evalutation: 09/15/17 01:22 At this time the patient's O2 saturation is 97% on her trach collar. 09/15/17 01:51 The patient repeatedly talked about the edema in her thighs being the reason she cannot go to see her doctor, however she does not have edema in her thighs. She has dependent edema in the skin and subcutaneous tissues in her extremely large pannus. 09/15/17 02:51 Pulse ox is now 98%. Patient has had no diarrhea. Turns out she took 2 Imodium earlier today. (KEVIN MCNEIL) - Vital Signs Vital signs: Temp Pulse Resp BP Pulse Ox 97.7 F 81 18 121/104 H 6 L 09/14/17 23:19 09/14/17 23:19 09/14/17 23:19 09/14/17 23:19 09/14/17 23:19 - Laboratory Laboratory results interpreted by me: 09/14/17 09/14/17 09/15/17 22:35 22:35 00:52 MCH 25.4 L RDW 16.9 H Sodium 146.3 H Carbon Dioxide 34 H BUN 21 H Est GFR (Non-Af Amer) 58 L Glucose 112 H Lactic Acid 0.6 L Direct Bilirubin 0.5 H Discharge <AGA JEROME - Last Filed: 09/15/17 02:00> <KEVIN MCNEIL - Last Filed: 09/15/17 02:52> - Discharge Clinical Impression: Shortness of breath, Lightheaded Diarrhea Qualifiers: Diarrhea type: unspecified type Qualified Code(s): R19.7 - Diarrhea, unspecified Condition: Stable Disposition: HOME, SELF-CARE Additional Instructions: Continue your regular medications. Call to reschedule your ENT appointment. Follow-up with your primary care provider if not feeling better. Vidhya Attestation: 09/15/17 01:21 I personally performed the services described in the documentation, reviewed and edited the documentation which was dictated to the scribe in my presence, and it accurately records my words and actions. (KEVIN MCNEIL) Scribe Documentation - Scribe Written by Vidhya:: Vidhya Nelson, 09/15/2017 00:49 acting as scribe for :: Niki <AGA JEROME - Last Filed: 09/15/17 02:00>
[2017-09-15 00:51] LABS: ABSOLUTE EOSINOPHILS # (AUTO) 0.1 10^3/uL (0.0-0.6); ABSOLUTE LYMPHOCYTES (AUTO) 1.8 10^3/uL (0.5-4.7); ABSOLUTE MONOCYTES (AUTO) 0.6 10^3/uL (0.1-1.4); BASOPHILS % (AUTO) 0.4 % (0-2); EOSINOPHILS % (AUTO) 1.5 % (0-6); HEMATOCRIT 37.5 % (36.0-47.0); LYMPHOCYTES % (AUTO) 18.9 % (13-45); MEAN CORPUSCULAR HEMOGLOBIN 25.4 pg (27.0-33.4); MEAN CORPUSCULAR VOLUME 80 fl (80-97); MONOCYTES % (AUTO) 5.9 % (3-13); PLATELET COUNT 217 10^3/uL (150-450); RED BLOOD COUNT 4.72 10^6/uL (3.72-5.28); RED CELL DISTRIBUTION WIDTH 16.9 % (11.5-14.0); SEGMENTED NEUTROPHILS % (AUTO) 73.3 % (42-78); TOTAL CELLS COUNTED % (AUTO) 100 %; WHITE BLOOD COUNT 9.5 10^3/uL (4.0-10.5)
[2017-09-15 00:53] LABS: ALANINE AMINOTRANSFERASE 10 U/L (9-52); ALBUMIN 4.1 g/dL (3.5-5.0); ALKALINE PHOSPHATASE 96 U/L (38-126); ANION GAP 14 (5-19); ASPARTATE AMINO TRANSFERASE 22 U/L (14-36); BILIRUBIN,DIRECT 0.5 mg/dL (0.0-0.4); BILIRUBIN,TOTAL 0.5 mg/dL (0.2-1.3); BLOOD UREA NITROGEN 21 mg/dL (7-20); CALCIUM 9.7 mg/dL (8.4-10.2); CARBON DIOXIDE 34 mmol/L (22-30); CHLORIDE 98 mmol/L (98-107); GLUCOSE 112 mg/dL (75-110); SODIUM 146.3 mmol/L (137-145); TOTAL PROTEIN 7.3 g/dL (6.3-8.2)
--- NOTE | 2017-09-15 01:41 | RADIOLOGY REPORT (SQ) ---
EXAM DESCRIPTION: Single view of the chest CLINICAL HISTORY: SOB COMPARISON: 08/09/2017 FINDINGS: Single frontal view of the chest. Tracheostomy. Cardiomegaly. Pulmonary vasculature within normal limits. Leads overlie the chest. No consolidation, pneumothorax, or pleural effusion. No acute osseous abnormalities. Low lung volumes. Upper abdominal soft tissues are unremarkable. IMPRESSION: 1. No acute pulmonary process. Cardiomegaly.
[2017-09-15 03:23] VITALS: BP 128/68
== END 2017-09-15 03:38 | disposition home or self-care (01) ==
LOC: ER 22:52
DX: R06.02 Shortness of breath (principal); R19.7 Diarrhea, unspecified; R42 Dizziness and giddiness; R53.1 Weakness; R60.9 Edema, unspecified; F17.210 Nicotine dependence, cigarettes, uncomplicated; I48.91 Unspecified atrial fibrillation; I50.9 Heart failure, unspecified; E78.00 Pure hypercholesterolemia, unspecified; I11.0 Hypertensive heart disease with heart failure; E11.9 Type 2 diabetes mellitus without complications; J44.9 Chronic obstructive pulmonary disease, unspecified; Z88.6 Allergy status to analgesic agent; Z86.14 Personal history of Methicillin resistant Staphylococcus aureus infection; Z93.0 Tracheostomy status
CPT/HCPCS: 36415; 71045; 80053; 83605; 85025; 87040; 87077; 87186; 99285

== ENCOUNTER 2019-07-18 13:54 | Emergency (ER) | payer MEDICAID ==
--- NOTE | 2019-07-18 17:31 | ER Document Report ---
ED General - General Chief Complaint: Other Stated Complaint: POSSIBLE TRACH ISSUE Primary Care Provider: SRAVANTHI LOJA MD [Primary Care Provider] - Follow up as needed NAYAN WEAVER MD [ACTIVE STAFF] - Follow up tomorrow (at 3:30pm, please arrive earlier to fill out paperwork) TRAVEL OUTSIDE OF THE [place] IN LAST 30 DAYS: No - HPI Notes: 53-year-old female with a history of hypertension, CHF, diabetes, obesity, trach placement presents to the emergency room via EMS for possible tracheostomy malfunction. Patient is not complaining of any respiratory distress or difficulty breathing but thinks she may have a "crack" at the base of her trach which she noticed this morning, trach has not been changed out for over 8 months even though and nursing noted only says 1 month. Patient is 100%. pt arrived by EMS for c/o tracheotomy malfunction, pt presented A/O, pt denying resp distress or difficulty breathing. Patient is 6L trach collar. Denies fevers, chills, chest pain,palpitations, shortness of breath, dyspnea, nausea, vomiting, diarrhea, abdominal pain, hematuria,blurred vision, double vision, loss of vision, speech changes, LH, dizziness, syncope, headaches, ST, URI, neck pain, weakness, bowel or bladder dysfunction, saddle anesthesia, numbness or tingling in bilateral upper or lower extremities equally, muscle paralysis, weakness in bilateral upper or lower extremities equally or rash. - Related Data Allergies/Adverse Reactions: ziprasidone HCl [From Geodon] Allergy (Mild, Verified 07/18/19 14:18) itching acetaminophen [Acetaminophen] Adverse Reaction (Unknown, Verified 07/18/19 14:18) Past Medical History - General Information source: Patient - Social History Smoking Status: Unknown if Ever Smoked Chew tobacco use (# tins/day): No Frequency of alcohol use: None Drug Abuse: None Family History: Reviewed & Not Pertinent, CAD, DM, Hypertension Patient has suicidal ideation: No Patient has homicidal ideation: No - Past Medical History Cardiac Medical History: Reports: Hx Atrial Fibrillation, Hx Congestive Heart Failure, Hx Coronary Artery Disease, Hx Hypercholesterolemia, Hx Hypertension, Hx Heart Murmur Denies: Hx DVT, Hx Pulmonary Embolism Pulmonary Medical History: Reports: Hx Asthma, Hx Bronchitis, Hx COPD, Hx Pneumonia, Hx Intubation, Hx Respiratory Failure, Hx Sleep Apnea Neurological Medical History: Denies: Hx Seizures Endocrine Medical History: Reports: Hx Diabetes Mellitus Type 2. Denies: Hx Diabetes Mellitus Type 1, Hx Hyperthyroidism, Hx Hypothyroidism Renal/ Medical History: Reports: Hx Renal Insufficiency. Denies: Hx Peritoneal Dialysis GI Medical History: Reports: Hx Gastroesophageal Reflux Disease, Hx Hiatal Hernia. Denies: Hx Cirrhosis, Hx Hepatitis Musculoskeletal Medical History: Reports Hx Arthritis, Reports Hx Fibromyalgia Psychiatric Medical History: Reports: Hx Attention Deficit Hyperactivity Disorder, Hx Bipolar Disorder, Hx Depression Traumatic Medical History: Reports: Hx Fractures Infectious Medical History: Reports: Hx C-Diff, Hx MRSA. Denies: Hx Hepatitis Past Surgical History: Reports: Hx Abdominal Surgery - upper hernia repair, Hx Appendectomy, Hx Tonsillectomy, Other - Permanent tracheostomy - Immunizations Hx Diphtheria, Pertussis, Tetanus Vaccination: Yes Hx Pneumococcal Vaccination: 05/06/09 Review of Systems - Review of Systems Constitutional: No symptoms reported EENT: No symptoms reported Cardiovascular: No symptoms reported Respiratory: See HPI Gastrointestinal: No symptoms reported Genitourinary: No symptoms reported Female Genitourinary: No symptoms reported Musculoskeletal: No symptoms reported Skin: No symptoms reported Hematologic/Lymphatic: No symptoms reported Neurological/Psychological: No symptoms reported Physical Exam - Vital signs Vitals: Temp Pulse Resp BP Pulse Ox 97.8 F 88 20 150/81 H 100 07/18/19 13:55 07/18/19 13:55 07/18/19 13:55 07/18/19 13:55 07/18/19 13:55 - Notes Notes: PHYSICAL EXAMINATION: reviewed vital signs by RN GENERAL: Chronically ill-appearing well-nourished and in no acute distress. HEAD: Atraumatic, normocephalic. EYES: Pupils equal round and reactive to light, extraocular movements intact, conjunctiva are normal. ENT: Nares patent, oropharynx clear without exudates. Moist mucous membranes. NECK: Normal range of motion, supple without lymphadenopathy LUNGS: 6.[address] without any surrounding erythema purulent drainage. breath sounds clear to auscultation bilaterally and equal. No wheezes rales or rhonchi. HEART: Regular rate and rhythm without murmurs ABDOMEN: Soft, nontender, nondistended abdomen. No guarding, no rebound. No masses appreciated. Musculoskeletal: Normal range of motion, no pitting or edema. No cyanosis. NEUROLOGICAL: Cranial nerves grossly intact. Normal speech, normal gait. Normal sensory, motor exams PSYCH: Normal mood, normal affect. SKIN: Warm, Dry, normal turgor, no rashes or lesions noted. Course - Re-evaluation Re-evalutation: 07/18/19 Afebrile vital stable no distress. Patient is 100% on 3 flow air. Patient has 6 Shiley, we do have this at bedside. Respiratory was called for bedside. Suction was in place, Dr. Velasco at bedside to determine if trach can be replaced at bedside, however, decided to call ENT, , ENT on-call,at 1810. He advised to extend the head back, to pull and if you may resistance is related to the balloon. Due to not changing the trach in a non-ICU setting, I decided to call Dr. Lucero, surgeon on-call. 1844-Dr. Shannon did attempt to replace trach however, patient's ostomy was smaller than the 6 Maltese that she has in, so it is likely that the 6 M[place] is not the size of the inner cannula. The hospital does not have a smaller trach size than 6. Dr. Weaver stated that she can be seen tomorrow at 3:30 in the afternoon, her vitals are stable, O2 is 100%. Patient verbalized an understanding of this and agree with plan of care. Contact information was given an appointment has been established. Patient was comfortable with this. And [facility]. After performing a Medical Screening Examination, I estimate there is LOW risk for ACUTE CORONARY SYNDROME, PULMONARY EMBOLI, RESPIRATORY FAILURE, SEPSIS OR MENINGITIS, thus I consider the discharge disposition reasonable. I have reevaluated this patient multiple times and no significant life threatening changes are noted. The patient and I have discussed the diagnosis and risks, and we agree with discharging home with close follow-up. We also discussed returning to the Emergency Department immediately if new or worsening symptoms occur. We have discussed the symptoms which are most concerning (e.g., changing or worsening pain, trouble swallowing or breathing, neck stiffness, fever) that necessitate immediate return. 07/18/19 19:30 - Vital Signs Vital signs: Temp Pulse Resp BP Pulse Ox 97.8 F 88 20 150/81 H 100 07/18/19 13:55 07/18/19 13:55 07/18/19 13:55 07/18/19 13:55 07/18/19 13:55 Discharge - Discharge Clinical Impression: trach discomfort Condition: Stable Disposition: HOME, SELF-CARE Additional Instructions: Please go to appointment at 330 tomorrow with ANNIE Lott to have your trach replaced. If you experience any difficulty breathing, fever chills, chest pain shortness of breath please call [phone] return to the emergency room. Return immediately for any new or worsening symptoms. Follow up with primary care provider, call tomorrow to make followup appointment. Referrals: SRAVANTHI LOJA MD [Primary Care Provider] - Follow up as needed NAYAN WEAVER MD [ACTIVE STAFF] - Follow up tomorrow (at 3:30pm, please arrive earlier to fill out paperwork)
[2019-07-18 20:25] VITALS: BP 161/83
== END 2019-07-18 20:26 | disposition home or self-care (01) ==
LOC: ER 13:54
DX: Z43.0 Encounter for attention to tracheostomy (principal); I10 Essential (primary) hypertension; I50.9 Heart failure, unspecified; E11.9 Type 2 diabetes mellitus without complications; E66.9 Obesity, unspecified; I48.91 Unspecified atrial fibrillation; E78.00 Pure hypercholesterolemia, unspecified; Z86.14 Personal history of Methicillin resistant Staphylococcus aureus infection
CPT/HCPCS: 99284

== ENCOUNTER → 2019-09-29 | Emergency (ER) | payer MEDICAID ==
[~2019-09-29] MED LIST: ALBUTEROL SULFATE 0.083% NEB 2.5 MG/3 ML AMPUL NEB ONE; CEFTRIAXONE INJ 1000 MG VIAL IV ONE; EPINEPHRINE INJ 1 MG/10 ML DISP.SYRIN ONE; EPINEPHRINE INJ/PF 1 MG/1 ML AMPULE ONE; IPRATROPIUM/ALBUTEROL 0.5-2.5 MG/3 ML AMPUL NEB ONE; METHYLPREDNISOLONE INJ 125 MG/2 ML SDV IV ONE; METRONIDAZOLE 500 MG/NS RTU 500 MG/100 ML RTUPB IV ONE; MIDAZOLAM HCL 50 MG/100 ML RTUINJ IV PRN; PROPOFOL 1,000 MG/100 ML INFUS..BTL IV PRN; RINGERS SOLUTION,LACTATED 1,000 ML IV ONE; SODIUM BICARBONATE 8.4% INJ 50 MEQ/50 ML DISP.SYRIN ONE
[2019-09-29 22:01] LABS: HEMATOCRIT 37.7 % (36.0-47.0); HEMOGLOBIN 11.6 g/dL (12.0-15.5); MEAN CORPUSCULAR HEMOGLOBIN 25.8 pg (27.0-33.4); MEAN CORPUSCULAR HGB CONC 30.8 g/dL (32.0-36.0); MEAN CORPUSCULAR VOLUME 84 fl (80-97); PLATELET COUNT 321 10^3/uL (150-450); RED BLOOD COUNT 4.49 10^6/uL (3.72-5.28); RED CELL DISTRIBUTION WIDTH 18.7 % (11.5-14.0); WHITE BLOOD COUNT 20.2 10^3/uL (4.0-10.5)
[2019-09-29 22:05] LABS: ALBUMIN 4.1 g/dL (3.5-5.0); ALKALINE PHOSPHATASE 90 U/L (38-126); ASPARTATE AMINO TRANSFERASE 38 U/L (14-36); BILIRUBIN,TOTAL 0.3 mg/dL (0.2-1.3); BLOOD UREA NITROGEN 23 mg/dL (7-20); CALCIUM 9.4 mg/dL (8.4-10.2); CARBON DIOXIDE 28 mmol/L (22-30); CHLORIDE 88 mmol/L (98-107); GLUCOSE 372 mg/dL (75-110); TOTAL PROTEIN 7.4 g/dL (6.3-8.2)
[2019-09-29 22:15] LABS: ANION GAP 20 (5-19)
--- NOTE | 2019-09-29 22:15 | RADIOLOGY REPORT (SQ) ---
EXAM DESCRIPTION: XR CHEST 1 VIEW COMPLETED DATE/TME: 09/29/2019 00:00 CLINICAL HISTORY: 53 years, Female, et placement EXAM DESCRIPTION: CLINICAL HISTORY: et placement COMPARISON: 01/16/2018 FINDINGS: Single view of the chest is submitted. Cardiac silhouette is again enlarged. This exam is severely limited technically and due to body habitus and superimposed densities. ET tube tip is at T3-4. Catheter tubing projects over the midline but detail is severely limited. Pulmonary edema has worsened. There are bilateral groundglass opacifications in the upper lateral lungs. IMPRESSION: Severely limited exam. Cardiomegaly. Worsened pulmonary edema with bilateral groundglass opacifications.
[2019-09-29 22:17] LABS: INTERNATIONAL RATION (INR) 1.11; PROTHROMBIN TIME 14.4 SEC (11.4-15.4); TROPONIN I 0.015 ng/mL
[2019-09-29 22:18] LABS: PARTIAL THROMBOPLASTIN TIME 31.7 SEC (23.5-35.8)
--- NOTE | 2019-09-29 22:53 | ER Document Report ---
ED General - General Chief Complaint: Respiratory Distress Stated Complaint: RESPIRATORY DISTRESS Primary Care Provider: SRAVANTHI LOJA MD [Primary Care Provider] - Follow up as needed Information source: Relative TRAVEL OUTSIDE OF THE [place] IN LAST 30 DAYS: No - HPI Notes: 53-year-old female history of severe morbid obesity, COPD and CHF as per medical records, tracheostomy for unknown indication presents with respiratory failure. EMS stated 911 called by family after patient became extremely short of breath just prior to arrival. On scene, O2 sat was in 30s and patient was minimally responsive, O2 sat improved with BVM ventilation en route. Patient arrived unresponsive unable to get O2 sat and patient quickly lost pulses in the ED. - Related Data Allergies/Adverse Reactions: ziprasidone HCl [From Geodon] Allergy (Mild, Verified 07/18/19 14:18) itching acetaminophen [Acetaminophen] Adverse Reaction (Unknown, Verified 07/18/19 14:18) Past Medical History - General Information source: Relative Cannot obtain history due to: Intubated - Social History Smoking Status: Smoker,Current Status Unk Family History: CAD, DM, Hypertension - Past Medical History Cardiac Medical History: Reports: Hx Atrial Fibrillation, Hx Congestive Heart Failure, Hx Coronary Artery Disease, Hx Hypercholesterolemia, Hx Hypertension, Hx Heart Murmur Denies: Hx DVT, Hx Pulmonary Embolism Pulmonary Medical History: Reports: Hx Asthma, Hx Bronchitis, Hx COPD, Hx Pneumonia, Hx Intubation, Hx Respiratory Failure, Hx Sleep Apnea Neurological Medical History: Denies: Hx Seizures Endocrine Medical History: Reports: Hx Diabetes Mellitus Type 2. Denies: Hx Diabetes Mellitus Type 1, Hx Hyperthyroidism, Hx Hypothyroidism Renal/ Medical History: Reports: Hx Renal Insufficiency. Denies: Hx Peritoneal Dialysis GI Medical History: Reports: Hx Gastroesophageal Reflux Disease, Hx Hiatal Hernia. Denies: Hx Cirrhosis, Hx Hepatitis Musculoskeletal Medical History: Reports Hx Arthritis, Reports Hx Fibromyalgia Psychiatric Medical History: Reports: Hx Attention Deficit Hyperactivity Disorder, Hx Bipolar Disorder, Hx Depression Traumatic Medical History: Reports: Hx Fractures Infectious Medical History: Reports: Hx C-Diff, Hx MRSA. Denies: Hx Hepatitis Past Surgical History: Reports: Hx Abdominal Surgery - upper hernia repair, Hx Appendectomy, Hx Tonsillectomy, Other - Permanent tracheostomy - Immunizations Hx Diphtheria, Pertussis, Tetanus Vaccination: Yes Hx Pneumococcal Vaccination: 05/06/09 Review of Systems - Review of Systems -: Yes ROS unobtainable due to patient's medical condition Physical Exam - Vital signs Vitals: Temp Pulse BP Pulse Ox 97.7 F 150 H 164/88 H 93 09/29/19 21:18 09/29/19 21:18 09/29/19 21:18 09/29/19 21:18 - Notes Notes: PHYSICAL EXAMINATION: GENERAL: Morbidly obese unresponsive middle-aged woman brought in by EMS. HEAD: Atraumatic, normocephalic. EYES: Pupils equal round dilated with slight reactivity bilaterally ENT: nares patent, moist mucous membranes. NECK: Supple, tracheostomy with trach collar attached without inner cannula tubing. Trach collar after being removed showed residue and signs of wear and can see where inner cannula detached LUNGS: Intubated with 6 oh ET tube through tracheostomy, bilateral breath sounds present and equal HEART: Regular tachycardia without murmurs ABDOMEN: Very large pannus, no pain reaction on palpation EXTREMITIES: Distal cyanosis, no edema. NEUROLOGICAL: Breathing above vent, pupils reactive bilaterally. PSYCH: Unable to assess SKIN: Cool, distal cyanosis, dry Course - Re-evaluation Re-evalutation: 09/30/19 00:11 ACLS started and patient received 2 rounds of epi and had PEA on rhythm checks and pulses returned after 9 minutes. During code I intubated patient through tracheostomy which had a trach collar in place but no inner cannula attached to it. After ROSC, patient able to maintain sats in high 90s with BVM and was transitioned to ventilator. Post arrest EKG showed no significant ischemic changes. Chest x-ray showed ET tube in place and also disconnected piece of what appeared to be airway tubing likely trach inner cannula in trachea and right bronchus. Patient hypertensive after Ross but then had few episodes of becoming bradycardia and hypotensive and so left patient on low dose epi drip. Ultimately ICU to see if they will be able to remove tubing that likely caused respiratory arrest, they examined patient ultimately recommended transfer. Consulted [facility] for transfer and discussed case with CT surgeon and CICU attend patricia Dubon who accepts the patient and requests hypothermia protocol. I called patient's next of kin, her brother, and discussed patient's care with him and he affirms that patient is full code. Patient's sister in law who patient lives with also called and I gave her general update on patient's status but referred her to discuss with patient's brother as he is next of kin. 09/30/19 04:24 Elevated lactate and leukocytosis likely secondary to cardiac arrest hypoperfusion and acute phase stress response, covered for possible aspiration pneumonia until clinical picture clarifies itself. Initial VBG showed respiratory acidosis but after increasing ventilation pH improved but CO2 worsened so made additional adjustments to vent. Transport team in the ED now with patient, patient's vitals have been stable on the vent, patient remains appropriate for transfer. - Vital Signs Vital signs: Temp Pulse Resp BP Pulse Ox 97.7 F 150 H 29 H 168/144 H 100 09/29/19 21:18 09/29/19 21:18 09/30/19 00:11 09/30/19 00:11 09/30/19 03:09 - Laboratory Result Diagrams: 09/29/19 21:10 09/30/19 01:21 Laboratory results interpreted by me: 09/29/19 09/29/19 09/29/19 21:10 21:10 21:10 WBC 20.2 H Hgb 11.6 L MCH 25.8 L MCHC 30.8 L RDW 18.7 H Abs Neuts (Manual) 13.9 H Abs Lymphs (Manual) 4.8 H VBG pH VBG pCO2 VBG HCO3 Sodium 135.9 L Chloride 88 L Carbon Dioxide Anion Gap 20 H BUN 23 H Creatinine 1.49 H Est GFR ( Amer) 45 L Est GFR (MDRD) Non-Af 37 L Glucose 372 H POC Glucose Lactic Acid 11.3 H Calcium AST 38 H NT-Pro-B Natriuret Pep 09/29/19 09/29/19 09/30/19 21:10 21:42 01:04 WBC Hgb MCH MCHC RDW Abs Neuts (Manual) Abs Lymphs (Manual) VBG pH 7.16 L* VBG pCO2 69.7 H* VBG HCO3 Sodium Chloride Carbon Dioxide Anion Gap BUN Creatinine Est GFR ( Amer) Est GFR (MDRD) Non-Af Glucose POC Glucose 371 H Lactic Acid Calcium AST NT-Pro-B Natriuret Pep 242 H 09/30/19 09/30/19 01:21 02:01 WBC Hgb MCH MCHC RDW Abs Neuts (Manual) Abs Lymphs (Manual) VBG pH 7.24 L VBG pCO2 85.0 H* VBG HCO3 35.8 H Sodium 135.8 L Chloride 94 L Carbon Dioxide 34 H Anion Gap BUN 24 H Creatinine Est GFR ( Amer) Est GFR (MDRD) Non-Af 50 L Glucose 308 H POC Glucose Lactic Acid Calcium 7.8 L AST NT-Pro-B Natriuret Pep - EKG Interpretation by Me Rate: Normal Rhythm: NSR Additional EKG results interpreted by me: 09/30/19 04:28 EKG not crossing over to EMR, showed normal sinus rhythm without any significant ST elevations or depressions and no significant T wave abnormalities Discharge - Discharge Clinical Impression: Cardiac arrest, Unspecified foreign body in trachea causing asphyxiation, initial encounter Condition: Critical Disposition: [facility] Admitting Provider: CICU attending Ling Referrals: SRAVANTHI LOJA MD [Primary Care Provider] - Follow up as needed
[2019-09-29 22:54] LABS: ABSOLUTE LYMPHOCYTES# (MANUAL) 4.8 10^3/uL (0.5-4.7); ABSOLUTE MONOCYTES # (MANUAL) 1.4 10^3/uL (0.1-1.4); BASOPHILS % (MANUAL) 0 % (0-2); EOSINOPHILS % (MANUAL) 0 % (0-6); LYMPHOCYTES % (MANUAL) 24 % (13-45); MONOCYTES % (MANUAL) 7 % (3-13); SEGMENTED NEUTROPHILS % (MAN) 69 % (42-78); TOTAL CELLS COUNTED 100
[2019-09-29 22:55] LABS: ANISOCYTOSIS 1+; HYPOCHROMASIA SLIGHT; PLATELET COMMENT ADEQUATE
[2019-09-29 22:57] LABS: OVALOCYTES SLIGHT; POLYCHROMASIA 1+
[2019-09-29 22:58] LABS: SCHISTOCYTES SLIGHT
[2019-09-30 00:14] VITALS: BP 168/144
[2019-09-30 01:16] LABS: VENOUS BLOOD BASE EXCESS -4.8 mmol/L; VENOUS BLOOD HCO3 24.2 mmol/L (20-32)
[2019-09-30 01:29] LABS: VENOUS BLOOD PH 7.16 (7.30-7.42)
[2019-09-30 01:30] LABS: VENOUS BLOOD PCO2 69.7 mmHg (35-63)
[2019-09-30 01:53] LABS: ANION GAP 8 (5-19); BLOOD UREA NITROGEN 24 mg/dL (7-20); CALCIUM 7.8 mg/dL (8.4-10.2); CARBON DIOXIDE 34 mmol/L (22-30); CHLORIDE 94 mmol/L (98-107); GLUCOSE 308 mg/dL (75-110); POTASSIUM 3.6 mmol/L (3.6-5.0)
[2019-09-30 02:11] LABS: VENOUS BLOOD HCO3 35.8 mmol/L (20-32); VENOUS BLOOD PH 7.24 (7.30-7.42)
--- NOTE | 2019-09-30 03:04 | RADIOLOGY REPORT (SQ) ---
EXAM DESCRIPTION: XR CHEST 1 VIEW COMPLETED DATE/TME: 09/30/2019 02:32 CLINICAL HISTORY: 53 years, Female, reassess fb COMPARISON: 09/29/2019 chest at 9:38 PM NUMBER OF VIEWS: 1 TECHNIQUE: Portable chest LIMITATIONS: None. FINDINGS: Cardiomegaly. Limited due to patient body habitus. However, partial visualization of what appears to be a tracheostomy tube, with a secondary piece of endotracheal tube being projecting over the trachea. No pneumothorax. Equivocal/mild pulmonary vascular congestion. Airspace opacity in the right suprahilar region. IMPRESSION: Limited exam, as above due to body habitus. Tracheostomy tube with an immediately adjacent piece of tubing projecting over the trachea. Correlate with physical exam findings and patient history. Right suprahilar airspace opacity. copyright 2010 [employer]- All Rights Reserved
--- NOTE | 2019-10-01 05:18 | Operative Report ---
Bedside Procedure - History of Present Illness History of Present Illness: NEENA ISLAS is a 53 year old female with a past medical history of severe morbid obesity, COPD and CHF as per medical records, tracheostomy for unknown indication who presented to [facility] ED via EMS in respiratory failure. Family called EMS after patient became extremely short of breath while reportedly thinking she was choking on beef roast during a meal just prior to arrival . Patient found to be minimally responsive by EMS and SPO2 reportedly in the 30s on scene which improved en route with [id number] ventilations. Patient arrived in the ED unresponsive with inability to get a good pulse oximetry pleth or SPO2 and patient quickly lost her pulse for which she received CPR for ~10 minutes per the ED physician. Her tracheostomy reportedly was just the hub with a cap attached to trach ties, but no inner cannula was present. Ms Islas's tracheal stoma was intubated with a size 6 Fr ETT for which her hypoxia was resolved. CXR demonstrates a foreign body in the mid-trachea extending into the right mainstem for which ICU was consulted to evaluate the patient for diagnosis and removal of possible foreign body. Date/Time of Procedure: 09/29/2019 22:30 pm PROCEDURE: EMERGENT BRONCHOSCOPY INDICATION: PRESENCE OF FOREIGN BODY IN AIRWAY CAUSING CARDIAC ARREST AND HYPOXIA PROCEDURALIST: KAREN CALLAWAY COMPLICATIONS: NONE MEDICATIONS: PT ALREADY ON VERSED INFUSION PRIOR TO MY ARRIVAL AND WAS ADEQUATELY SEDATED Goal is to diagnose what or if a foreign body is present in the airway, determine distance from tracheal stoma, and determine whether or not it can be removed safely here at [facility] with a preference of not leaving it in place since the patient just experienced cardiac arrest from presumed asphyxiation. Plan is to attempt to access the trachea from above by intubating the vocal cords given I am unable to pass the bronchoscope through the size 6 Fr ETT that is currently in the stoma and the stoma appears to to be tight around the tube, not allowing for passage of a larger tube over an airway exchanger. Patient placed in proper procedural position followed by introduction of flexible bronchoscope into left nare and gently navigating down to hypopharynx. I was unable to intubate the vocal cords due to the collapse of a significant amount of soft tissue surrounding arytinoid cartilage below the epiglottis. Therefore, a video laryngoscope with hyperangulated blade was then gently inserted via the mouth lifting the epiglottis and the vocal cords were able to be exposed easier with a gentle lift. I decided to intubate in usual fashion orally for which I first assessed whether or not I could pass a size 7 Fr ETT but the tube would not easily pass through the cords with gentle pressure. To avoid injuring the cords, I removed the 7 Fr and loaded a 6.5 Fr ETT which still allows for passage of a bronchoscope through the lumen. I was able to pass a 6.5 Fr ETT through the cords without difficulty or force for which I merely went a few cm past visualizing the tube go through the cords. I then introduced a bronchoscope through the oral ETT and was unable to navigate around the size 6 ETT tracheal tube as I had hoped for. Since I was in the trachea from above with the bronchoscope serving as a stylet, I asked RT to extubate the tracheal stoma while I still had the bronchoscope with loaded ETT visualizing from just above the tracheal stoma (to note, emergency equipment remains in the room for which I also had a bougie, ambu bag, colorimetry detector, and several ETT's. I then advanced the endotracheal tube with a plan of inflating the balloon just past the tracheal stoma defect so there would be no air leak from ventilation. However, just superior to the stoma I discovered a significant amount of granulation tissue which would not easily allow for passage of the ETT or bronchoscope. Therefore, the attempt to identify the foreign body was aborted. A bougie was introduced through the tracheal stoma and a size 6 Fr ETT was gently placed over the bougie into the trachea for which a slight tap was felt at 9 cm on the ETT at the level of the skin and advancement was ceased. The ETT balloon was inflated and the patient as returned to the ventilator on same settings with an SPO2 of 96%. Patient tolerated procedure well. No complications. Unfortunately, we were unable to identify the foreign body but would suspect it is remnants of the inner cannula of the existing XL trach hub given shape, size, and accounting of events/findings. We were therefore, also not able to determine distance of the stoma to the foreign body to evaluate for how the foreign body could be retrieved. At this time we feel it is in the best interest of the patient to transfer Ms Islas to a tertiary care center with Cardiothoracic Surgery to evaluate for surgical removal. I discussed the case events/findings with Dr Brito. I then informed Dr Pagan of the need to facilitate transfer for which she will coordinate. ICU will sign off as a medical consult. If there is yet another medical emergency, please do not hesitate to contact us. Indication for Procedure: Obstruction of airway with foreign body causing hypoxia & cardiac arrest Date: 09/29/19 Provider: FELICITA MIRZA
--- NOTE | 2019-10-01 05:19 | PDOC CONSULTATION ---
Consultation Consult Date: 09/29/19 Provider Consulted: FELICITA MIRZA Consult reason:: possible foreign body in airway History of Present Illness Admission Date/PCP: SRAVANTHI LOJA MD Patient complains of: Comatose History of Present Illness: NEENA ISLAS is a 53 year old female with a past medical history of severe morbid obesity, COPD and CHF as per medical records, tracheostomy for unknown indication who presented to [facility] ED via EMS in respiratory failure. Family called EMS after patient became extremely short of breath while reportedly thinking she was choking on beef roast during a meal just prior to arrival . Patient found to be minimally responsive by EMS and SPO2 reportedly in the 30s on scene which improved en route with [id number] ventilations. Patient arrived in the ED unresponsive with inability to get a good pulse oximetry pleth or SPO2 and patient quickly lost her pulse for which she received CPR for ~10 minutes per the ED physician. Her tracheostomy reportedly was just the hub with a cap attached to trach ties, but no inner cannula was present. Ms Islas's tracheal stoma was intubated with a size 6 Fr ETT for which her hypoxia was resolved. CXR demonstrates a foreign body in the mid-trachea extending into the right mainstem for which ICU was consulted to evaluate the patient. Past Medical History Cardiac Medical History: Reports: Atrial Fibrillation, Congestive Heart Failure, Coronary Artery Disease, Hyperlipidema, Hypertension, Heart Murmur Denies: DVT, Pulmonary Embolism Pulmonary Medical History: Reports: Asthma, Bronchitis, Chronic Obstructive Pulmonary Disease (COPD), Intubation, Pneumonia, Respiratory Failure, Sleep Apnea Neurological Medical History: Denies: Seizures Endocrine Medical History: Reports: Diabetes Mellitus Type 2 Denies: Diabetes Mellitus Type 1, Hyperthyroidism, Hypothyroidism GI Medical History: Reports: Gastroesophageal Reflux Disease, Hiatal Hernia Denies: Cirrhosis, Hepatitis Musculoskeltal Medical History: Reports: Arthritis, Fibromyalgia Psychiatric Medical History: Reports: Attention Deficit Hyperactivity Disorder, Bipolar Disorder, Depression Infectious Medical History: Reports: Clostridium Difficile, Methicillin- Resistant Staph Aureus Past Surgical History Past Surgical History: Reports: Appendectomy, Tonsillectomy, Other - Permanent tracheostomy Social History Smoking Status: Unknown if Ever Smoked Frequency of Alcohol Use: None Hx Recreational Drug Use: No Drugs: None Hx Prescription Drug Abuse: No Family History Family History: Reviewed & Not Pertinent, CAD, DM, Hypertension Parental Family History Reviewed: No - N/A Children Family History Reviewed: NA Sibling(s) Family History Reviewed.: NA Medication/Allergy Home Medications: Lorazepam [Ativan 0.5 mg Tablet] 0.5 mg PO Q8HP PRN 11/04/16 Lurasidone HCl [Latuda] 60 mg PO BIDBS 11/04/16 Amlodipine Besylate [Norvasc 5 mg Tablet] 5 mg PO Q12 tablet 11/06/16 Trazodone HCl [Desyrel 50 mg Tablet] 100 mg PO HSP PRN tablet 11/06/16 Nystatin 1 each MC BID #1 powder.ea. 11/10/16 Albuterol Sulfate [Proair HFA Inhalation Aerosol 8.5 gm MDI] 2 puff IH Q4HP PRN 01/14/18 Albuterol Sulfate [Ventolin 0.083% Neb 2.5 mg/3 mL Ampul] 2.5 mg NEB RTQ6HP PRN 01/14/18 Dextroamphetamine/Amphetamine [Adderall XR 25 mg Capsule] 25 mg PO BID 01/14/18 Lidocaine 1 applic TP DAILYP PRN 01/14/18 Oxycodone HCl [Oxy-Ir 5 mg Tablet] 5 mg PO Q8HP PRN 01/14/18 Bumetanide 2 mg PO BID 30 Days #60 tablet 01/21/18 Levofloxacin [Levaquin 750 mg Tablet] 750 mg PO QHS 3 Days #3 tablet 01/21/18 Allergies/Adverse Reactions: ziprasidone HCl [From Geodon] Allergy (Mild, Verified 07/18/19 14:18) itching acetaminophen [Acetaminophen] Adverse Reaction (Unknown, Verified 07/18/19 14:18) Review of Systems ROS unobtainable: Due to endotracheal tube, Due to mental status Physical Exam Vital Signs: Temp Pulse Resp BP Pulse Ox 98 09/29/19 21:45 General appearance: PRESENT: no acute distress, morbidly obese, well-nourished Head exam: PRESENT: atraumatic, normocephalic Eye exam: PRESENT: conjunctiva pink, PERRLA Ear exam: PRESENT: normal external ear exam Mouth exam: PRESENT: neck supple, tongue midline Teeth exam: PRESENT: other - no teeth present, suspect has dentures Throat exam: ABSENT: post pharyngeal erythema Neck exam: PRESENT: tracheostomy - stoma with sz [address] at 9 cm at the skin. ABSENT: tracheal deviation Respiratory exam: PRESENT: decreased breath sounds - right lung gold Cardiovascular exam: PRESENT: +S1, +S2 Vascular exam: PRESENT: normal capillary refill GI/Abdominal exam: PRESENT: hypoactive bowel sounds Gentrourinary exam: PRESENT: indwelling catheter - with very concentrated appearing urine Neurological exam: PRESENT: other - intubated, sedated on versed infusion Results Laboratory Results: 09/29/19 21:10 09/29/19 21:10 09/29/19 09/29/19 09/29/19 21:10 21:10 21:10 WBC 20.2 H RBC 4.49 Hgb 11.6 L Hct 37.7 MCV 84 MCH 25.8 L MCHC 30.8 L RDW 18.7 H Plt Count 321 Seg Neutrophils % Not Reportable Sodium 135.9 L Potassium 4.0 Chloride 88 L Carbon Dioxide 28 Anion Gap 20 H BUN 23 H Creatinine 1.49 H Est GFR ( Amer) 45 L Glucose 372 H Lactic Acid 11.3 H Calcium 9.4 Total Bilirubin 0.3 AST 38 H Alkaline Phosphatase 90 Total Protein 7.4 Albumin 4.1 09/29/19 21:10 Troponin I 0.015 NT-Pro-B Natriuret Pep 242 H Impressions: Chest X-Ray 09/29/19 00:00 IMPRESSION: Severely limited exam. Cardiomegaly. Worsened pulmonary edema with bilateral groundglass opacifications. Assessment & Plan - Diagnosis (1) Unspecified foreign body in trachea causing asphyxiation, initial encounter Is this a current diagnosis for this admission?: Yes Plan: See procedure note. Transfer to higher level of care for evaluation of surgical foreign body removal from airway. (2) Coma Qualifiers: Coma depth: Gissel coma 3-8 Coma timing: unspecified coma timing Qualified Code(s): R40.2430 - Gissel coma scale score 3-8, unspecified time Is this a current diagnosis for this admission?: Yes Plan: per ED physician (3) Cardiac arrest with successful resuscitation Is this a current diagnosis for this admission?: Yes Plan: Transfer to [facility] for higher level of care due to foreign body in airway. - Time Time Spent with patient: 5 minutes excluding procedural time Total Critical Time (Minutes): 30 - reviewing imaging and discussing case with nurses, RT, and ER MD Disposition: [facility] for Cardiothoracic surgery evaluation to remove foreign body from airway. - Plan Summary Plan Summary: Transfer to higher level of care for surgical evaluation.
== END | disposition short-term general hospital (02) ==
LOC: ER 21:18
DX: T17.400A Unspecified foreign body in trachea causing asphyxiation, initial encounter (principal); X58.XXXA Exposure to other specified factors, initial encounter; I46.9 Cardiac arrest, cause unspecified; J96.91 Respiratory failure, unspecified with hypoxia; R00.1 Bradycardia, unspecified; J44.9 Chronic obstructive pulmonary disease, unspecified; Z93.0 Tracheostomy status; I25.10 Atherosclerotic heart disease of native coronary artery without angina pectoris; I11.0 Hypertensive heart disease with heart failure; I50.9 Heart failure, unspecified; E11.9 Type 2 diabetes mellitus without complications; F90.9 Attention-deficit hyperactivity disorder, unspecified type; F31.9 Bipolar disorder, unspecified; Z79.899 Other long term (current) drug therapy; Z88.8 Allergy status to other drugs, medicaments and biological substances; Z20.828 Contact with and (suspected) exposure to other viral communicable diseases
CPT/HCPCS: 31622; 99285; 92950; 96365; 36415; 87040; 82962; 83605; 85025; 85610; 85730; 87635; 87077; 80048; 80053; 84484; 87186; 82803; 87150 ×26; 83880; 71045; J0171; J2930; J3490; J7120; J7620; C9803; 94002; 94660; J0696; J2250; J2704